=== PATIENT | male | born 1980 | race Caucasian/White ===

== ENCOUNTER 2017-07-23 08:14 | Day surgery (SDC) | payer MEDICARE, MEDICAID, SELFPAY ==
--- NOTE | 2017-07-23 | COLBX_PTH ---
PATIENT: CAS SANCHEZ LOC: EN U#:[id number] AGE/SX: 37/M ROOM: RE07/23/[address]: Dr. Des Hurd MD : 1980 BED: DIS: 07/23/2017 SPEC #: [id number] RECD: 07/23/17 11:43 STATUS: LIAN TIMOTHY #: [id number] SELINA: 07/23/17 00:[address]: Des Hurd DEPT: SURGICAL PATHOLOGY RECD BY: Kris Lott ENTERED: 07/23/17 11:43 SP TYPE: COLON BX OTHR DR: No Primary Care Phys Tissues: Rectum, NOS Procedures: Surgery Specimen Level IV HEADER OPERATION: Colonoscopy with biopsy PRE-OP DIAGNOSIS: History of polyp TISSUE SUBMITTED: Rectal polyp biopsy MICROSCOPIC DIAGNOSIS Rectal polyp, biopsy: Hyperplastic polyp. SJ:beatris 07/24/17 MICROSCOPIC DESCRIPTION Slides are reviewed. GROSS DESCRIPTION Received in fixative is one container labeled with the patient's name and designated rectal polyp biopsy. The specimen consists of one irregular fragment of light go soft tissue that measures 0.5 x 0.2 x 0.1 cm. The specimen is totally submitted in one cassette. / SJ:beatris 07/23/17 TC:1 CPT: 25457
[2017-07-23 08:44] VITALS: BP 128/84; PULSE 99; RESP 16; TEMP 37.3; O2SAT 97; BMI 27.2
--- NOTE | 2017-07-23 10:32 | PCM.OPRPT ---
Problem List (1) Personal history of colonic polyps Status: Acute Report of Operation Date of Procedure: 07/23/17 Pre-Operative Diagnosis: z86.010 personal history of colonic polyps Post-Operative Diagnosis: Same Surgery/Procedure Performed:: 09240 colonoscopy with biopsy Type of Anesthesia:: MAC Description of Procedure: Patient was brought into the endoscopy suite. Placed in the left lateral decubitus position. Was given graded anesthesia. Colonoscopic scope was inserted into the rectum. Scope was directed through the sigmoid colon, descending colon, transverse colon, ascending colon, cecum, into the terminal ileum. Operative findings: 1. Terminal ileum: Normal appearance no mass lesions mucosal all look normal no signs of friability no signs of bleeding. 2. Cecum: Normal appearance no mass lesions normal ileocecal valve. 3. Ascending colon: Normal appearance no mass lesions. 4. Transverse colon: Normal appearance no mass lesions. 5. Descending colon: Normal appearance no mass lesions. 6. Sigmoid colon: Normal appearance no mass lesions. 7. Rectum: Normal appearance small hyperplastic polyp was identified was removed with biopsy forceps in its entirety. It was sent to pathology for permanent sectioning. The scope was withdrawn and a rectal exam was performed showing a smooth prostate with no nodules. There are no masses within his anus. The mucosa the entire colon was normal there is no signs of erythema there was no signs of colitis. - Admit VTE Documentation VTE Present on Admission: No VTE Mechan Device Prophylaxis: None VTE Pharm Prophylaxis ordered?: No Reason prophylaxis not ordered:: Treatment Not Indicated
[2017-07-23 10:35] VITALS: BP 128/84; BP 138/98; PULSE 116; RESP 16; TEMP 37.9; O2SAT 96
[2017-07-23 10:45] VITALS: BP 125/78; PULSE 99; RESP 18; O2SAT 96
[2017-07-23 10:50] VITALS: BP 127/86; BP 128/84; PULSE 93; RESP 16; TEMP 37.8; O2SAT 96
[2017-07-23 11:11] VITALS: BP 128/84
== END 2017-07-23 11:13 | disposition home or self-care (01) ==
LOC: EN 08:17 → AC 08:18
PROVIDERS: Visit Provider Surgery
PROC: 0DJD8ZZ Inspection of Lower Intestinal Tract, Via Natural or Artificial Opening Endoscopic (ICD-10-PCS; CPT 45378; principal; 2017-07-23 10:10)
DX: K62.1 Rectal polyp (principal); I10 Essential (primary) hypertension; F31.9 Bipolar disorder, unspecified; K21.9 Gastro-esophageal reflux disease without esophagitis; F41.9 Anxiety disorder, unspecified; F17.210 Nicotine dependence, cigarettes, uncomplicated; Z86.010 Personal history of colon polyps; Z86.718 Personal history of other venous thrombosis and embolism
CPT/HCPCS: 45380; 88305; J7120; J1610

== ENCOUNTER 2017-08-20 09:08 | Emergency (ER) | payer MEDICARE, MEDICAID, SELFPAY ==
[2017-08-20 09:10] VITALS: BP 94/69; PULSE 147; RESP 24; TEMP 36.8; O2SAT 97; BMI 31.4
--- NOTE | 2017-08-20 09:20 | CT_ITS ---
STUDY: CT ABDOMEN AND PELVIS WITHOUT CONTRAST REASON FOR EXAM: Male, 37 years old. Right-sided flank pain x1 week. RADIATION DOSAGE (If Supplied By Facility): CTDIvol = ( 12.60 ) mGy, DLP = ( 629.81 ) mGycm TECHNIQUE: Transaxial images were obtained from the dome of the diaphragm to the symphysis pubis without oral contrast, and without intravenous contrast. Sagittal and coronal images were reconstructed. Individualized dose optimization techniques were used for this CT. COMPARISON: March 24, 2017. FINDINGS: The visualized lung bases are unremarkable. The visualized portions of the heart are within normal limits. Normal liver. Normal gallbladder and extrahepatic biliary system. Normal spleen. Normal pancreas. There is mild left adrenal hyperplasia. Right adrenal appears unremarkable. There is a 2 mm nonobstructing calculi within the collecting system of the left renal upper pole seen on sequence 2, image 54. There is a 5.3 mm calculi within the collecting system of the right renal midpole to lower pole junction on sequence 2, image 70. Normal visualized stomach. Normal small intestine. Normal colon. The appendix is visualized and appears normal. Normal abdominal aorta. Normal inferior vena cava. Normal retroperitoneum. Normal urinary bladder. Normal abdominal wall. Normal osseous structures. CT/Abdomen/Pelvis without Cont IMPRESSION: Stable mild left adrenal hyperplasia. Bilateral nonobstructing renal calculi. The largest measures 5.3 mm in maximum dimension within the collecting system of the right renal midpole to lower pole junction region. No hydronephrosis. No ureteral calculi. No hydroureter. Electronically Signed: Heriberto Gayle MD at 11:04 EDT , Service support ,
[2017-08-20 10:03] LABS: Absolute Lymphocyte Count 1.65 X10^3/ul (0.83-4.51); Absolute Neutrophil Count 7.2 X10^3/uL (2.0-7.7); Basophil# 0.01 X10^3/uL; Basophil% 0.1 % (0-1); Eosinophil# 0.07 X10^3/uL; Eosinophils% 0.7 % (0-5); Hemoglobin 16.3 g/dl (13.0-16.5); Lymphocyte # 1.65 X10^3/ul (4.0); Lymphocyte % 17.1 % (19-41); Mean Corp Hgb Conc 36.2 g/gl (32-36); Mean Corpuscular Hgb 29.8 pg (27.0-32.0); Mean Corpuscular Volume 82.3 fL (80-94); Mean Platelet Vol. 11.9 fl (6.2-12.0); Monocyte# 0.71 X10^3/uL; Monocyte% 7.4 % (0-10); Neutrophil # 7.18 X10^3/uL (2.7-7.7); Neutrophil % 74.4 % (47-70); Platelet Count 243 K/mm3 (150-450); RBC Distribution Width CV 13.9 % (11.6-14.6); RBC Distribution Width SD 41.7 fl (35.1-43.9); Red Blood Count 5.47 M/mm3 (4.6-6.2); White Blood Count 9.7 K/mm3 (4.4-11.0)
[2017-08-20] MEDS: proMETHazine 25 MG/ML Syringe 12.5 MG IV (10:03)
[2017-08-20 10:04] LABS: POSITIVE COUNT NO; POSITIVE DIFFERENTIAL NO; POSITIVE MORPHOLOGY NO
[2017-08-20] MEDS: HYDROmorphone 1 MG/ML Syringe IV ×2 (10:04→12:44)
[2017-08-20] MEDS: Ketorolac 30 MG/ML Syringe IV (10:04)
[2017-08-20] MEDS: 0.9% Normal Saline 1,000 ML 1000 ML IV ×2 (10:04→11:24)
[2017-08-20 10:13] LABS: ALB/GLOB Ratio 1.4 RATIO (0.9-2.4); AST(SGOT) 17 U/L (15-37); Alanine Aminotransfer ALT/SGPT 31 U/L (16-61); Albumin, Serum 4.9 g/dL (3.2-5.0); Alkaline Phosphatase 95 U/L (45-117); Anion Gap 10 (5-15); BUN 12 mg/dL (7-18); BUN/Creat Ratio 10.5 RATIO (10-20); CPK Total, Creatine Kinase 106 U/L (39-308); Calcium,Total 9.8 mg/dL (8.5-10.1); Chloride 108 mmol/L (98-107); Creatinine, Serum 1.14 mg/dL (0.70-1.30); EST Glomerular Filtration Rate 76 mL/min (>60); Est Glom Filt Rate - Afr Amer 92 mL/min (>60); Estimated Creatinine Clearance 98.32 ml/min; Globulin 3.5 g/dL (2.2-4.2); Glucose 103 mg/dL (74-106); Potassium 4.1 mmol/L (3.5-5.1); Protein, Total 8.4 g/dL (6.4-8.2); Sodium Level 135 mmol/L (136-145)
[2017-08-20 10:17] LABS: Red Blood Cells-Urine 0 SEEN /hpf (0-5); Squamous Epithelial Cells - UA 0 SEEN /hpf (0-5); White Blood Cells 0 SEEN /hpf (0-5)
[2017-08-20 10:20] LABS: Color, Urine Yellow (Yellow); Glucose, Dipstick Normal (Normal); Ketone-Dipstick 50 mg/dl (Negative); Leukocyte Esterase-Dipstick Negative /ul (Negative); Nitrite-Dipstick Negative (Negative); Occult Blood-Urine 10 /ul (Negative); Protein-Dipstick 15 mg/dl (Negative); Urine Bilirubin Dipstick Negative (Negative); Urine Clarity Clear (Clear); Urine Urobilinogen Normal (Normal)
[2017-08-20 10:26] LABS: Bacteria RARE /hpf (None Seen); Mucous, Urine RARE /hpf (<or=2+)
[2017-08-20 11:10] VITALS: BP 133/81; PULSE 115; RESP 16; O2SAT 98
--- NOTE | 2017-08-20 11:13 | ED.VISSUMM ---
- ER Visit Summary Date of Service: 08/20/17 Chief Complaint: [Abdominal pain] History of Present Illness: The patient is a 37 M [presents the emergency department with right lower quadrant pain and right low back pain that started about a week ago. Patient rates his pain an 8 out of 10. Patient's had nausea but no vomiting. Patient did have some diarrhea ?2 today. Patient states at times a stool looks a little orange and has a follow odor to it. Patient states that he has had decreased urine output. Patient does have a history of cyclic vomiting syndrome, GERD, bipolar disorder, Guilbert syndrome. Patient denies any fevers at home. She describes a dry mouth.] Physical Examination: [HEENT-PERRLA, EOMI. Cranial nerves II through XII grossly intact. TMs clear. Mucous membranes dry. No adenopathy. Cardiovascular-regular and tachycardic, no murmurs auscultated Lungs-clear to auscultation, chest wall stable without crepitus or subcu emphysema Abdomen-normoactive bowel sounds, soft patient has some right lower quadrant tenderness on palpation with some guarding. There is no rebound, rigidity, or perineal signs. Patient has some mild CVA tenderness on the right. Extremities-intact ?4, normal range of motion, normal pulses, atraumatic] Test Results: [CBC with differential obtained showed a white count of 9.7, hemoglobin 16, hematocrit 45, platelets 243. Chemistries unremarkable. CO2 was 17. LFTs were unremarkable. Urinalysis showed no signs of infection but he did have ketones noted. CT flank showed renal stones nonobstructing otherwise nothing acute.] Emergency Department Course and Treatment: [Patient will receive 2 L of normal saline. Patient's nausea improved with Phenergan.] Treatment Plan: [She will be given a prescription for Phenergan] Disposition: [Discharged home in stable condition. Patient advised to return if worsening pain, fever, dehydration, or condition should worsen in any way.] Impression: [Abdominal pain-etiology uncertain Dehydration] This note was generated with [employer] dictation software. It may contain incorrect words, spelling, and punctuation that were not noted in review of the chart prior to signing ED Disposition - Plan for ED Patient: Chief Complaint: General Illness Referrals: Care Physician,No Primary [Primary Care Provider] -
--- NOTE | 2017-08-20 11:17 | ED.DEP ---
ED Disposition - Plan for ED Patient: Chief Complaint: General Illness Instructions: ED Abdominal Pain Unkn Cause, ED Dehydration Prescriptions: proMETHazine tablet [Phenergan] 25 mg PO Q6H PRN PRN #10 tab PRN Reason: Nausea Referrals: Care Physician,No Primary [Primary Care Provider] - Lyndon Landon MD [STAFF PHYSICIAN] - 3-5 Days
[2017-08-20] MEDS: Ondansetron 4 MG/2 ML Vial IV (11:21)
[2017-08-20 14:16] VITALS: BP 134/94; PULSE 110; RESP 16; O2SAT 98
== END 2017-08-20 14:17 | disposition home or self-care (01) ==
PROVIDERS: Emergency Provider Emergency Medicine
DX: R10.9 Unspecified abdominal pain (principal); E86.0 Dehydration; R11.0 Nausea; K21.9 Gastro-esophageal reflux disease without esophagitis; I10 Essential (primary) hypertension; N20.0 Calculus of kidney; Z72.0 Tobacco use
CPT/HCPCS: 74176; 80053; 81001; 82550; 85025; 99284; J7030; A4216; J2405

== ENCOUNTER 2017-08-21 14:39 | Emergency (ER) | payer MEDICARE, MEDICAID, SELFPAY ==
[2017-08-21 14:40] VITALS: BP 133/71; PULSE 129; PULSE 132; RESP 20; TEMP 36.7; O2SAT 97; O2SAT 99; BMI 26.8
--- NOTE | 2017-08-21 15:00 | ED.DCSUM_ITS ---
- ER Visit Summary Date of Service: 08/21/17 Chief Complaint: Abdominal pain with nausea and vomiting since 02: 00. History of Present Illness: The patient is a 37 M who was seen yesterday had a significant workup including a CAT scan of the abdomen which revealed nonobstructing renal stones. He was treated with 2 L of normal saline and opiate analgesia. He reports history of cyclic vomiting. states he did not wish to return. Patient is apologetic that he return. He denies fever, chills night sweats. He denies headache, visual, ocular auditory symptoms. He does give orthostatic symptoms. He denies any cardiac or respiratory symptoms. He complains of severe pain left side of the abdomen and right lower quadrant. He denies any history of trauma. He states he had a bowel movement this morning. He is passing gas. He reports decreased urine output. Physical Examination: Vitals are remarkable for elevated blood pressure 133/71, heart rate 132. HEENT exam is marked for dry mucosa. Heart is rapid and regular without murmur, gallop or rub. Lungs are clear to auscultation. Abdomen is soft with tenderness without guarding or rebound tenderness. Bowel sounds are slightly diminished. There is no hepatosplenomegaly. There is no evidence of trauma to the torso. Neuro exam is nonfocal. Test Results: None were ordered Emergency Department Course and Treatment: Since patient has significant workup yesterday which was unremarkable will treat with IV fluids and entered cyclic vomiting order set. Nursing staff was told he would not receive any opiate analgesia since this causes nausea and vomiting. Treatment Plan: Informed at 1605 he was complaining of pain. Bentyl was ordered. He will receive 2 L of normal saline. Disposition: Pending reevaluation after treatment Impression: 1. Moderate to severe dehydration secondary to cyclic vomiting 2. Sinus tachycardia documented on monitor 3. History of PTSD 4. History of hypertension This note was generated with [employer] dictation software. It may contain incorrect words, spelling, and punctuation that were not noted in review of the chart prior to signing ED Disposition - Plan for ED Patient: Disposition: Home or Assisted Living Chief Complaint: Abd Pain Instructions: When Your Child Has Cyclic Vomiting Syndrome ([facility]) Referrals: Care Physician,No Primary [Primary Care Provider] -
[2017-08-21] MEDS: Ondansetron 4 MG/2 ML Vial IV (15:13)
[2017-08-21] MEDS: LORazepam 2 MG/ML Syringe 0.5 MG IV (15:13)
[2017-08-21] MEDS: 0.9% Normal Saline 1,000 ML 1000 ML IV ×2 (15:57→16:52)
[2017-08-21] MEDS: Dicyclomine 10 MG Capsule 20 MG PO (16:48)
[2017-08-21] MEDS: 0.9% Normal Saline 1,000 ML 999 ML IV ×2 (16:51→18:21)
[2017-08-21 16:52] VITALS: BP 120/89; PULSE 110; RESP 24; O2SAT 99
[2017-08-21] MEDS: Ketorolac 30 MG/ML Syringe IV (17:21)
[2017-08-21 18:10] VITALS: BP 127/82; PULSE 103; RESP 20; O2SAT 95
[2017-08-21 18:52] VITALS: BP 131/85; PULSE 99; RESP 18; O2SAT 96
== END 2017-08-21 18:53 | disposition home or self-care (01) ==
PROVIDERS: Emergency Provider Emergency Medicine
DX: G43.A0 Cyclical vomiting, in migraine, not intractable (principal); R00.0 Tachycardia, unspecified; I10 Essential (primary) hypertension; N20.0 Calculus of kidney; Z72.0 Tobacco use
CPT/HCPCS: 99282; J7030; J2405; J3490

== ENCOUNTER → 2017-09-08 12:09 | Outpatient (CLI) | payer MEDICARE, MEDICAID, SELFPAY ==
--- NOTE | 2017-09-08 08:00 | LES_PTH ---
PATIENT: CAS SANCHEZ LOC: APRIL U#:[id number] AGE/SX: 44/M ROOM: RE09/08/[address]: Dr. Des Hurd MD : 1980 BED: DIS: SPEC #: [id number] RECD: 09/08/17 11:53 STATUS: LIAN TIMOTHY #: [id number] SELINA: 09/08/17 08:[address]: Des Hurd DEPT: SURGICAL PATHOLOGY RECD BY: Kris Lott ENTERED: 09/10/17 10:37 SP TYPE: Lesion OTHR DR: No Primary Care Phys Tissues: A - Skin of back, NOS B - Skin of back, NOS C - Skin of flank, NOS Procedures: Surgery Specimen Level III HEADER OPERATION: Excision of subcutaneous lesions PRE-OP DIAGNOSIS: Lesions of subcutaneous tissue L98.9 TISSUE SUBMITTED: A - Subcutaneous lesion of center back, B - Subcutaneous lesion of right lower back, C - Subcutaneous lesion of left ribs MICROSCOPIC DIAGNOSIS A. Subcutaneous lesion, center back, biopsy: Angiolipoma. B. Subcutaneous lesion, right lower back, biopsy: Angiolipoma. C. Subcutaneous lesion, left ribs, biopsy: Mature adipose tissue, consistent with lipoma with focal area of angiolipoma. CHARAN:beatris 09/11/17 MICROSCOPIC DESCRIPTION Slides are reviewed. GROSS DESCRIPTION A - Received in fixative is one container labeled with the patient's name and designated center back. The specimen consists of a piece of adipose tissue measuring 2 x 1 x 0.7 cm. The external surface is inked. Sections reveal yellow adipose cut surfaces without areas of hemorrhage, necrosis or cystic degeneration. The specimen is bisected and submitted entirely in one cassette. B - Received in fixative is one container labeled with the patient's name and designated right lower back. The specimen consists of four variable size pieces of adipose tissue measuring in aggregate 2 x 1.5 x 0.5 cm. One of the largest pieces is bisected. The entire specimen is submitted in one cassette. C - Received in fixative is one container labeled with the patient's name and designated left rib. The specimen consists of two pieces of yellow adipose tissue measuring 1.5 x 1 x 0.5 cm and 2 x 1.7 x 1.7 cm. Sections reveal yellow adipose cut surfaces without area of hemorrhage, necrosis or cystic degeneration. Certified Orthoptist sections are submitted in one cassette. / CHARAN:beatris 09/10/17 TC:1 CPT: 31936 x3
== END ==
PROVIDERS: Visit Provider Surgery
DX: L98.9 Disorder of the skin and subcutaneous tissue, unspecified (principal)
CPT/HCPCS: 88304; 88305

== ENCOUNTER → 2018-01-12 07:30 | Outpatient (CLI) | payer MEDICARE, MEDICAID, SELFPAY ==
--- NOTE | 2018-01-12 07:30 | LES_PTH ---
PATIENT: CAS SANCHEZ LOC: [facility] U#:[id number] AGE/SX: 44/M ROOM: RE01/12/[address]: Dr. Des Hurd MD : 1980 BED: DIS: SPEC #: [id number] RECD: 01/12/18 11:28 STATUS: LIAN TIMOTHY #: [id number] SELINA: 01/12/18 07:[address]: Des Hurd DEPT: SURGICAL PATHOLOGY RECD BY: Kris Lott ENTERED: 01/14/18 10:45 SP TYPE: Lesion OTHR DR: No Primary Care Phys Tissues: A - Thigh, NOS B - Thigh, NOS C - Thigh, NOS D - Flank, NOS Procedures: Surgery Specimen Level IV HEADER OPERATION: Excision of multiple subcutaneous skin lesion PRE-OP DIAGNOSIS: Lesion of subcutaneous tissue L98.9 TISSUE SUBMITTED: A ? Left inner thigh tissue, B ? Lateral left thigh tissue, C ? Medial left thigh tissue, D ? Right flank tissue MICROSCOPIC DIAGNOSIS A. Soft tissue lesion, left inner thigh, excision: Mature adipose tissue consistent with angiolipoma. B. Soft tissue lesion, left lateral thigh, excision: Mature adipose tissue consistent with angiolipoma. C. Soft tissue lesion, left medial thigh, excision: Mature adipose tissue consistent with angiolipoma. D. Soft tissue lesion, right flank, excision: Mature adipose tissue consistent with angiolipoma. AM:beatris 01/15/18 MICROSCOPIC DESCRIPTION Slides are reviewed. GROSS DESCRIPTION A - Received in fixative is one container labeled with the patient's name and designated left inner thigh. The specimen consists of a piece of yellow adipose tissue measuring 1.5 x 1 x 0.7 cm. The specimen is serially sectioned and reveals yellow adipose cut surfaces without area of hemorrhage, necrosis or cystic degeneration. The entire specimen is submitted in one cassette. B - Received in fixative is one container labeled with the patient's name and designated lateral left thigh. The specimen consists of a piece of yellow adipose tissue measuring 1.5 x 1.5 x 0.5 cm. The specimen is bisected and submitted entirely in one cassette. C - Received in fixative is one container labeled with the patient's name and designated medial left thigh. The specimen consists of a piece of yellow adipose tissue measuring 2 x 2 x 0.7 cm. The specimen is bisected and submitted entirely in one cassette. D - Received in fixative is one container labeled with the patient's name and designated right flank. The specimen consists of a piece of yellow adipose tissue measuring 2 x 2 x 1.5 cm. The specimen is bisected and submitted entirely in one cassette. / SJ:beatris 01/14/18 TC:1 CPT: 90637 x4
== END ==
PROVIDERS: Visit Provider Surgery
DX: L98.9 Disorder of the skin and subcutaneous tissue, unspecified (principal)
CPT/HCPCS: 88305

== ENCOUNTER 2018-03-08 12:01 | Emergency (ER) | payer MEDICARE, MEDICAID, SELFPAY ==
[2018-03-08 12:03] VITALS: BP 150/111; PULSE 111; RESP 17; TEMP 36.9; O2SAT 99; BMI 28.5
--- NOTE | 2018-03-08 12:31 | CT_ITS ---
STUDY: CT BRAIN WITHOUT CONTRAST REASON FOR EXAM: Male, 37 years old. One week history of headaches and cervical pain. RADIATION DOSAGE (If Supplied By Facility): CTDIvol = ( 60.81 ) mGy, DLP = ( 1089.89 ) mGycm TECHNIQUE: Transaxial CT imaging of the brain was performed without administration of intravenous contrast material. Individualized dose optimization techniques were used for this CT. COMPARISON: None. FINDINGS: Normal soft tissue structures. Normal calvarium. Normal size ventricles and extra-axial spaces for the patient's age. Normal white matter tracts of the cerebral hemispheres. Normal basal ganglia and thalami. Normal brainstem. Normal cerebellum. There is no intracranial hemorrhage. There are no findings of an acute ischemic infarction. Partial opacification of the ethmoid sinuses. Air-fluid level in the right sphenoid sinus. CT/Brain/Head without Contrast IMPRESSION: No acute intracranial abnormality is seen. Partial opacification of the ethmoid sinuses and air-fluid level in the right sphenoid sinus. Electronically Signed: Kofi Johnson MD at 13:36 EST Tel [phone], Service support ,
[2018-03-08 13:11] LABS: Anion Gap 7 (5-15); BUN 5 mg/dL (7-18); BUN/Creat Ratio 4.9 RATIO (10-20); Chloride 102 mmol/L (98-107); Creatinine, Serum 1.02 mg/dL (0.70-1.30); EST Glomerular Filtration Rate 86 mL/min (>60); Est Glom Filt Rate - Afr Amer 104 mL/min (>60); Estimated Creatinine Clearance 109.88 ml/min; Glucose 87 mg/dL (74-106); Potassium 4.5 mmol/L (3.5-5.1); Sodium Level 134 mmol/L (136-145)
[2018-03-08 13:14] LABS: Absolute Lymphocyte Count 1.12 X10^3/ul (0.83-4.51); Absolute Neutrophil Count 4.4 X10^3/uL (2.0-7.7); Basophil# 0.02 X10^3/uL; Basophil% 0.3 % (0-1); Eosinophil# 0.24 X10^3/uL; Eosinophils% 3.7 % (0-5); Hemoglobin 15.1 g/dl (13.0-16.5); Lymphocyte # 1.12 X10^3/ul (4.0); Lymphocyte % 17.4 % (19-41); Mean Corp Hgb Conc 35.1 g/gl (32-36); Mean Corpuscular Hgb 29.8 pg (27.0-32.0); Mean Platelet Vol. 12.2 fl (6.2-12.0); Monocyte# 0.67 X10^3/uL; Monocyte% 10.4 % (0-10); Neutrophil # 4.36 X10^3/uL (2.7-7.7); Neutrophil % 67.9 % (47-70); Platelet Count 166 K/mm3 (150-450); RBC Distribution Width CV 14.1 % (11.6-14.6); RBC Distribution Width SD 43.2 fl (35.1-43.9); Red Blood Count 5.06 M/mm3 (4.6-6.2); White Blood Count 6.4 K/mm3 (4.4-11.0)
[2018-03-08 13:15] LABS: POSITIVE COUNT NO; POSITIVE DIFFERENTIAL NO; POSITIVE MORPHOLOGY NO
[2018-03-08] MEDS: Ketorolac 15 MG/ML Vial IV (13:16)
[2018-03-08 14:21] VITALS: BP 156/128; PULSE 86; O2SAT 92
--- NOTE | 2018-03-08 14:39 | ED.VISSUMM ---
- ER Visit Summary Date of Service: 03/08/18 Chief Complaint: Bifrontal vertex headache, right-sided abdominal/torso pain and right testicular pain. History of Present Illness: The patient is a 37 M who was seen in urgent care and placed on amoxicillin clavulanic acid for inflamed nares. He denies double vision, blurred vision or loss of vision. He does complain of frontal vertex headache that may have a positional component. He denies ear pain, decreased hearing or ringing in his ears. He denies trouble with speech or swallowing. He denies neck pain or neck stiffness. He denies cardiac or respiratory symptoms. He denies dysuria, frequency, urgency hematuria. He does complain right abdominal pain with nausea without vomiting or diarrhea. He denies black or maroon stool. He has no other complaints please read written note Physical Examination: Patient does not appear in as much discomfort as he describes. Vital signs are remarkable for blood pressure 150/111 and heart rate of 111. Head is atraumatic normocephalic. Pupils are equal round reactive. Extraocular muscles are intact. TMs are pearly white with landmarks noted. Nares patent with no drainage. Patient reports tenderness to palpation over the ethmoid/frontal region. Posterior pharynx without erythema or exudate. Uvula is midline. There is no dysphonia or dysphasia. Trachea is midline. There is no stridor with auscultation of the neck. Neck is supple with no meningeal findings. Heart is regular without murmur, gallop or rub. S1 and S2 are normal. Lungs are clear to auscultation with good movement of air bilaterally. Abdomen is soft and nontender. There is no guarding or peritoneal findings. There is no palpable pulsatile mass. There is no abdominal bruit. Lopez sign is negative. Negative Rovsing sign. There is no evidence of inguinal or umbilical hernia. Testes are descended bilateral with bilateral cremasteric reflex. There is no swelling of the testicles or tenderness of the epididymis. There is no penile lesion or discharge noted. There is no CVA tenderness. Patient is alert and oriented ?3. Motor is 5 over 5. Sensory is intact. DTRs are symmetric with no clonus or Babinski sign. Cranial 2 through 12 are intact. Cerebellar testing is normal. Test Results: CT reveals evidence of bilateral ethmoid and right sphenoid sinusitis. White count is normal with normal differential. Electrolyte panel is normal. Emergency Department Course and Treatment: To evaluate patient's headache especially since he complains of vertex headache CT of the head was obtained because of concern for sphenoid sinusitis. The tenderness over the ethmoid and frontal 1 the second concerned with frontal sinusitis. He is on appropriate antibiotic. With regards to his testicular pain uncertain the cause. Treatment Plan: Opiate analgesia for his pain and follow-up with physician at [facility] for further testing of his right testicular pain. Disposition: Discharge to home Impression: 1. Headache secondary to ethmoid and right sphenoid sinusitis 2. Right testicular pain of unknown cause 3. Right-sided abdominal pain of unknown cause This note was generated with [employer] dictation software. It may contain incorrect words, spelling, and punctuation that were not noted in review of the chart prior to signing ED Disposition - Plan for ED Patient: Disposition: Home or Assisted Living Chief Complaint: Other, Pain/Inj Instructions: ED Sinusitis Abx Tx, ED Acute Pain [facility] Prescriptions: Hydrocodone Bitart/Apap 5-325 [Addison 5MG-325MG] 1 tab PO Q6H PRN PRN 3 Days #10 tab PRN Reason: Pain Referrals: Ja Ashton MD [Primary Care Provider] - Keep Marcos appointment
[2018-03-08] MEDS: HYDROcodone Bitartrate/Apap 5/325 Tablet PO (14:56)
[2018-03-08 14:58] VITALS: BP 170/100; PULSE 85; RESP 16; O2SAT 100
== END 2018-03-08 15:00 | disposition home or self-care (01) ==
PROVIDERS: Emergency Provider Emergency Medicine; Family Provider Family Medicine; PCP Family Medicine
DX: J32.3 Chronic sphenoidal sinusitis (principal); N50.811 Right testicular pain; R10.9 Unspecified abdominal pain; J32.1 Chronic frontal sinusitis; I10 Essential (primary) hypertension; Z72.0 Tobacco use
CPT/HCPCS: 70450; 80048; 85025; 96374; 99283; A4216

== ENCOUNTER 2018-05-01 08:10 | Emergency (ER) | payer MEDICARE, MEDICAID, SELFPAY ==
[2018-05-01 08:12] VITALS: BP 162/110; PULSE 126; RESP 18; TEMP 36.3; O2SAT 100; BMI 27.7
--- NOTE | 2018-05-01 08:23 | US_ITS ---
STUDY: SCROTUM ULTRASOUND REASON FOR EXAM: Male, 37 years old. Pain/tenderness of the right testicle. TECHNIQUE: Ultrasound evaluation of the scrotum was performed with color Doppler and static mauro-scale imaging. COMPARISON: None. FINDINGS: RIGHT TESTICLE INTRATESTICULAR: There is a normal size of the right testicle. The right testicle measures 4.0 cm x 2.8 cm x 2.3 cm. There is a homogenous echotexture. There is normal arterial and normal venous vascularity. There is no demonstrated right testicular mass or cyst. EXTRATESTICULAR: The epididymis is normal in size. The epididymis head measures 0.9 cm x 1.1 cm x 1.4 cm. There is increased (hyperemic) vascularity of the epididymis. There is a well-defined cystic structure within the epididymis, without internal echoes, consistent with an epididymal cyst. This measures 6 mm x 5 mm x 7 mm. There is no demonstrated hydrocele. There is no demonstrated varicocele. There is no demonstrated extratesticular mass or cyst. LEFT TESTICLE INTRATESTICULAR: There is a normal size of the left testicle. The left testicle measures 4.3 cm x 3.0 cm x 2.1 cm. There is a homogenous echotexture. There is normal arterial and normal venous vascularity. There is no demonstrated left testicular mass or cyst. EXTRATESTICULAR: The epididymis is normal in size. The epididymis head measures 1.3 cm x 1.4 cm x 0.7 cm. There is normal vascularity of the epididymis. There is no demonstrated epididymal cystic structure. There is no demonstrated hydrocele. There is no demonstrated varicocele. There is no demonstrated extratesticular mass or cyst. US/Testicular with Arterial Flow IMPRESSION: Increased vascularity in the body and tail portion of the right epididymis suggestive of epididymitis. Small right epididymal cyst. Electronically Signed: Kofi Johnson MD at 10:32 EST Tel [phone], Service support ,
[2018-05-01] MEDS: HYDROmorphone 1 MG/ML Syringe IV ×2 (09:02→10:26)
[2018-05-01] MEDS: Ondansetron 4 MG/2 ML Vial IV (09:02)
[2018-05-01 09:16] LABS: Absolute Lymphocyte Count 1.33 X10^3/ul (0.83-4.51); Absolute Neutrophil Count 9.6 X10^3/uL (2.0-7.7); Basophil# 0.02 X10^3/uL; Basophil% 0.2 % (0-1); Eosinophil# 0.26 X10^3/uL; Eosinophils% 2.2 % (0-5); Hematocrit 42.8 % (40-54); Lymphocyte # 1.33 X10^3/ul (4.0); Lymphocyte % 11.3 % (19-41); Mean Corpuscular Hgb 29.5 pg (27.0-32.0); Mean Corpuscular Volume 84.3 fL (80-94); Mean Platelet Vol. 11.4 fl (6.2-12.0); Monocyte# 0.58 X10^3/uL; Monocyte% 4.9 % (0-10); Neutrophil # 9.57 X10^3/uL (2.7-7.7); Neutrophil % 81.2 % (47-70); Platelet Count 196 K/mm3 (150-450); RBC Distribution Width CV 13.9 % (11.6-14.6); RBC Distribution Width SD 43.1 fl (35.1-43.9); Red Blood Count 5.08 M/mm3 (4.6-6.2); White Blood Count 11.8 K/mm3 (4.4-11.0)
[2018-05-01 09:18] LABS: POSITIVE COUNT NO; POSITIVE DIFFERENTIAL NO; POSITIVE MORPHOLOGY NO
[2018-05-01 09:22] LABS: Anion Gap 10 (5-15); BUN 11 mg/dL (7-18); BUN/Creat Ratio 10.5 RATIO (10-20); Calcium,Total 8.9 mg/dL (8.5-10.1); Chloride 107 mmol/L (98-107); Creatinine, Serum 1.05 mg/dL (0.70-1.30); EST Glomerular Filtration Rate 83 mL/min (>60); Est Glom Filt Rate - Afr Amer 101 mL/min (>60); Estimated Creatinine Clearance 109.82 ml/min; Glucose 103 mg/dL (74-106); Potassium 4.2 mmol/L (3.5-5.1); Sodium Level 137 mmol/L (136-145)
[2018-05-01 11:48] LABS: Bacteria 0 SEEN /hpf (None Seen); Mucous, Urine 0 SEEN /hpf (<or=2+); Red Blood Cells-Urine 0 SEEN /hpf (0-5); Squamous Epithelial Cells - UA 0 SEEN /hpf (0-5); White Blood Cells 0 SEEN /hpf (0-5)
[2018-05-01 11:49] LABS: Color, Urine Yellow (Yellow); Glucose, Dipstick Normal (Normal); Ketone-Dipstick Negative (Negative); Leukocyte Esterase-Dipstick Negative /ul (Negative); Nitrite-Dipstick Negative (Negative); Occult Blood-Urine Negative /ul (Negative); Protein-Dipstick Negative (Negative); Urine Bilirubin Dipstick Negative (Negative); Urine Clarity Sl. Cloudy (Clear); Urine Urobilinogen Normal (Normal)
[2018-05-01 11:56] LABS: Amorphous Sediment 1+
[2018-05-01 12:12] VITALS: BP 151/90; PULSE 107; RESP 15; O2SAT 99
[2018-05-01 12:30] LABS: Chlamydia Trachomatis by PCR Negative (Negative); Neisserai gonorrhoeae by PCR Negative (Negative); Probe Check PASS; Sample Adequacy Control PASS; Specimen Processing Control PASS
--- NOTE | 2018-05-01 12:32 | ED.VISSUMM ---
- ER Visit Summary Date of Service: 05/01/18 Chief Complaint: Testicle pain History of Present Illness: The patient is a 37 M with right side testicle pain. This has been going on for weeks but was worse over the last few days. His doctor ordered antibiotics, ultrasound, and labs. He came in today because the pain was unbearable. Denies any rash or discharge. Denies any urinary symptoms. Denies fever or systemic symptoms. No history of this in the past. No trauma. Physical Examination: Afebrile and vital signs unremarkable except for a heart rate of 126. He appears very uncomfortable. Alert and oriented. Abdomen soft and nontender. Right testicle tender to palpation. Skin normal. Otherwise normal. Test Results: White count 11.8. Urinalysis normal. Gonorrhea and Chlamydia testing pending. Cultures pending. Ultrasound shows right-sided epididymitis. Emergency Department Course and Treatment: Patient has a prescription for doxycycline. Will add a dose of Rocephin here. He received fluids, Zofran, and Dilaudid here. Will prescribe a course of Percocet. Use scrotal support. Follow-up with Dr. Pascal. Treatment Plan: As above Disposition: Discharge Impression: 1. Right side epididymitis This note was generated with [employer] dictation software. It may contain incorrect words, spelling, and punctuation that were not noted in review of the chart prior to signing ED Disposition - Plan for ED Patient: Chief Complaint: Male Pain/Injury Referrals: Ja Ashton MD [Primary Care Provider] -
--- NOTE | 2018-05-01 12:34 | ED.DEP ---
ED Disposition - Plan for ED Patient: Chief Complaint: Male Pain/Injury Instructions: ED Epididymitis Prescriptions: Oxycodone HCl/Acetaminophen [Percocet 5/325] 1 tab PO Q6H PRN PRN 3 Days #12 tab PRN Reason: Pain Ondansetron [Zofran Odt] 4 mg PO Q8H PRN PRN #10 tab PRN Reason: Nausea Referrals: Fer Pascal MD [STAFF PHYSICIAN] -
[2018-05-01] MEDS: Ceftriaxone 500 MG Vial 250 MG IM (13:10)
[2018-05-01 13:24] VITALS: PULSE 103; RESP 15; O2SAT 98
== END 2018-05-01 13:25 | disposition home or self-care (01) ==
PROVIDERS: Emergency Provider Emergency Medicine; Family Provider Family Medicine; PCP Family Medicine
DX: N45.1 Epididymitis (principal); K21.9 Gastro-esophageal reflux disease without esophagitis; I10 Essential (primary) hypertension; E78.00 Pure hypercholesterolemia, unspecified; F31.9 Bipolar disorder, unspecified; F41.9 Anxiety disorder, unspecified; Z72.0 Tobacco use; Z79.899 Other long term (current) drug therapy
CPT/HCPCS: 76870; 80048; 81001; 85025; 87086; 87491; 87591; 93976; 96372; 96374; 96375; 96376; 99285; A4216; J2405

== ENCOUNTER → 2018-07-04 12:36 | Outpatient (CLI) | payer MEDICARE, MEDICAID, SELFPAY ==
[2018-07-04 12:35] VITALS: BMI 27.7
--- NOTE | 2018-07-04 12:38 | RAD_ITS ---
STUDY: X-RAY - RIGHT HAND REASON FOR EXAM: Male, 38 years old. Pain and swelling about the thumb. Injury. TECHNIQUE: 3 view(s) of the hand. COMPARISON: None. FINDINGS: Normal radiocarpal articulation. Normal distal radioulnar joint. Normal visualized carpal bones. Normal carpal articulations Normal carpometacarpal articulation of the thumb. Normal second through fifth carpometacarpal joints. Normal metacarpi. There is minimal narrowing of the metacarpophalangeal joint of the thumb. On the lateral view there is a small bony density extending outward over the palmar aspect which may represent a small small avulsion fracture. This is not seen on other views, although a small lucency is seen at the base of the proximal phalanx on the AP view. Normal interphalangeal joint of the thumb. Normal proximal and distal phalanges of the thumb. Normal metacarpophalangeal joints of the second through fifth fingers. Normal proximal and distal interphalangeal joints of the second through fifth fingers. Normal phalanges of the second through fifth fingers. Soft tissue swelling over the thenar eminence. RAD/Hand Min 3 Views IMPRESSION: Question small avulsion off the base of the first proximal phalanx with associated soft tissue swelling. Electronically Signed: Naeem Sanchez DO at 20:09 EST Tel [phone], Service support ,
== END ==
PROVIDERS: Family Provider Family Medicine; PCP Family Medicine; Referring Provider Physician Assistant; Visit Provider Physician Assistant
DX: R52 Pain, unspecified (principal)
CPT/HCPCS: 73130

== ENCOUNTER → 2018-09-11 10:40 | Outpatient (CLI) | payer MEDICARE, MEDICAID, SELFPAY ==
[2018-09-11 08:44] VITALS: BMI 29.0
--- NOTE | 2018-09-11 10:51 | RAD_ITS ---
STUDY: X-RAY - RIGHT HAND REASON FOR EXAM: Male, 38 years old. Pain of the thumb following injury. TECHNIQUE: 3 view(s) of the hand. COMPARISON: Comparison is made with prior study of July 04, 2018. FINDINGS: Normal radiocarpal articulation. Normal distal radioulnar joint. Normal visualized carpal bones. Normal carpal articulations Normal carpometacarpal articulation of the thumb. Normal second through fifth carpometacarpal joints. Normal metacarpi. Normal metacarpophalangeal joint of the thumb. Normal interphalangeal joint of the thumb. Small avulsion fracture at the base of the proximal phalanx of the thumb. Normal metacarpophalangeal joints of the second through fifth fingers. Normal proximal and distal interphalangeal joints of the second through fifth fingers. Normal phalanges of the second through fifth fingers. Soft tissue swelling. RAD/Hand Min 3 Views IMPRESSION: Small avulsion fracture at the base of the proximal phalanx of the thumb. Stable examination. Electronically Signed: Kofi Johnson, at 15:44 EDT , Service support ,
== END ==
PROVIDERS: Family Provider Family Medicine; PCP Family Medicine; Referring Provider Orthopaedic Surgery; Visit Provider Orthopaedic Surgery
DX: S62.512A Displaced fracture of proximal phalanx of left thumb, initial encounter for closed fracture (principal)
CPT/HCPCS: 73130

== ENCOUNTER → 2018-09-20 15:46 | Outpatient (CLI) | payer MEDICARE, MEDICAID, SELFPAY ==
[2018-09-11 08:44] VITALS: BMI 29.0
--- NOTE | 2018-09-20 16:14 | MRI_ITS ---
HISTORY: C/O PAIN MPJ AFTER WRESTLING INJURY 2 MONS AGO EXAMINATION: MR Hand Attn right Thumb W/O Contrast TECHNIQUE: Multiplanar and multisequence MR images of the right thumb. IV Contrast dosage and agent: COMPARISON: Right hand x-rays 09/11/2018 and 07/04/2018 FINDINGS: MR exam was correlated with previous plain film x-ray exams. Redemonstration of a small ununited cortical avulsion fracture at the base of the proximal phalanx, right thumb, at the radial collateral ligamentous insertion site. The ulnar collateral ligament is intact. Bony alignment of the first MCP joint is maintained. No avascular necrosis. No subluxation deformity or instability seen. The volar plate appears intact and the ulnar and radial sesamoids appear in good position. No joint effusion, tendinosis, or tenosynovitis. The IP joint of the thumb and the first carpometacarpal joint appear normal. No ganglion cyst or synovial cyst formation seen. MRI/Upper Ext/No Jt/ wo IMPRESSION: 1. Small ununited cortical avulsion fracture, base of the proximal phalanx, right thumb at the radial collateral insertion. 2. Otherwise negative exam. No tendinosis or evidence of instability. No joint effusion. at 0440 Reported and signed by: Andres Metzger MD Electronically Signed: Andres Metzger, at 4:39 EDT Tel , Service support ,
== END ==
PROVIDERS: Family Provider Family Medicine; PCP Family Medicine; Referring Provider Orthopaedic Surgery; Visit Provider Orthopaedic Surgery
DX: S53.31XA Traumatic rupture of right ulnar collateral ligament, initial encounter (principal)
CPT/HCPCS: 73218

== ENCOUNTER → 2018-10-18 10:32 | Outpatient (CLI) | payer MEDICARE, MEDICAID, SELFPAY ==
[2018-09-27 07:58] VITALS: BMI 29.0
--- NOTE | 2018-10-18 10:34 | RAD_ITS ---
STUDY: X-RAY - RIGHT HAND REASON FOR EXAM: Male, 38 years old. Follow-up fracture TECHNIQUE: 3 view(s) of the hand. COMPARISON: Previous study of 09/11/2018 FINDINGS: There is an old table avulsion chip injury of the base of the first proximal phalanx unchanged in appearance from the previous study. The remaining osseous structures and articular surfaces of the right hand appear within normal limits. RAD/Hand Min 3 Views IMPRESSION: Stable old avulsion injury of the base of the first proximal phalanx unchanged in appearance from the previous study. Electronically Signed: Freddy Edgar MD at 17:07 EDT , Service support ,
== END ==
PROVIDERS: Family Provider Family Medicine; PCP Family Medicine; Referring Provider Physician Assistant; Visit Provider Physician Assistant
DX: S62.509A Fracture of unspecified phalanx of unspecified thumb, initial encounter for closed fracture (principal)
CPT/HCPCS: 73130

== ENCOUNTER 2018-12-19 13:44 | Emergency (ER) | payer MEDICARE, SELFPAY ==
[2018-10-18 15:44] VITALS: BMI 29.0
[2018-12-19 13:45] VITALS: BP 151/111; PULSE 105; RESP 22; TEMP 36.6; O2SAT 98; BMI 26.4
--- NOTE | 2018-12-19 14:31 | CT_ITS ---
STUDY: CT ABDOMEN AND PELVIS WITHOUT CONTRAST REASON FOR EXAM: Male, 38 years old. Abdominal pain radiating to right flank with nausea/vomiting/diarrhea x 4 days. RADIATION DOSAGE (If Supplied By Facility): CTDIvol = ( 11.02 ) mGy, DLP = ( 525.88 ) mGycm TECHNIQUE: Transaxial images were obtained from the dome of the diaphragm to the symphysis pubis without oral contrast, and without intravenous contrast. Sagittal and coronal images were reconstructed. Individualized dose optimization techniques were used for this CT. COMPARISON: CT abdomen and pelvis without contrast August 20, 2017. FINDINGS: The visualized lung bases are unremarkable. The visualized portions of the heart are within normal limits. Elongated right lobe of the liver is 20.5 cm in height. The portal vein diameter is 14.5 mm. There is non-visualization of the gallbladder, which may be secondary to either contraction or a prior cholecystectomy. The diameter of the common bile duct is 7 mm. Upper normal size spleen, measuring 12.35 x 4.7 x 12.35 cm. Normal pancreas. Normal right adrenal gland. Minor left adrenal hypertrophy is unchanged. Stable, mildly irregular 6 mm nonobstructing stone of the lower pole of the right kidney. Possible 1 mm stone in a nearby calyx as well. There is a 1-2 mm stable nonobstructing stone in the upper pole of the left kidney. No hydronephrosis. Normal visualized stomach. Normal small intestine. Normal colon. The appendix is visualized and appears normal. There is stable mild atherosclerotic calcification of the abdominal aorta and proximal iliac arteries, without a demonstrated aneurysm. Normal inferior vena cava. Incidental note of retroaortic left renal vein. Normal retroperitoneum. Normal urinary bladder. Normal visualized prostate gland. There are stable fixation clips and shelly of probable prior herniorrhaphy along the right inguinal ligament. There are degenerative changes of the lower thoracic and lower lumbar spine. CT/Abdomen/Pelvis without Cont IMPRESSION: 1. Stable bilateral nonobstructing nephrolithiasis. No hydronephrosis. 2. Prior right inguinal herniorrhaphy and cholecystectomy. 3. Borderline hepatosplenomegaly. 4. Stable mild aortoiliac atherosclerotic calcific plaquing.. Electronically Signed: Anthony Breen MD at 15:55 EDT , Service support ,
[2018-12-19 15:12] LABS: Absolute Lymphocyte Count 1.96 X10^3/uL (0.83-4.51); Absolute Neutrophil Count 7.4 X10^3/uL (2.0-7.7); Basophil# 0.03 X10^3/uL; Basophil% 0.3 % (0-1); Eosinophil# 0.11 X10^3/uL; Eosinophils% 1.1 % (0-5); Hematocrit 43.7 % (40-54); Hemoglobin 15.7 g/dL (13.0-16.5); Lymphocyte # 1.96 X10^3/ul (4.0); Lymphocyte % 19.4 % (19-41); Mean Corp Hgb Conc 35.9 g/dL (32-36); Mean Corpuscular Hgb 31.1 pg (27.0-32.0); Mean Corpuscular Volume 86.5 fL (80-94); Monocyte# 0.58 X10^3/uL; Monocyte% 5.8 % (0-10); NRBC Flagged by Analyzer 0 % (0-5); Neutrophil # 7.35 X10^3/uL (2.7-7.7); Neutrophil % 72.9 % (47-70); Platelet Count 221 K/mm3 (150-450); RBC Distribution Width CV 13.2 % (11.6-14.6); RBC Distribution Width SD 41.5 fl (35.1-43.9); Red Blood Count 5.05 M/mm3 (4.6-6.2); White Blood Count 10.1 K/mm3 (4.4-11.0)
[2018-12-19] MEDS: 0.9% Normal Saline 1,000 ML 1000 ML IV ×2 (15:17→17:31)
[2018-12-19] MEDS: Ondansetron 4 MG/2 ML Vial IV (15:17)
[2018-12-19] MEDS: Morphine 4 MG/ML Syringe IV (15:17)
[2018-12-19 15:24] VITALS: BP 142/97; PULSE 88; RESP 18; O2SAT 98
[2018-12-19 15:29] LABS: ALB/GLOB Ratio 1.3 RATIO (0.9-2.4); AST(SGOT) 12 U/L (15-37); Alanine Aminotransfer ALT/SGPT 29 U/L (16-61); Albumin, Serum 4.3 g/dL (3.2-5.0); Alkaline Phosphatase 125 U/L (45-117); Anion Gap 8 (5-15); BUN 10 mg/dL (7-18); BUN/Creat Ratio 9.9 RATIO (10-20); Calcium,Total 8.9 mg/dL (8.5-10.1); Chloride 110 mmol/L (98-107); Creatinine, Serum 1.01 mg/dL (0.70-1.30); EST Glomerular Filtration Rate 87 mL/min (>60); Est Glom Filt Rate - Afr Amer 105 mL/min (>60); Estimated Creatinine Clearance 109.87 ml/min; Globulin 3.3 g/dL (2.2-4.2); Glucose 96 mg/dL (74-106); Lipase 97 U/L (73-393); Potassium 4.2 mmol/L (3.5-5.1); Protein, Total 7.6 g/dL (6.4-8.2); Sodium Level 137 mmol/L (136-145)
[2018-12-19] MEDS: HYDROmorphone 0.5 MG/0.5 ML SYRINGE IV ×2 (16:13→17:31)
[2018-12-19 16:39] LABS: Bacteria 0 SEEN /hpf (None Seen); Squamous Epithelial Cells - UA 0 SEEN /hpf (0-5)
--- NOTE | 2018-12-19 16:43 | ED.DCSUM_ITS ---
- ER Visit Summary Date of Service: 12/19/18 Chief Complaint: Abdominal pain History of Present Illness: The patient is a 38 M who presents with abdominal and flank pain that is been constant for the past 5 days. Patient describes the pain as sharp and stabbing. Patient states the pain starts in the periumbilical area and radiates around to his right flank. Patient admits to nausea and vomiting. Patient denies any hematemesis or coffee-ground emesis. Patient denies any diarrhea, melena, or hematochezia. Patient does admit to some dysuria. Patient states he feels like he is urinating marbles. Patient denies any hematuria. Patient also admits to some subjective chills and a headache. Physical Examination: Vital signs are stable except for mild tachycardia 105 and slightly elevated blood pressure 151/111. Patient is afebrile. Patient is in no acute distress. Oral mucosa is pink and moist. Neck is supple. Trachea is midline. There is no JVD noted. Heart was regular rate and rhythm. Lungs are clear and equal bilaterally. Abdomen is soft. Bowel sounds are normal. There is some right upper quadrant tenderness. There is some periumbilical tenderness. There is also right CVA tenderness. There is no rebound or guarding noted. Cranial nerves II through XII are intact. There are no focal motor or sensory deficits noted. Test Results: CT scan of the abdomen pelvis was obtained. There is nonobstructing nephrolithiasis bilaterally. There is no acute intra-abdominal process. CBC comprehensive metabolic profile were within normal limits. Emergency Department Course and Treatment: Patient was given IV fluids. Patient was given morphine initially. Patient was still complaining of pain. Patient was given a dose of Dilaudid. Patient was also given a repeat bolus of normal saline and a second dose of Dilaudid. Patient was advised of his lab and imaging findings. Patient was instructed to follow-up with his primary care physician in 3 to 5 days. Patient understood and was agreeable with plan. All questions were answered. Disposition: Discharge home Impression: Abdominal pain This note was generated with [employer] dictation software. It may contain incorrect words, spelling, and punctuation that were not noted in review of the chart prior to signing ED Disposition - Plan for ED Patient: Disposition: Home or Assisted Living Diagnosis: Abdominal pain Instructions: ABDOMINAL PAIN, Unkown Cause, (Male) Referrals: Ja Ashton MD [Primary Care Provider] - 3-5 Days
[2018-12-19 16:48] LABS: Color, Urine Yellow (Yellow); Glucose, Dipstick Normal (Normal); Ketone-Dipstick 15 mg/dl (Negative); Leukocyte Esterase-Dipstick 25 /ul (Negative); Nitrite-Dipstick Negative (Negative); Occult Blood-Urine Negative /ul (Negative); Protein-Dipstick 30 mg/dl (Negative); Urine Bilirubin Dipstick Negative (Negative); Urine Clarity Clear (Clear); Urine Urobilinogen 1 mg/dl (Normal)
[2018-12-19 16:56] LABS: Red Blood Cells-Urine 0-5 SEEN /hpf (0-5); White Blood Cells 0-5 SEEN /hpf (0-5)
[2018-12-19 16:57] LABS: Mucous, Urine 1+ /hpf (<or=2+)
[2018-12-19 17:31] VITALS: BP 137/95; PULSE 91; RESP 16; O2SAT 98
[2018-12-19 18:31] VITALS: BP 156/99; PULSE 88; RESP 16; O2SAT 99
== END 2018-12-19 18:33 | disposition home or self-care (01) ==
PROVIDERS: Emergency Provider Emergency Medicine; Family Provider Family Medicine; PCP Family Medicine
DX: R10.9 Unspecified abdominal pain (principal); N20.0 Calculus of kidney; R51 Headache; I10 Essential (primary) hypertension; K21.9 Gastro-esophageal reflux disease without esophagitis; F17.210 Nicotine dependence, cigarettes, uncomplicated; Z90.49 Acquired absence of other specified parts of digestive tract; F31.9 Bipolar disorder, unspecified; F43.10 Post-traumatic stress disorder, unspecified
CPT/HCPCS: 74176; 80053; 81001; 83690; 85025; 96361; 96374; 96375; 96376; 99284; J7030; A4216; J2405

== ENCOUNTER 2019-10-09 10:25 | Emergency (ER) | payer MEDICARE, SELFPAY ==
[2019-10-09 10:26] VITALS: BP 148/69; PULSE 116; RESP 20; TEMP 36.6; O2SAT 98; BMI 30.2
--- NOTE | 2019-10-09 10:33 | CT_ITS ---
STUDY: CT ABDOMEN AND PELVIS WITHOUT CONTRAST REASON FOR EXAM: Male, 39 years old. BL FLANK PAIN RADIATION DOSAGE (If Supplied By Facility): CTDIvol = ( 14.90 ) mGy, DLP = ( 785.34 ) mGycm TECHNIQUE: Transaxial images were obtained from the dome of the diaphragm to the symphysis pubis without oral contrast, and without intravenous contrast. Sagittal and coronal images were reconstructed. Individualized dose optimization techniques were used for this CT. COMPARISON: Comparison is made with prior study dated December 19, 2018. FINDINGS: The visualized lung bases are unremarkable. Minimal anterior pericardial thickening. Normal liver. The patient is status post cholecystectomy. Normal spleen. Normal pancreas. Normal bilateral adrenal glands. Several nonobstructive right intrarenal calculi. The largest measures 4.6 mm in the lower pole calyx. Nonobstructive 2 mm calculus in the upper pole calyx of the left kidney. There is a retroaortic left renal vein. Normal visualized stomach. Normal small intestine. There are multiple colonic diverticula consistent with diverticulosis. The appendix is visualized and appears normal. There is scattered atherosclerotic calcification of the abdominal aorta, without a demonstrated aneurysm. Normal inferior vena cava. Normal retroperitoneum. Normal urinary bladder. Prior right inguinal hernia repair with mesh. Focal prostatic calcification. There is a left-sided inguinal hernia containing adipose tissue. Normal osseous structures. CT/Abdomen/Pelvis without Cont IMPRESSION: Stable bilateral nonobstructive intrarenal calculi. Electronically Signed: Kofi Johnson, at 12:18 EDT , Service support ,
--- NOTE | 2019-10-09 10:51 | ED.DCSUM_ITS ---
History of Present Illness Chief Complaint: Flank Pain Informant: Patient Onset: Month(s) Current Severity: Moderate Maximum Severity: Moderate Narrative: Patient presents with moderate pain to the right flank that he is had for about a month he indicates he was seen through [facility] providers told he had a 5 mm kidney stone he is not very specific about details, he indicates he was to see urology those appointments were not coordinated with him so he never saw anyone he had intensification of the pain, he spoke with his outpatient providers and was told to come to the hospital, he has a prior history for kidney stone in the distant past he has PTSD he denies any other ailments Past Medical History - Allergies and Home Meds Allergies/Adverse Reactions: Allergies ciprofloxacin Allergy (Verified 10/09/19 10:26) unknown metronidazole [From Flagyl] Adverse Reaction (Verified 10/09/19 10:26) unknown Primary Care Physician: Ja Ashton MD [Primary Care Provider] - Past Medical History: - - Clues as above Surgical History: cholecystectomy, herniorrhaphy Smoking Status: Unknown if ever smoked - Family History Maternal Family History: Family History (Last Reviewed 01/14/18 @ 09:22 by Gina Kowalski) Aunt Colon cancer Father Diabetes Hypertension Mother High cholesterol Family History: Reports: No pertinent history Paternal Family History: Family History (Last Reviewed 01/14/18 @ 09:22 by Gina Kowalski) Aunt Colon cancer Father Diabetes Hypertension Mother High cholesterol Family History: Reports: Asthma, No pertinent history Sibling Family History: Family History (Last Reviewed 01/14/18 @ 09:22 by Gina Kowalski) Aunt Colon cancer Father Diabetes Hypertension Mother High cholesterol Family History: Reports: No pertinent history Review of Systems General: Denies: Chills, Fever, Sweats Eyes: Denies: Visual changes - bilaterally, Diplopia ENT: Denies: Rhinorrhea, Sore throat Cardiovascular: Denies: Chest pain, Palpitations Respiratory: Denies: Dyspnea, Cough, Dyspnea on exertion Gastrointestinal: Denies: Abdominal pain, Nausea, Vomiting, Diarrhea, Melena, Hematochezia Genitourinary: Denies: Dysuria, Hematuria, Frequency Musculoskeletal: Reports: Back pain. Denies: Extremity Pain Skin: Denies: Rash, Wounds Neurological: Denies: Headache, Weakness, Numbness Physical Exam Vital Signs/Narrative: Vital Signs Temp Pulse Resp BP Pulse Ox 10/09/19 10:26 98 F 116 H 20 H 148/69 H 98 General: Well nourished, Well developed, No Acute Distress Head: Normocephalic, Atraumatic Eyes: Perrl, EOMI ENT: Moist mucous membranes, No rhinorrhea Neck: Supple, Nontender Cardiovascular: Regular rate, Regular rhythm, No murmurs Respiratory: No distress, CTA bilaterally, Chest nontender Abdomen: Soft, Nontender, Nondistended, Normal bowel sounds Back: Nontender, Normal Inspection, CVA tenderness Extremities: Nontender, No edema Skin: Normal color, No rash Neurological: Alert, Oriented x3, Cranial nerves II-XII grossly intact, Normal Strength, Normal Sensation Psychological: Normal affect, Normal Mood Diagnostic/Tx/Re-eval - Medical Decision Making Patient at times the pain is bilateral flanks, right now it is more to the right flank his urinary bowel habits unremarkable no nausea or vomiting he denies any other or GI ailments at this time ED screening evaluation pain management CT The patient's ED screening evaluation including labs UA CT abdomen pelvis were all negative he does have intrarenal kidney stones there is no signs of obstruction appendix normal no other acute gross abnormalities I explained this to him of explained exact etiology of flank pain is unclear he will be discharged on Naprosyn and a follow-up with all of his outpatient providers for further management he understands and agrees that plan Home stable Right flank pain etiology unclear ED Disposition - Plan for ED Patient: Diagnosis: Flank pain Instructions: ED Flank Pain Uncertain Cause Prescriptions: Naproxen [Naprosyn] 500 mg PO BID PRN #20 tab Prescription Printed Referrals: Ja Ashton MD [Primary Care Provider] -
[2019-10-09] MEDS: morphine 8 MG/ML Syringe IV (11:18)
[2019-10-09] MEDS: Ondansetron 4 MG/2 ML Vial IV (11:18)
[2019-10-09] MEDS: Ketorolac 30 MG/ML Syringe IV (11:18)
[2019-10-09] MEDS: 0.9% Normal Saline 1,000 ML 250 ML IV (11:19)
[2019-10-09 11:33] LABS: Mucous, Urine 0 SEEN /hpf (<or=2+); Red Blood Cells-Urine 0 SEEN /hpf (0-5); Squamous Epithelial Cells - UA 0 SEEN /hpf (0-5)
[2019-10-09 11:37] LABS: Absolute Lymphocyte Count 1.59 X10^3/uL (0.83-4.51); Absolute Neutrophil Count 6.5 X10^3/uL (2.0-7.7); Basophil# 0.06 X10^3/uL; Basophil% 0.7 % (0-1); Color, Urine Straw (Yellow); Eosinophil# 0.23 X10^3/uL; Eosinophils% 2.6 % (0-5); Glucose, Dipstick Normal (Normal); Hematocrit 44.2 % (40-54); Hemoglobin 14.9 g/dL (13.0-16.5); Ketone-Dipstick Negative (Negative); Leukocyte Esterase-Dipstick Negative /ul (Negative); Lymphocyte # 1.59 X10^3/ul (4.0); Lymphocyte % 17.7 % (19-41); Mean Corp Hgb Conc 33.7 g/dL (32-36); Mean Corpuscular Hgb 30.7 pg (27.0-32.0); Mean Corpuscular Volume 90.9 fL (80-94); Mean Platelet Vol. 12.6 fl (6.2-12.0); Monocyte# 0.56 X10^3/uL; Monocyte% 6.3 % (0-10); NRBC Flagged by Analyzer 0 % (0-5); Neutrophil # 6.46 X10^3/uL (2.7-7.7); Nitrite-Dipstick Negative (Negative); Occult Blood-Urine Negative /ul (Negative); POSITIVE COUNT YES; Platelet Count 161 K/mm3 (150-450); Protein-Dipstick Negative (Negative); RBC Distribution Width CV 13.4 % (11.6-14.6); RBC Distribution Width SD 44.7 fl (35.1-43.9); Red Blood Count 4.86 M/mm3 (4.6-6.2); Urine Bilirubin Dipstick Negative (Negative); Urine Clarity Clear (Clear); Urine Urobilinogen Normal (Normal)
[2019-10-09 11:40] LABS: Differential Indicated SCAN CRITERIA MET
[2019-10-09 11:44] LABS: White Blood Cells 0-5 SEEN /hpf (0-5)
[2019-10-09 11:45] LABS: Bacteria RARE /hpf (None Seen)
[2019-10-09 11:51] LABS: Anion Gap 9 (5-15); BUN 9 mg/dL (7-18); BUN/Creat Ratio 9.3 RATIO (10-20); Calcium,Total 8.8 mg/dL (8.5-10.1); Chloride 107 mmol/L (98-107); Creatinine, Serum 0.97 mg/dL (0.70-1.30); EST Glomerular Filtration Rate 91 mL/min (>60); Est Glom Filt Rate - Afr Amer 110 mL/min (>60); Estimated Creatinine Clearance 116.52 ml/min; Glucose 100 mg/dL (74-106); Potassium 4.9 mmol/L (3.5-5.1); Sodium Level 136 mmol/L (136-145)
[2019-10-09] MEDS: Morphine 4 MG/ML Syringe IV (12:58)
[2019-10-09 13:01] VITALS: BP 187/96; PULSE 79; RESP 16; O2SAT 98
[2019-10-09 13:12] VITALS: BP 187/96; PULSE 85; RESP 16; O2SAT 97
== END 2019-10-09 13:13 | disposition home or self-care (01) ==
LOC: ED 11:42
PROVIDERS: Emergency Provider Emergency Medicine; PCP Family Medicine
DX: R10.9 Unspecified abdominal pain (principal); N20.0 Calculus of kidney; F43.10 Post-traumatic stress disorder, unspecified; Z82.49 Family history of ischemic heart disease and other diseases of the circulatory system; Z88.1 Allergy status to other antibiotic agents; Z90.49 Acquired absence of other specified parts of digestive tract
CPT/HCPCS: 74176; 80048; 81001; 85025; 96361; 96374; 96375; 96376; 99285; J7030; A4216; J2405

== ENCOUNTER 2020-05-21 09:26 | Emergency (ER) | payer MEDICARE, MEDICAID, SELFPAY ==
[2020-05-21 09:27] VITALS: BP 151/112; PULSE 110; RESP 24; TEMP 36.4; O2SAT 98; BMI 26.4
[2020-05-21 09:28] VITALS: BP 151/112; PULSE 110; RESP 24; TEMP 36.4; O2SAT 98
--- NOTE | 2020-05-21 09:40 | EKG12_ITS ---
Test Reason : CP Blood Pressure : / mmHG Vent. Rate : 100 BPM Atrial Rate : 100 BPM P-R Int : 128 ms QRS Dur : 098 ms QT Int : 358 ms P-R-T Axes : 080 089 061 degrees QTc Int : 461 ms Normal sinus rhythm Normal ECG Confirmed by RAYSA ALVES, MARY ([id number]), publications editor LEXI JACOBS ([id number]) on 05/25/2020 10:48:06 AM Referred By: KRISS Confirmed By:MARY TABARES MD
--- NOTE | 2020-05-21 09:42 | ED.DCSUM_ITS ---
History of Present Illness Chief Complaint: Chest Pain Informant: Patient Narrative: 39-year-old male presents to the emergency department for the evaluation of chest pain. Patient states that he has had a pain across the anterior chest under my chest plate that moves from the left side to the right side. He notes a cough. He states that the cough is now productive today. He notes that his upper abdomen and right side hurt because my kidneys are shutting down. When asked if he has any known lung conditions he states I have a lot of problems I am a disabled . He denies any fever. He endorses body aches. He states that his urine is thick. He states his stools are loose but not diarrhea. No sore throat. He does note rhinorrhea for 3+ weeks. He states that he has been tested several times for Covid and has been negative. He made an appointment with his family doctor today and they advised him to come to emergency. - Past Medical History (1) ADHD (attention deficit hyperactivity disorder) Status: Chronic (2) Anxiety disorder Status: Chronic (3) Benign essential HTN Status: Chronic (4) Bipolar disorder Status: Chronic (5) Cannabis-related disorder Status: Chronic Comment: cannabinoid hyperemetic syndrome (6) Chronic post-traumatic stress disorder Status: Chronic (7) Esophageal reflux Status: Chronic (8) Gilbert syndrome Status: Chronic (9) Nephrolithiasis Status: Chronic (10) IBS (irritable bowel syndrome) Status: Suspected Past Medical History - Allergies and Home Meds Allergies/Adverse Reactions: Allergies ciprofloxacin Allergy (Verified 05/21/20 09:26) unknown metronidazole [From Flagyl] Adverse Reaction (Verified 05/21/20 09:26) unknown Primary Care Physician: Ja Asthon MD [Primary Care Provider] - Surgical History: cholecystectomy, herniorrhaphy Lives: Spouse/ Significant Other Smoking Status: Current every day smoker - Family History Maternal Family History: Family History (Last Reviewed 01/14/18 @ 09:22 by Gina Kowalski) Aunt Colon cancer Father Diabetes Hypertension Mother High cholesterol Family History: Reports: No pertinent history Paternal Family History: Family History (Last Reviewed 01/14/18 @ 09:22 by Gina Kowalski) Aunt Colon cancer Father Diabetes Hypertension Mother High cholesterol Family History: Reports: Asthma, No pertinent history Sibling Family History: Family History (Last Reviewed 01/14/18 @ 09:22 by Gina Kowalski) Aunt Colon cancer Father Diabetes Hypertension Mother High cholesterol Family History: Reports: No pertinent history Review of Systems General: Reports: Malaise. Denies: Chills, Fever, Sweats Eyes: Denies: Visual changes - bilaterally, Diplopia ENT: Denies: Rhinorrhea, Sore throat Cardiovascular: Reports: Chest pain. Denies: Palpitations Respiratory: Reports: Dyspnea, Cough, Dyspnea on exertion Gastrointestinal: Reports: Abdominal pain, - - Loose stools with history of IBS. Denies: Nausea, Vomiting, Diarrhea, Melena, Hematochezia Genitourinary: Reports: - - Right flank pain and thick urine. Denies: Dysuria, Hematuria, Frequency Musculoskeletal: Reports: Myalgias. Denies: Back pain, Extremity Pain Skin: Denies: Rash, Wounds Neurological: Denies: Headache, Weakness, Numbness Physical Exam Vital Signs/Narrative: Vital Signs Temp Pulse Resp BP Pulse Ox 05/21/20 09:28 97.6 F L 110 H 24 H 151/112 H 98 05/21/20 09:27 97.6 F L 110 H 24 H 151/112 H 98 Inital Vital Signs reviewed: Yes General: Well nourished, Well developed, No Acute Distress Head: Normocephalic, Atraumatic Eyes: Perrl, EOMI ENT: Moist mucous membranes, No rhinorrhea Neck: Supple, Nontender Cardiovascular: Regular rate, No murmurs, Tachycardia Respiratory: No distress, Chest nontender, Rhonchi, Decreased Air Movement Abdomen: Soft, Nondistended, Normal bowel sounds, Tender Back: CVA tenderness Extremities: Nontender, No edema Skin: Normal color, No rash Neurological: Alert, Oriented x3, Cranial nerves II-XII grossly intact, Normal Strength, Normal Sensation Psychological: Normal affect, Normal Mood Diagnostic/Tx/Re-eval Clinical Impression(s) from Imaging Studies Chest CTA 05/21/20 10:53 IMPRESSION: Normal CTA chest examination, without a demonstrated pulmonary embolism or arterial dissection. Electronically Signed: Kofi Johnson MD at 12:10 EST , Service support , Laboratory Last Values WBC 9.7 K/mm3 (4.4-11.0) 05/21/20 10:15 RBC 5.16 M/mm3 (4.6-6.2) 05/21/20 10:15 Hgb 15.7 g/dL (13.0-16.5) 05/21/20 10:15 Hct 44.2 % (40-54) 05/21/20 10:15 MCV 85.7 fL (80-94) 05/21/20 10:15 MCH 30.4 pg (27.0-32.0) 05/21/20 10:15 MCHC 35.5 g/dL (32-36) 05/21/20 10:15 RDW Std Deviation 41.2 fl (35.1-43.9) 05/21/20 10:15 RDW Coeff of [place] 13.2 % (11.6-14.6) 05/21/20 10:15 Plt Count 288 K/mm3 (150-450) 05/21/20 10:15 MPV 11.2 fl (6.2-12.0) 05/21/20 10:15 Immature Gran % (Auto) 0.300 % (0.0-0.9) 05/21/20 10:15 Neut % (Auto) 71.0 % (47-70) H 05/21/20 10:15 Lymph % (Auto) 20.1 % (19-41) 05/21/20 10:15 [place] % (Auto) 7.7 % (0-10) 05/21/20 10:15 Eos % (Auto) 0.3 % (0-5) 05/21/20 10:15 Baso % (Auto) 0.6 % (0-1) 05/21/20 10:15 Absolute Neuts (auto) 6.9 X10^3/uL (2.0-7.7) 05/21/20 10:15 Absolute Lymphs (auto) 1.94 X10^3/uL (0.83-4.51) 05/21/20 10:15 Nucleated RBC % 0 % (0-5) 05/21/20 10:15 PT 12.9 SECONDS (11.7-14.9) 05/21/20 11:00 INR 1.0 05/21/20 11:00 APTT 25.1 Seconds (24.1-36.2) 05/21/20 11:00 Sodium 132 mmol/L (136-145) L 05/21/20 10:15 Potassium 4.1 mmol/L (3.5-5.1) 05/21/20 10:15 Chloride 106 mmol/L (98-107) 05/21/20 10:15 Carbon Dioxide 20.0 mmol/L (21.0-32.0) L 05/21/20 10:15 Anion Gap 6 (5-15) 05/21/20 10:15 BUN 7 mg/dL (7-18) 05/21/20 10:15 Creatinine 1.03 mg/dL (0.70-1.30) 05/21/20 10:15 Estim Creat Clear Calc 106.66 ml/min 05/21/20 10:15 Est GFR (MDRD) Af Amer 102 mL/min (>60) 05/21/20 10:15 Est GFR (MDRD) Non-Af 84 mL/min (>60) 05/21/20 10:15 BUN/Creatinine Ratio 6.8 RATIO (10-20) L 05/21/20 10:15 Glucose 104 mg/dL (74-106) 05/21/20 10:15 Lactic Acid 2.4 mmol/L (0.4-1.9) H* 05/21/20 11:00 Calcium 9.4 mg/dL (8.5-10.1) 05/21/20 10:15 Total Bilirubin 0.60 mg/dL (0.20-1.00) 05/21/20 10:15 AST 11 U/L (15-37) L 05/21/20 10:15 ALT 26 U/L (16-61) 05/21/20 10:15 Alkaline Phosphatase 109 U/L (45-117) 05/21/20 10:15 Total Creatine Kinase 98 U/L (39-308) 05/21/20 10:15 Troponin I < 0.015 ng/mL (<0.045) 05/21/20 10:15 Total Protein 8.0 g/dL (6.4-8.2) 05/21/20 10:15 Albumin 4.6 g/dL (3.2-5.0) 05/21/20 10:15 Globulin 3.4 g/dL (2.2-4.2) 05/21/20 10:15 Albumin/Globulin Ratio 1.4 RATIO (0.9-2.4) 05/21/20 10:15 Lipase 154 U/L (73-393) 05/21/20 10:15 Urine Color Yellow (Yellow) 05/21/20 12:50 Urine Clarity Clear (Clear) 05/21/20 12:50 Urine pH 8.0 (5.0 - 8.0) 05/21/20 12:50 Ur Specific [place] 1.010 (1.002-1.030) 05/21/20 12:50 Urine Protein Negative mg/dl (Negative) 05/21/20 12:50 Urine Glucose (UA) Normal mg/dl (Normal) 05/21/20 12:50 Urine Ketones 5 mg/dl (Negative) H 05/21/20 12:50 Urine Occult Blood Negative /ul (Negative) 05/21/20 12:50 Urine Nitrite Negative (Negative) 05/21/20 12:50 Urine Bilirubin Negative mg/dL (Negative) 05/21/20 12:50 Urine Urobilinogen Normal mg/dl (Normal) 05/21/20 12:50 Ur Leukocyte Esterase Negative /ul (Negative) 05/21/20 12:50 Urine RBC 0 SEEN /hpf (0-5) 05/21/20 12:50 Urine WBC 0 SEEN /hpf (0-5) 05/21/20 12:50 Ur Squamous Epith Cells 0 SEEN /hpf (0-5) 05/21/20 12:50 Urine Bacteria 0 SEEN /hpf (None Seen) 05/21/20 12:50 Urine Mucus 0 SEEN /hpf (<or=2+) 05/21/20 12:50 - EKG Initial EKG Interpretation: Sinus Rhythm - EKG demonstrates normal sinus rhythm at a rate of 100. No concerning features of ACS or ectopy noted. This is compared to 10/07/2016. - Medical Decision Making Patient's Covid test is positive. EKG is demonstrated no significant findings. Lactic acid still elevated at 2.4. Patient received IV fluids Toradol and Tylenol. Patient underwent CTA of his chest which was negative for PE or infiltrate. No effusions noted. Unfortunately his IV infiltrated. He will be given home care instructions for the contrast extravasation of the left arm. I do not believe the patient requires inpatient care for his COVID-19 at the current time. He is about 99 to 98% on room air. I will write for Zofran for nausea and some Decadron. One of his concerns was his kidneys failing and his creatinine is normal and his urine specimen is essentially normal. He has urinated multiple times after 2 L suggesting that he is well-hydrated kidney function is adequate. ED Disposition - Plan for ED Patient: Disposition: Home or Assisted Living Diagnosis: COVID-19, Chest pain Instructions: Coronavirus Disease 2019 (COVID-19): Caring for Yourself or Others, COVID-19: Lying in a Prone Position (Proning) Prescriptions: Dexamethasone [Decadron] 6 mg PO DAILY 5 Days #5 tab Prescription Printed Ondansetron [Zofran Odt] 4 mg PO Q6H PRN PRN #15 tab PRN Reason: Nausea Prescription Printed Referrals: Ja Ashton MD [Primary Care Provider] - As Needed
[2020-05-21 09:47] VITALS: BP 152/131; PULSE 100; RESP 22; O2SAT 99
[2020-05-21 10:26] LABS: Absolute Lymphocyte Count 1.94 X10^3/uL (0.83-4.51); Absolute Neutrophil Count 6.9 X10^3/uL (2.0-7.7); Basophil# 0.06 X10^3/uL; Basophil% 0.6 % (0-1); Eosinophil# 0.03 X10^3/uL; Eosinophils% 0.3 % (0-5); Hematocrit 44.2 % (40-54); Hemoglobin 15.7 g/dL (13.0-16.5); Lymphocyte # 1.94 X10^3/ul (4.0); Lymphocyte % 20.1 % (19-41); Mean Corp Hgb Conc 35.5 g/dL (32-36); Mean Corpuscular Hgb 30.4 pg (27.0-32.0); Mean Corpuscular Volume 85.7 fL (80-94); Mean Platelet Vol. 11.2 fl (6.2-12.0); Monocyte# 0.74 X10^3/uL; Monocyte% 7.7 % (0-10); NRBC Flagged by Analyzer 0 % (0-5); Neutrophil # 6.87 X10^3/uL (2.7-7.7); Platelet Count 288 K/mm3 (150-450); RBC Distribution Width CV 13.2 % (11.6-14.6); RBC Distribution Width SD 41.2 fl (35.1-43.9); Red Blood Count 5.16 M/mm3 (4.6-6.2); White Blood Count 9.7 K/mm3 (4.4-11.0)
[2020-05-21 10:44] LABS: ALB/GLOB Ratio 1.4 RATIO (0.9-2.4); AST(SGOT) 11 U/L (15-37); Alanine Aminotransfer ALT/SGPT 26 U/L (16-61); Albumin, Serum 4.6 g/dL (3.2-5.0); Alkaline Phosphatase 109 U/L (45-117); Anion Gap 6 (5-15); BUN 7 mg/dL (7-18); BUN/Creat Ratio 6.8 RATIO (10-20); CPK Total, Creatine Kinase 98 U/L (39-308); Calcium,Total 9.4 mg/dL (8.5-10.1); Chloride 106 mmol/L (98-107); Creatinine, Serum 1.03 mg/dL (0.70-1.30); EST Glomerular Filtration Rate 84 mL/min (>60); Est Glom Filt Rate - Afr Amer 102 mL/min (>60); Estimated Creatinine Clearance 106.66 ml/min; Globulin 3.4 g/dL (2.2-4.2); Glucose 104 mg/dL (74-106); Lipase 154 U/L (73-393); Potassium 4.1 mmol/L (3.5-5.1); Sodium Level 132 mmol/L (136-145)
--- NOTE | 2020-05-21 10:53 | CT_ITS ---
STUDY: CTA CHEST REASON FOR EXAM: Male, 39 years old. CHEST PAIN AND WHEEZE. RADIATION DOSAGE (If Supplied By Facility): CTDIvol = ( 12.28 ) mGy, DLP = ( 866.78 ) mGycm TECHNIQUE: The examination was performed with the intravenous administration of IV 100mL Isovue-370. Post-processing of the angiographic images was performed, with multiplanar reformation and 3D reconstruction. Individualized dose optimization techniques were used for this CT. COMPARISON: None. FINDINGS: Normal enhancement of the main pulmonary artery and right and left pulmonary arteries. Normal enhancement of the bilateral peripheral pulmonary arteries. There is no demonstrated pulmonary embolism. Normal thoracic aorta and visualized great vessels. There is no demonstrated aortic dissection. Normal heart and pericardium. Normal mediastinum. Normal hilar regions. Normal visualized trachea and bronchi. The lungs are well expanded. Normal pulmonary parenchyma. Normal pleura. Normal chest wall structures. Normal osseous structures. Normal visualized upper abdomen. CT/CTA Chest W/WO Contrast IMPRESSION: Normal CTA chest examination, without a demonstrated pulmonary embolism or arterial dissection. Electronically Signed: Kofi Johnson MD at 12:10 EST , Service support ,
[2020-05-21] MEDS: 0.9% Normal Saline 1,000 ML 999 ML IV ×2 (11:10→11:56)
[2020-05-21] MEDS: Ketorolac 30 MG/ML Syringe IV (11:10)
[2020-05-21 11:25] LABS: Prothrombin Time (Protime)PT. 12.9 SECONDS (11.7-14.9)
[2020-05-21 11:30] LABS: Partial Thromboplast Time 25.1 Seconds (24.1-36.2)
[2020-05-21 11:46] LABS: Lactic Acid 2.4 mmol/L (0.4-1.9)
[2020-05-21 12:58] LABS: Bacteria 0 SEEN /hpf (None Seen); Mucous, Urine 0 SEEN /hpf (<or=2+); Red Blood Cells-Urine 0 SEEN /hpf (0-5); Squamous Epithelial Cells - UA 0 SEEN /hpf (0-5); White Blood Cells 0 SEEN /hpf (0-5)
[2020-05-21 13:05] LABS: Color, Urine Yellow (Yellow); Glucose, Dipstick Normal (Normal); Ketone-Dipstick 5 mg/dl (Negative); Leukocyte Esterase-Dipstick Negative /ul (Negative); Nitrite-Dipstick Negative (Negative); Occult Blood-Urine Negative /ul (Negative); Protein-Dipstick Negative (Negative); Urine Bilirubin Dipstick Negative (Negative); Urine Clarity Clear (Clear); Urine Urobilinogen Normal (Normal)
[2020-05-21] MEDS: Acetaminophen 500 MG Tablet 1000 MG PO (13:24)
[2020-05-21 13:30] VITALS: RESP 18; TEMP 36.7; O2SAT 98
[2020-05-21 13:33] VITALS: BP 134/97; PULSE 91; RESP 20; O2SAT 96
[2020-05-21 15:09] LABS: Reflex Lactate? Y
== END 2020-05-21 13:57 | disposition home or self-care (01) ==
PROVIDERS: Emergency Provider Emergency Medicine; PCP Family Medicine
DX: U07.1 COVID-19 (principal); R07.9 Chest pain, unspecified; I10 Essential (primary) hypertension; K21.9 Gastro-esophageal reflux disease without esophagitis; F31.9 Bipolar disorder, unspecified; F43.12 Post-traumatic stress disorder, chronic; F90.9 Attention-deficit hyperactivity disorder, unspecified type; F41.9 Anxiety disorder, unspecified; F17.200 Nicotine dependence, unspecified, uncomplicated; Z82.49 Family history of ischemic heart disease and other diseases of the circulatory system; Z83.3 Family history of diabetes mellitus; Z83.49 Family history of other endocrine, nutritional and metabolic diseases; Z90.49 Acquired absence of other specified parts of digestive tract; Z88.1 Allergy status to other antibiotic agents; Z79.899 Other long term (current) drug therapy
CPT/HCPCS: 71275; 80053; 81001; 82550; 83605; 83690; 84484; 85025; 85610; 85730; 87040; 87086; 87426; 87804; 93005; 96361; 96374; 99285; J7030; Q9967; A4216

== ENCOUNTER 2021-02-02 08:28 | Day surgery (SDC) | payer MEDICARE, MEDICAID, SELFPAY ==
[2021-02-02] VITALS (8 sets, daily range): BP systolic 98–140; BP diastolic 61–94; PULSE 63–81; RESP 16; TEMP 36–36.9; O2SAT 9–99; BMI 24.8
--- NOTE | 2021-02-02 | EGD_PTH ---
PATIENT: CAS SANCHEZ LOC: EN U#:[id number] AGE/SX: 40/M ROOM: RE02/02/[address]: Dr. Blake Dailey DO : 1980 BED: DIS: 02/02/2021 SPEC #: [id number] RECD: 02/02/21 14:17 STATUS: LIAN RENatan #: [id number] SELINA: 02/02/21 00:[address]: Blake Dailey DEPT: SURGICAL PATHOLOGY RECD BY: Kris Lott ENTERED: 02/03/21 08:55 SP TYPE: EGD BIOPSY OT DR: Dr. Ja Ashton MD Tissues: A - Gastric mucous membrane B - Esophageal mucous membrane Procedures: Special Stain Group II Surgery Specimen Level IV Alcian Blue/PAS (control) HEADER OPERATION: EGD ([facility]) PRE-OP DIAGNOSIS: Abdominal pain, nausea and vomiting TISSUE SUBMITTED: A ? Biopsy of duodenum, B ? Biopsy of distal esophagus MICROSCOPIC DIAGNOSIS A. Duodenum, biopsy: Fragments of duodenal mucosa with mild congestion, hemorrhage and Jose gland hyperplasia. B. Distal esophagus, biopsy: Fragments of gastroesophageal mucosa with chronic inflammation. Intestinal metaplasia (goblet cell metaplasia) is not identified. See comment. CHARAN:beatris 02/04/2021 COMMENT B. Alcian blue/PAS stain with matched control is used in the evaluation of the specimen. MICROSCOPIC DESCRIPTION Slides are reviewed. GROSS DESCRIPTION A - Received in fixative is one container labeled with the patient's name and designated biopsy of duodenum. The specimen consists of multiple irregular fragments of light go soft tissue that in aggregate measure 1 x 0.5 x 0.1 cm. The specimen is totally submitted in one cassette. B - Received in fixative is one container labeled with the patient's name and designated biopsy of distal esophagus. The specimen consists of multiple irregular fragments of light go soft tissue that in aggregate measure 0.7 x 0.3 x 0.1 cm. The specimen is totally submitted in one cassette. / CHARAN:beatris 02/03/21 TC:3 CPT: 10327 x2, 72123
[2021-02-02] MEDS: Lactated Ringers 1,000 ML 100 ML IV (08:40)
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
--- NOTE | 2021-02-02 10:35 | OP.EGD_ITS ---
Patient Name: Jony Carrington Procedure Date: 02/02/2021 9:51 AM Date of : 1980 Age: 40 Procedure: Upper GI endoscopy Indications: Epigastric abdominal pain Providers: Blake Dailey DO Referring MD: Ja Ashton Medicines: Propofol per Anesthesia Patient Profile: This is a 40 year old male. Refer to note in patient chart for documentation of history and physical. Patient has symptoms of acute abdominal cramping and chronic nausea. The symptoms first began November. Complications: No immediate complications. Procedure: Pre-Anesthesia Assessment: - Prior to the procedure, a History and Physical was performed, and patient medications and allergies were reviewed. The patient is competent. The risks and benefits of the procedure and the sedation options and risks were discussed with the patient. All questions were answered and informed consent was obtained. Patient identification and proposed procedure were verified by the physician in the pre-procedure area. Mental Status Examination: normal. Airway Examination: normal oropharyngeal airway and neck mobility. Respiratory Examination: clear to auscultation. CV Examination: normal. Prophylactic Antibiotics: The patient does not require prophylactic antibiotics. Prior Anticoagulants: The patient has taken no previous anticoagulant or antiplatelet agents. ASA Grade Assessment: II - A patient with mild systemic disease. After reviewing the risks and benefits, the patient was deemed in satisfactory condition to undergo the procedure. The anesthesia plan was to use moderate sedation / analgesia (conscious sedation). Immediately prior to administration of medications, the patient was re-assessed for adequacy to receive sedatives. The heart rate, respiratory rate, oxygen saturations, blood pressure, adequacy of pulmonary ventilation, and response to care were monitored throughout the procedure. The physical status of the patient was re-assessed after the procedure. After obtaining informed consent, the endoscope was passed under direct vision. Throughout the procedure, the patient's blood pressure, pulse, and oxygen saturations were monitored continuously. The Endoscope was introduced through the mouth, and advanced to the second part of duodenum. The upper GI endoscopy was accomplished without difficulty. The patient tolerated the procedure well. Moderate Sedation: Moderate (conscious) sedation was administered by the endoscopy nurse and supervised by the endoscopist. The patient's oxygen saturation, heart rate, blood pressure and response to care were monitored. Scope In: 10:15:57 AM Scope Out: 10:21:56 AM Total Procedure Duration Time 0 hours 5 minutes 59 seconds Findings: LA Grade A (one or more mucosal breaks less than 5 mm, not extending between tops of 2 mucosal folds) esophagitis with no bleeding was found. Biopsies were taken with a cold forceps for histology. Verification of patient identification for the specimen was done. Estimated blood loss was minimal. The entire examined stomach was normal. Patchy mildly erythematous mucosa without active bleeding and with no stigmata of bleeding was found in the first portion of the duodenum. Impression: - LA Grade A reflux esophagitis. Biopsied. - Normal stomach. - Erythematous duodenopathy. Recommendation: - Discharge patient to home. - Resume previous diet. - Continue present medications. - Await pathology results. - Repeat upper endoscopy in 1 year for surveillance based on pathology results. - Return to GI office in 2 weeks. Procedure Code(s): --- Professional --- 42426, Esophagogastroduodenoscopy, flexible, transoral; with biopsy, single or multiple CPT copyright 2017 [employer]. All rights reserved. The codes documented in this report are preliminary and upon senior data developer review may be revised to meet current compliance requirements. Blake Dailey DO 02/02/2021 10:34:52 AM This report has been signed electronically. Number of Addenda: 1 Note Initiated On: 02/02/2021 9:51 AM Addendum Number: 1 Addendum Date: 12/29/2021 4:20:57 PM MAC was used instead of moderate sedation for this patient. Blake Dailey DO 12/29/2021 4:21:04 PM This report has been signed electronically.
--- NOTE | 2021-02-02 10:35 | OP.CCLET_ITS ---
12/29/2021 Ja Ashton Re : Upper GI endoscopy procedure for Jony Carrington Dear Daisha This procedure was performed on Tuesday, February 02, 2021. My impressions and recommendations are as follows: Impressions : - LA Grade A reflux esophagitis. Biopsied. - Normal stomach. - Erythematous duodenopathy. Recommendations : - Discharge patient to home. - Resume previous diet. - Continue present medications. - Await pathology results. - Repeat upper endoscopy in 1 year for surveillance based on pathology results. - Return to GI office in 2 weeks. My findings are described in the full procedure note, which is enclosed. If I can be of further assistance, please feel free to contact me at . Sincerely, Blake Dailey, 02/02/2021 10:34:52 AM This report has been signed electronically.
== END 2021-02-02 12:07 ==
LOC: EN 08:28 → AC 08:29
PROVIDERS: PCP Family Medicine; Referring Provider Family Medicine; Visit Provider Internal Medicine Gastroenterology
PROC: 0DJ08ZZ Inspection of Upper Intestinal Tract, Via Natural or Artificial Opening Endoscopic (ICD-10-PCS; CPT 43235; principal; 2021-02-02 09:25)
DX: K21.00 Gastro-esophageal reflux disease with esophagitis, without bleeding (principal); K31.89 Other diseases of stomach and duodenum; F43.10 Post-traumatic stress disorder, unspecified; F12.90 Cannabis use, unspecified, uncomplicated; F17.200 Nicotine dependence, unspecified, uncomplicated; F32.A Depression, unspecified
CPT/HCPCS: 43239; 88305; 88313; J7120; J2405

== ENCOUNTER 2021-03-03 07:21 | Day surgery (SDC) | payer MEDICARE, MEDICAID, SELFPAY ==
[2021-03-03] VITALS (7 sets, daily range): BP systolic 94–132; BP diastolic 55–99; PULSE 55–79; RESP 16–18; TEMP 36.2–37.1; O2SAT 94–100; BMI 23.2
[2021-03-03] MEDS: Lactated Ringers 1,000 ML 15 ML IV (07:45)
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
--- NOTE | 2021-03-03 09:15 | COLBX_PTH ---
PATIENT: CAS SANCHEZ LOC: EN U#:[id number] AGE/SX: 40/M ROOM: RE03/03/[address]: Dr. Blake Dailey DO : 1980 BED: DIS: 03/03/2021 SPEC #: [id number] RECD: 03/03/21 10:54 STATUS: LIAN MATTANatan #: [id number] SELINA: 03/03/21 09:[address]: Blake Dailey DEPT: SURGICAL PATHOLOGY RECD BY: Louisa Rodriguez ENTERED: 03/03/21 12:16 SP TYPE: COLON BX OTHR DR: Dr. Ja Ashton MD Tissues: A - Transverse colon B - Ileum, NOS C - COLON BIOPSY D - COLON BIOPSY E - Sigmoid colon biopsy Procedures: Surgery Specimen Level IV HEADER OPERATION: Colonoscopy (MAC) PRE-OP DIAGNOSIS: History colonic polyps, abdominal pain, nausea and vomiting TISSUE SUBMITTED: A ? Transverse colon polyp, B ? Terminal ileum, C ? Random colon biopsy, D ? Splenic flexure polyp biopsy and polyp with snare, E ? Sigmoid polyp with snare x5 MICROSCOPIC DIAGNOSIS A. Transverse colon polyp, biopsy: Fragments of tubular adenoma. B. Terminal ileum, biopsy: Fragments of small intestinal mucosa, no pathologic diagnosis. C. Colon, random biopsy: Fragments of colonic mucosa, no pathologic diagnosis. D. Splenic flexure polyp biopsy and polyp snare: Fragments of tubular adenoma. E. Sigmoid polyp with snare: Fragments of hyperplastic polyp. SJ:beatris 03/04/2021 MICROSCOPIC DESCRIPTION Slides are reviewed. GROSS DESCRIPTION A - Received in fixative is one container labeled with the patient's name and designated transverse colon polyp. The specimen consists of multiple irregular fragments of light go soft tissue that in aggregate measure 0.8 x 0.3 x 0.2 cm. The specimen is totally submitted in one cassette. B - Received in fixative is one container labeled with the patient's name and designated terminal ileum biopsy. The specimen consists of two irregular fragments of light go soft tissue that in aggregate measure 0.6 x 0.3 x 0.1 cm. The specimen is totally submitted in one cassette. C - Received in fixative is one container labeled with the patient's name and designated random colon biopsy. The specimen consists of multiple irregular fragments of light go soft tissue that in aggregate measure 2.5 x 0.6 x 0.1 cm. The specimen is totally submitted in one cassette. D - Received in fixative is one container labeled with the patient's name and designated splenic flexure polyp biopsy and polyp with snare. The specimen consists of two irregular fragments of light go soft tissue measuring 0.5 x 0.5 x 0.3 cm and 0.3 x 0.3 x 0.1. The specimen is totally submitted in one cassette. E - Received in fixative is one container labeled with the patient's name and designated sigmoid polyp with snare. The specimen consists of multiple polypoid fragments of go-pink soft tissue that in aggregate measure 1.5 x 1.5 x 0.4 cm. The specimen is totally submitted in one cassette. / SJ:rg 03/03/21 TC:1 CPT: 55217 x5
--- NOTE | 2021-03-03 10:20 | OP.COLON_ITS ---
Patient Name: Jony Carrington Procedure Date: 03/03/2021 8:36 AM Date of : 1980 Age: 40 Procedure: Colonoscopy Indications: Generalized abdominal pain, Chronic diarrhea Providers: Blake Dailey DO Referring MD: Ja Ashton Medicines: See the Anesthesia note for documentation of the administered medications Patient Profile: This is a 40 year old male. Refer to note in patient chart for documentation of history and physical. He is status post EGD (normal) within the past month. Last Colonoscopy: none. The patient's first colonoscopy is today. Complications: No immediate complications. Procedure: Pre-Anesthesia Assessment: - Prior to the procedure, a History and Physical was performed, and patient medications and allergies were reviewed. The patient is competent. The risks and benefits of the procedure and the sedation options and risks were discussed with the patient. All questions were answered and informed consent was obtained. Patient identification and proposed procedure were verified by the physician in the pre-procedure area. Mental Status Examination: alert and oriented. Airway Examination: normal oropharyngeal airway and neck mobility. Respiratory Examination: clear to auscultation. CV Examination: normal. Prophylactic Antibiotics: The patient does not require prophylactic antibiotics. Prior Anticoagulants: The patient has taken no previous anticoagulant or antiplatelet agents. After reviewing the risks and benefits, the patient was deemed in satisfactory condition to undergo the procedure. The anesthesia plan was to use moderate sedation / analgesia (conscious sedation). Immediately prior to administration of medications, the patient was re-assessed for adequacy to receive sedatives. The heart rate, respiratory rate, oxygen saturations, blood pressure, adequacy of pulmonary ventilation, and response to care were monitored throughout the procedure. The physical status of the patient was re-assessed after the procedure. After I obtained informed consent, the scope was passed under direct vision. Throughout the procedure, the patient's blood pressure, pulse, and oxygen saturations were monitored continuously. The Colonoscope was introduced through the anus and advanced to the terminal ileum. The terminal ileum, ileocecal valve, appendiceal orifice, and rectum were photographed. Moderate Sedation: Moderate (conscious) sedation was administered by the endoscopy nurse and supervised by the endoscopist. The patient's oxygen saturation, heart rate, blood pressure and response to care were monitored. Total physician intraservice time was 15 minutes. Scope In: 9:45:20 AM Scope Withdrawal Time 0 hours 22 minutes 17 seconds Scope Out: 10:11:45 AM Total Procedure Duration Time 0 hours 26 minutes 25 seconds Findings: The perianal and digital rectal examinations were normal. Nine sessile polyps were found in the sigmoid colon, splenic flexure and transverse colon. The polyps were 1 to 2 mm in size. These polyps were removed with a hot snare. Resection and retrieval were complete. Verification of patient identification for the specimen was done. Estimated blood loss was minimal. Impression: - Nine 1 to 2 mm polyps in the sigmoid colon, at the splenic flexure and in the transverse colon, removed with a hot snare. Resected and retrieved. - Moderate diverticulosis in the sigmoid colon. There was no evidence of diverticular bleeding. There was narrowing of the colon in association with the diverticular opening. There was evidence of diverticular spasm. Erythema was seen in association with the diverticular opening. Chary-diverticular erythema was seen. - The entire examined colon is normal on direct and retroflexion views. - Biopsies were taken with a cold forceps from the entire colon for evaluation of microscopic colitis. - Biopsies were taken with a cold forceps for histology in the entire colon. Recommendation: - Discharge patient to home. - Continue present medications. - Repeat colonoscopy in 1 year for surveillance of multiple polyps. - Return to GI office in 2 weeks. Procedure Code(s): --- Professional --- 11778, 59, Colonoscopy, flexible; with removal of tumor(s), polyp(s), or other lesion(s) by snare technique G0500, Moderate sedation services provided by the same physician or other qualified health career guidance counselor performing a gastrointestinal endoscopic service that sedation supports, requiring the presence of an independent trained observer to assist in the monitoring of the patient's level of consciousness and physiological status; initial 15 minutes of intra-service time; patient age 5 years or older (additional time may be reported with 03991, as appropriate) Diagnosis Code(s): --- Professional --- D12.5, Benign neoplasm of sigmoid colon D12.3, Benign neoplasm of transverse colon (hepatic flexure or splenic flexure) R10.84, Generalized abdominal pain K52.9, Noninfective gastroenteritis and colitis, unspecified K57.30, Diverticulosis of large intestine without perforation or abscess without bleeding CPT copyright 2017 [employer]. All rights reserved. The codes documented in this report are preliminary and upon editor managing newspaper review may be revised to meet current compliance requirements. Blake Dailey DO 03/03/2021 10:19:51 AM This report has been signed electronically. Number of Addenda: 1 Note Initiated On: 03/03/2021 8:36 AM Addendum Number: 1 Addendum Date: 12/30/2021 6:12:34 AM MAC was used instead of moderate sedation for this patient. Blake Dailey DO 12/30/2021 6:12:40 AM This report has been signed electronically.
--- NOTE | 2021-03-03 10:20 | OP.CCLET_ITS ---
12/30/2021 Ja Ashton Re : Colonoscopy procedure for Jony Carrington Dear Daisha This procedure was performed on February. My impressions and recommendations are as follows: Impressions : - Nine 1 to 2 mm polyps in the sigmoid colon, at the splenic flexure and in the transverse colon, removed with a hot snare. Resected and retrieved. - Moderate diverticulosis in the sigmoid colon. There was no evidence of diverticular bleeding. There was narrowing of the colon in association with the diverticular opening. There was evidence of diverticular spasm. Erythema was seen in association with the diverticular opening. Chary-diverticular erythema was seen. - The entire examined colon is normal on direct and retroflexion views. - Biopsies were taken with a cold forceps from the entire colon for evaluation of microscopic colitis. - Biopsies were taken with a cold forceps for histology in the entire colon. Recommendations : - Discharge patient to home. - Continue present medications. - Repeat colonoscopy in 1 year for surveillance of multiple polyps. - Return to GI office in 2 weeks. My findings are described in the full procedure note, which is enclosed. If I can be of further assistance, please feel free to contact me at . Sincerely, Blake Dailey, 03/03/2021 10:19:51 AM This report has been signed electronically.
--- NOTE | 2021-03-03 10:53 | SUR.PHASEII ---
This nurse called Photographic Reproduction TechnicianValeria after patient requests to speak to counseling or gain resources for the patient's anxiety. Valeria to send Photographic Reproduction Technician Aarti down to speak with patient and give recourses.
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
== END 2021-03-03 12:20 | disposition home or self-care (01) ==
LOC: EN 07:24 → AC 07:25
PROVIDERS: PCP Family Medicine; Referring Provider Family Medicine; Visit Provider Internal Medicine Gastroenterology
PROC: 0DJD8ZZ Inspection of Lower Intestinal Tract, Via Natural or Artificial Opening Endoscopic (ICD-10-PCS; CPT 45378; principal; 2021-03-03 09:10)
DX: D12.5 Benign neoplasm of sigmoid colon (principal); D12.3 Benign neoplasm of transverse colon; K52.9 Noninfective gastroenteritis and colitis, unspecified; K57.30 Diverticulosis of large intestine without perforation or abscess without bleeding; R10.84 Generalized abdominal pain; F90.9 Attention-deficit hyperactivity disorder, unspecified type; F31.9 Bipolar disorder, unspecified; F43.10 Post-traumatic stress disorder, unspecified; F17.210 Nicotine dependence, cigarettes, uncomplicated; Z86.010 Personal history of colon polyps; Z86.16 Personal history of COVID-19
CPT/HCPCS: 45385; 88305; J7120

== ENCOUNTER 2021-03-28 09:18 | Outpatient (RCR) | payer MEDICARE, MEDICAID, SELFPAY ==
--- NOTE | 2021-03-28 09:04 | BH.SGPN.GN ---
Behaviors/Verbalizations/Mental Status: []Eye contact is fair, looking down for much of session. Motor activity is appropriate. Appearance is casual, hygiene tended to. Speech is Appropriate. Mood is depressed and anxious. Affect is constricted. Thoughts are linear and logical. No evidence of psychosis. Reviewed daily check in sheet and no reports of suicidal ideations or intent. Client Response/Progress/Benefit: []Pt new to IOP tx on this date. Attentive as fellow participants shared and nodded in connection throughout. Pt shared I'm struggling with a lot of anxiety and depression; however elected not to further disclose with the group as he would first like to get more acquainted and comfortable in the group setting prior to opening up more. Appeared to benefit from supportive environment. Recommended continued IOP treatment to improve healthy coping repertoire, reduce depression and anxiety, as well as provide additional support. Narrative Note: []
--- NOTE | 2021-03-28 09:27 | BH.COMM_ITS ---
Communication Note - Communication with Client Communication Note: Met with patient to complete initial paperwork for IOP. No significant changes since pre-admission screening. Has appt with outpatient psychiatrist tomorrow. 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 Pt reports that he has been on Depakote for 3 years and could not recall ever having a level. Worried about his kidneys as well. Completed [place] Suicide Screening. Reports fleeting SI (almost daily. lasting seconds to hours) with no intent in the past 4 weeks. Has thought about methods (hanging) in the past. No hx of attempts. Last occurrence of intent was 2-3 months ago. Protective factors are his children. Primary trigger to SI is medical issues surrounding his stomach. Reports long-standing SI over the past several months which has actually decreased in intensity in the last month. Future-oriented. Case discussed with Dr. Luque with plan to admit to IOP with dx of Bipolar, Depressed. F31.4
--- NOTE | 2021-03-28 10:10 | BH.SGPN.GN ---
Behaviors/Verbalizations/Mental Status: []Client alert and oriented, casually dressed and groomed. Eye contact fair. Motor activity restless AEB fidgeting. Speech within normal limits. Affect congruent, mood anxious. Thoughts linear, logical, no signs of hallucinations or delusions. Client Response/Progress/Benefit: []Client responded well to session AEB contributing to session and listening attentively to others. Client connected with the topic of making change and discussed how change can provide hope. Client discussed enjoying change, but worrying about his ability to maintain the change. Client participated in the emotion pictionary activity, and was able to relate how each emotion could be experienced in relation to change. Client also participated in discussion regarding the stages of change and the feelings that accompany them. Client seemed to benefit from increasing awareness of stages of change and the range of emotions that come with making change.This is client?s first day of IOP treatment. Will continue IOP treatment to increase anxiety management skills and improve knowledge of healthy coping skills. Narrative Note: []
--- NOTE | 2021-03-28 11:10 | BH.SGPN.GN ---
Behaviors/Verbalizations/Mental Status: []Client alert and oriented, neatly dressed and groomed. Eye contact good. Motor activity appropriate. Speech within normal limits. Affect congruent-tearful at times, mood anxious and depressed. Thoughts linear, no signs of hallucinations or delusions. Client Response/Progress/Benefit: []Client first day in IOP tx and responded well to session, attentive and contributing. Did well to process activity and work with group to relate the barriers and strategies used to overcome the barriers to managing change in own life. Client reported the activity was ?the first time in months I didn?t feel anxious.? Client identified a change he would like to make as reducing isolation and increase exercise. Client reports belief he is in the preparation stage as he is willing to make this change, but worries about motivation to follow through. Client plans to ask his sons to throw a baseball with him a couple times a week. Appeared to benefit from connecting with peers and gaining hope. Client will continue IOP tx to prevent decompensation, gain healthy coping skills, and improve daily functioning. Narrative Note: []
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
--- NOTE | 2021-03-28 14:07 | BH.MTP ---
[facility] - Patient Information Program Physician:: Dr. Ara Romo Primary Therapist:: Courtney STINSON - Psychiatric Diagnoses Psychiatric Diagnoses:: Bipolar 1 disorder, most recent episode depressed, severe without psychosis (F 31.4); PTSD; Social anxiety disorder; Cannabis use disorder; Irritable bowel syndrome, cannabinoid hyperemesis history, hypertension Diagnosis Code(s):: F 31.4 - Estimated LOS Estimated LOS (in weeks):: 6 Problem/Goal #1 - Problem/Goal #1 Stated Goal:: Client will reduce depressive symptoms, worthlessness and hopelessness, and fleeting suicidal ideations due to most recent depressive episode. Description of Barriers: Client has complex trauma that is unresolved and significantly impacts client's mental health and functioning. Client has health issues that could impact attendance and ability to participate. Client has had limited counseling in the past. Functional Impact: Client is a 40 year-old male with a history of bipolar disorder, PTSD, and social anxiety disorder. Client has a history of 6 previous psychiatric admissions with the most recent being at [facility] in 2013. Client was referred to [facility] after a social work consultation at the dermatology nurse practitioner. At admission to [facility], client was reporting decompensation for the past several months. Client endorses daily crying spells, a depressed mood, significant social anxiety, poor sleep, poor appetite, low energy and motivation, anhedonia, worthlessness, and hopelessness. Client admits to fleeting passive suicidal ideations, but denies any active suicidal ideations, plan, or intent. Client reports racing thoughts, panic attacks, and inability to function due to anxiety. Client has significant history of trauma, medical complications, and current substance use to help with his stomach issues. Client's symptoms are significantly impacting his overall functioning and wellbeing. Goal Relevant Strengths/Supports: Client is motivated, open-minded, and engaged in his treatment. - Objectives Objective #1 Stated Objective: Client will learn and utilize 2-3 healthy coping strategies to better manage depressive symptoms as shown by a reduced DSM-5 scores for depression. Interventions: Through group and individual sessions, therapist will help client identify triggers and warning signs of depression and emotional dysregulation including emotional, physical, and behavioral changes. Therapist will teach client various coping skills to manage her symptoms and give client tangible resources to use to regulate emotions. Therapist will use cognitive restructuring techniques and help client gain awareness of negative thoughts that reinforce guilt and depression. Therapist will provide psychoeducation on maintenance cycles and help client learn ways to break unhealthy maintenance cycles. Therapist will help client incorporate behavioral activation and assist client in setting SMART goals. Discharge Criteria: Client will have met this goal when he can report learning and using at least 2 coping skills to manage depressive symptoms. Additionally, client will have met this goal when his depressive symptoms have reduced on the DSM-5 scale. Target Date: 05/09/21 Review Date: 04/25/21 Status: open Objective #2 Stated Objective: Client will reduce depression and feelings of being hopelessness by accomplishing 1-2 small goals a week. Interventions: Through group and individual sessions, client will learn how to set small SMART goals to promote mood stability. Therapist will teach client the different kinds of self-care as well as the benefits of self-care. Therapist will help client problem-solve barriers and identify ways to increase accountability. Discharge Criteria: Client will have accomplished this goal when can report accomplishing at least one small goal a week. Target Date: 05/09/21 Review Date: 04/25/21 Status: open Problem/Goal #2 - Problem/Goal #2 Stated Goal:: Client will reduce anxiety, PTSD symptoms, and rumination while increasing ability to function on daily basis. Description of Barriers: Client has complex trauma that is unresolved and significantly impacts client's mental health and functioning. Client has health issues that could impact attendance and ability to participate. Client has had limited counseling in the past. Functional Impact: Client is a 40 year-old male with a history of bipolar disorder, PTSD, and social anxiety disorder. Client has a history of 6 previous psychiatric admissions with the most recent being at [facility] in 2013. Client was referred to [facility] after a social work consultation at the dermatology nurse practitioner. At admission to [facility], client was reporting decompensation for the past several months. Client endorses daily crying spells, a depressed mood, significant social anxiety, poor sleep, poor appetite, low energy and motivation, anhedonia, worthlessness, and hopelessness. Client admits to fleeting passive suicidal ideations, but denies any active suicidal ideations, plan, or intent. Client reports racing thoughts, panic attacks, and inability to function due to anxiety. Client has significant history of trauma, medical complications, and current substance use to help with his stomach issues. Client's symptoms are significantly impacting his overall functioning and wellbeing. Goal Relevant Strengths/Supports: Client is motivated, open-minded, and engaged in his treatment. - Objectives Objective #1 Stated Objective: Client will be able to explain common stress reactions and symptoms related to trauma and learn 2-3 coping skills to manage symptoms. Interventions: Therapist will provide education on trauma and explain impact trauma can have on physical and mental health. Will help client explore personal symptoms and warning signs of stress and trauma. Therapist will teach client coping skills to improve emotional regulation, mindfulness, and distress tolerance. Discharge Criteria: Client will have met this objective when can identify common stress reactions to trauma and report using at least 2 coping skills to manage symptoms. Target Date: 05/09/21 Review Date: 04/25/21 Status: open Objective #2 Stated Objective: Client will identify 2-3 anxiety triggers and 2 coping skills to use when feeling anxious to manage anxiety as shown by preventing decompensation on the DSM-5 for anxiety. Interventions: Therapist will provide education on anxiety, avoidance behaviors, and maintenance cycles. Therapist will help client explore personal symptoms and warning signs of anxiety. Therapist will teach client coping skills to improve emotional regulation, mindfulness, and distress tolerance to help client cope with anxiety in the moment. Discharge Criteria: Client will have accomplished this goal when he can identify at least 2 triggers and report using 2 coping skills to manage anxiety. Additionally, client will have accomplished this goal if he can prevent decompensation on the DSM-5 for anxiety. Target Date: 05/09/20 Review Date: 04/25/21 Status: open
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
== END 2021-03-29 23:59 ==
LOC: BHIOP 09:18
PROVIDERS: PCP Family Medicine; Referring Provider Psychiatry & Neurology Psychiatry; Visit Provider Psychiatry & Neurology Psychiatry
DX: F31.4 Bipolar disorder, current episode depressed, severe, without psychotic features (principal); R45.851 Suicidal ideations; Z79.899 Other long term (current) drug therapy; F43.10 Post-traumatic stress disorder, unspecified; F41.8 Other specified anxiety disorders; F12.90 Cannabis use, unspecified, uncomplicated; K58.9 Irritable bowel syndrome, unspecified; I10 Essential (primary) hypertension
CPT/HCPCS: S9480; 90832; 90853

== ENCOUNTER 2021-03-30 09:00 | Outpatient (RCR) | payer MEDICARE, MEDICAID, SELFPAY ==
--- NOTE | 2021-03-30 09:00 | BH.SGPN.GN ---
Behaviors/Verbalizations/Mental Status: [] Eye contact is good. Motor activity is appropriate. Appearance is disheveled. Speech is Appropriate. Mood is depressed. Affect is flat. Thoughts are linear and logical. No evidence of psychosis. Reviewed daily check in sheet and no reports of suicidal ideations or intent. Client Response/Progress/Benefit: [] Pt participated at times during group discussion. Attentive. Mental health wins are I'm here. Shared that he is very anxious as the psychiatrist developed a plan for him to titrate off two long-term medications. While nervous he is hopeful as those medication may have led to stomach issues. Yesterday was his first day in IOP and he shared that he believes that this program will be helpful. Made several statements that he is motivated to work on his depression and mental health I'll do whatever it takes to feel better. Progress noted per pt report. Benefited from group support, encouragement, and feedback. Will continue in IOP to maintain safety, medication management, and to improve functioning. Narrative Note: []
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
[2021-03-30 09:35] VITALS: BP 159/94; PULSE 84
--- NOTE | 2021-03-30 10:12 | BH.SGPN.GN ---
Behaviors/Verbalizations/Mental Status: []Eye contact is fair to good. Motor activity is appropriate, at times bouncing leg when appearing anxious. Appearance is casual and grooming attended to. Speech is Appropriate. Mood is anxious and depressed. Affect is congruent. Thoughts are linear and logical. No evidence of psychosis Client Response/Progress/Benefit: []Pt was an engaged participant in group discussion, providing input and was attentive during psychoeducation. Participated in short activity about automatic thoughts and shared that mood, current mental health state, and past experiences can impact automatic thoughts. Group was primarily educational; therapist introduced and gave examples of the most common cognitive distortions. Benefited from education and increased awareness of cognitive distortions and the role that they play our behaviors and emotions. Pt reported connecting with distortions such as emotional reasoning, all or nothing thinking, overgeneralizing, and mental filter. Pt shared personal distortion he struggles with as ?I feel like an idiot so it must be true?. Recognized the impact this distortion has had on his own self-esteem. Will continue IOP tx to challenge distortions that reinforce depression and anxiety while increasing ability to function, and reducing avoidance. Narrative Note: []
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
--- NOTE | 2021-03-30 12:47 | BH.DR.ITP ---
Initial Treatment Plan Patient Information Visit Information: ADMISSION DATE: EXPECTED LOS: 4-6 weeks Problems/Symptoms Problem #1:: Erratic moods with depression Symptom:: Sadness, crying, low motivation, isolation, hopelessness, worthlessness, guilt, low energy, decreased concentration, fleeting suicidal ideation in the recent past, passive thoughts of Problem #2:: Anxiety Symptom:: Worry, panic attacks, racing thoughts, rumination, flashbacks, reexperiencing, avoidance
--- NOTE | 2021-04-06 09:03 | BH.SGPN.GN ---
Behaviors/Verbalizations/Mental Status: []Client alert and oriented, casually dressed and groomed. Eye contact good. Motor activity appropriate. Speech within normal limits. Affect flat, mood anxious and depressed. Thoughts linear, logical, no signs of hallucinations or delusions. Reviewed client?s symptom tracker, no risk for suicidal ideation, plan, or intent as of 04/06/21 Client Response/Progress/Benefit: []Client responded well to session, attentive and engaged. Client reports feeling anxious but more clear-headed this morning. Client shared that he is slowly getting back to himself as the medication changes have significantly helped and he has been going out into the [place] to reduce racing thoughts. Client continues to feel anxious and shared that he has been trembling so bad. Client recently had to go to the ER with his son, so he has been feeling anxious and tired from that stressor. Client reports using affirmations to help manage stressors. Appeared to benefit from connecting with peers. Will continue IOP tx to prevent decompensation, increase knowledge of healthy coping skills, and improve daily functioning. Narrative Note: []
--- NOTE | 2021-04-06 12:12 | PCM.BH.PN ---
Progress Note Progress Note: History of Present Illness/Interim History: [] The patient is a 40-year-old male who is seen in follow-up at the [facility] behavioral health IOP program. I last saw the patient 1 week ago and we started a wean and taper off of Depakote and Tegretol over 1 week. In order to relieve him of his severe nausea, vomiting and stomach pain and weight loss. Patient discontinued the Tegretol 2 days ago and he has been off the Depakote for 2 days also. He has tolerated the weaning well except he is a little more anxious and feels that he has occasional tremors in his hands. He has increased his Klonopin to 1 mg gram twice a day which he is allowed to take on the current prescription. He feels that he has tolerated the Seroquel well and is taking 200 mg p.o. at bedtime. He feels that stopping the former meds and adding the Seroquel has completely resolved his gastrointestinal symptoms. His appetite is much better and he is eating much better and he may even be stabilizing his weight or even gaining some back now. So he feels that his gastrointestinal symptoms were definitely due to one of the prior medications. He remains though very anxious as always and is having daily panic attacks still. His sleep is improved on the Seroquel also. He still remains depressed and has some worthlessness and guilt but does not feel hopeless any longer as he feels better physically. He denies any suicidal ideation, passive thoughts of , plan for suicide, homicidal ideation, hallucinations or delusions. He denies any manic symptoms recently. He does still have severe PTSD and lots of triggers which can trigger his symptoms and trigger him into a crying episode. Patient complains of some mild restless leg symptoms at night since weaning the other meds and since starting the Seroquel. Current Psychiatric Medications: [] Patient discontinued Tegretol and Depakote 1 or 2 days ago. He is currently on Klonopin 1 mg p.o. twice a day. He is also on Seroquel 200 mg p.o. nightly (x1 week now). Mental Status Examination: [] The patient is a 40-year-old male seen wearing a mask due to the pandemic who is casually dressed and groomed with good hygiene. He has normal gait and is ambulatory. He has no psychomotor agitation or retardation. No tremor is visible. Eye contact is good and speech is normal rate and rhythm and fluent with no pressure. Patient did not cry during the interview this time. Mood is depressed. Affect is constricted. Thought process is organized. And goal-directed. Thought content is significant for ruminative anxiety and depression. There is no evidence of passive thoughts of , suicidal ideation, plan for suicide, homicidal ideation, hallucinations or delusions. Judgment is intact. Insight is fair. Impulsivity is moderate. Diagnoses: [] 1. Bipolar 1 disorder, most recent episode depressed, severe without psychosis (F 31.4) 2. PTSD 3. Social anxiety disorder 4. History of cannabis use disorder 5. Irritable bowel syndrome, cannabinoids hyperemesis history, hypertension 6. History of exacerbation of GI symptoms by Tegretol or possibly Depakote 7. Restless leg syndrome 8. Primary support issues Plan: [] The patient will continue the IOP program at [facility] as the structure, support, education and group therapy will hopefully prevent worsening of the patient's symptoms which might require hospitalization. The patient felt safe during the interview and if it anytime he does not feel safe he will let us know or go to the emergency room. The risks, options, possible complications and side effects of the medications were discussed with the patient and understands and accepts these. The patient will continue to follow-up with his GI eye doctor and his new psychiatrist and I will see the patient in follow-up while in the IOP program. The patient will increase his Seroquel to 300 mg p.o. nightly and a prescription is given for this. In addition a prescription is given is a refill for his Klonopin 1 mg p.o. twice a day. In addition a prescription for gabapentin 300 mg p.o. nightly for RLS is given today. I will see the patient in follow-up in 1 to 2 weeks.
--- NOTE | 2021-04-06 15:40 | BH.MDN ---
Multi-Disciplinary Note - Note 30-min Individual Time Started:: 11:35 Date: 04/06/21 Purpose of session/treatment goals addressed:: To address current symptoms, stressors, and response to medication changes. Another goal was to increase self-awareness and discuss goals. Eye Contact:: Fair Motor Activity:: Appropriate Appearance:: Casual Speech:: Rambling Mood:: Anxious, Other - tired Affect:: Constricted Thoughts:: Circular, No evidence of hallucinations/delusions noted Staff Interventions:: thought challenging, CBT techniques, rapport building, strengths perspective, taught coping skills Client Response:: Client responded well to session, open to meeting with therapist. Client reports feeling much better since switching his medications. Client stated he has been able to eat and feels like he will be able to put back on weight. Client reports being tired today due to being in the ER late last night with his son. Client shared there are lots of stressors in his life right now, but he feels like he is coping better and he is trying to stay positive. Client appears to minimize stressors and when asked about this, client agreed. Client shared he struggles to ask for help and if he cannot solve something himself he shuts down and feels like a failure. Receptive to gentle thought challenging and discussion of using dialectical thinking to combat all or nothing expectations. Client stated he has taken a lot from IOP in the short period of time he has been in the program. Client reported that taking a moment to breath and think has helped him keep my emotions in check at home. Client shared coping is not easy at home and that there is some marital conflict. Client reports belief the best thing he can do right now is to control his emotions to keep the peace at home. Client encouraged to continue practicing coping skills discussed in group. Risks/Concerns:: Client denies any suicidal ideations, plan, or intent as of 04/06/21. Denies any HI. Progress Toward Goals/Plan:: Client is responding well to IOP tx AEB his engagement in groups and benefit from recent medication change. Client reports that stopping the former meds and adding the Seroquel has completely resolved his gastrointestinal symptoms. Client also reports improved sleep since getting on Seroquel. Client continues to endorse anxiety and has panic attacks still. Client also remains depressed and has some worthlessness and guilt, but client denies hopelessness now that his physical symptoms have improved. Client will continue IOP tx to increase knowledge of healthy coping skills, improve overall functioning, and prevent decompensation. Time Stopped:: 12:00
--- NOTE | 2021-04-07 09:07 | BH.SGPN.GN ---
Behaviors/Verbalizations/Mental Status: []Eye contact is good. Motor activity is appropriate. Appearance is casual. Speech is Appropriate. Mood is euthymic and hopeful. Affect is congruent. Thoughts are linear and logical. No evidence of psychosis. Reviewed daily check in sheet and no reports of suicidal ideations or intent. Client Response/Progress/Benefit: [] Pt responded well to session AEB pt listening attentively to others and sharing thoughts and feelings. Pt stated he accomplished his goals of getting outside and spending more time with his 12 year old. Pt reported he is trying to work on the goal of improving his home life by working on being a calm presence and not overreacting or making situations worse. Pt identified mental health positive as his gastrointenstional issues being completely resolved after a medication change. Pt reported additional positive as giving anxiety positive affirmations to a family member to use that seemed to help them. Pt stated current stressor is relationship with because there is constant fighting. Pt seemed to benefit from support from peers. Progress noted with pt reporting following through of goals and using skills outside treatment environment. Pt to continue IOP to increase healthy coping, challenge distorted thoughts and prevent decompensation. Narrative Note: []
--- NOTE | 2021-04-07 10:18 | BH.SGPN.GN ---
Behaviors/Verbalizations/Mental Status: []Client alert and oriented, casually dressed and groomed. Eye contact good. Motor activity appropriate, at times appearing restless AEB bouncing leg. Speech within normal limits. Affect congruent, mood anxious and depressed. Thoughts linear, logical, no signs of hallucinations or delusions.[] Client Response/Progress/Benefit: [] Pt was an attentive participant AEB taking notes and contributing throughout. Attentive during psychoeducation on Conflict Styles ( Avoidant, Competing, Accommodating, and Collaborating). Participated in interactive group discussion on benefits of conflict.? Pt noted that ?conflict is something really uncomfortable for me?. Pt along with peers identified several reasons conflict is often avoided which included; anxiety, fear of other?s reaction, not wanting to face additional conflict, and negative past experiences. Pt reported connecting most with the accommodating and competing conflict resolution styles depending on the setting. Discussed that this has resulted in increased conflict with others at times. Benefited from increased awareness on conflict styles. Will continue in IOP to promote application of anxiety management skills, reduce avoidance, and improve functioning. Narrative Note: []
--- NOTE | 2021-04-07 11:19 | BH.SGPN.GN ---
Behaviors/Verbalizations/Mental Status: []Client alert and oriented, casually dressed and groomed. Eye contact good. Motor activity appropriate, at times bouncing leg throughout discussion. Speech within normal limits. Affect congruent, mood anxious and depressed. Thoughts linear, logical, no signs of hallucinations or delusions. Client Response/Progress/Benefit: []Client engaged in session AEB actively participating in group activity and providing input during reflection exercise. Client did well to review own approach to conflict in the activity versus how he approaches conflict outside group environment. Client reports personal barriers to managing conflict are shutting down, racing thoughts, and poor emotion regulation. Client wants to work on better managing conflict by taking more of a cooperative approach to conflict, sharing that this may improve his relationships as well. Shared he can do so by challenging himself to slowing down and taking time to process before responding. Appeared to benefit from gaining strategies to help client better manage conflict. Will continue IOP tx to reduce distorted thoughts that reinforce depression and anxiety, improve self-care and communication with supports, as well as improve overall functioning. Narrative Note: []
--- NOTE | 2021-04-11 09:00 | BH.COMM ---
Communication Note - Communication with Client Communication Note: cancelled today due to COVID symptoms. Is going to urgent care to get evaluated and possibly tested.
--- NOTE | 2021-04-14 10:15 | BH.SGPN.GN ---
Behaviors/Verbalizations/Mental Status: []Client alert and oriented, casually dressed and groomed. Eye contact good. Motor activity appropriate. Speech within normal limits. Affect constricted, mood depressed and anxiety. Thoughts linear, logical, no signs of hallucinations or delusions. Client Response/Progress/Benefit: []Pt provided input in group discussion and was actively taking notes and listening throughout. Attentive during psychoeducation and provided insight on definition and benefits of self-care. Group identified self-care benefits to include; improves relationships, increases motivation, helps one be more engaged with others, improves physical health, and can improve productivity. Pt connected with the barriers to practicing self-care and reports feeling like he is ignoring responsibilities and guilt keeps pt from practicing self-care. Pt participated in activity aimed at identifying and challenging common self-care myths. Worked within small group to identify evidence challenging myths. Benefited from group by increasing awareness of benefits to self-care and consequences of neglecting self-care. Will continue in IOP to prevent decompensation, gain insight to PTSD symptoms, and learn skills to manage PTSD symptoms. Narrative Note: []
--- NOTE | 2021-04-14 11:15 | BH.SGPN.GN ---
Behaviors/Verbalizations/Mental Status: []Client alert and oriented, casually dressed and groomed. Eye contact good. Motor activity appropriate. Speech within normal limits. Affect constricted, mood depressed and anxious. Thoughts linear, logical, no signs of hallucinations or delusions. Client Response/Progress/Benefit: []Client engaged participant AEB client taking notes and providing input during discussion. Attentive throughout group discussion on the various areas of self-care and made connections during the activity. Client completed worksheet which identified current self-care practices and what self-care activities client wants to start using. Client selected psychological self-care as the area of self-care client would like to improve. Client plans to do this by unplugging from electrical devices more and talking with his individual therapist about stressors. Appeared to benefit from completing the self-care evaluation and gaining insights into current self-care practices, as well as identifying areas in which she would like to improve upon. Will continue IOP tx to increase awareness of PTSD symptoms, increase knowledge of healthy coping skills, and improve mood stability. Narrative Note: []
--- NOTE | 2021-04-14 15:53 | BH.MDN ---
Multi-Disciplinary Note - Note 45-min Individual Time Started:: 09:25 Date: 04/14/21 Purpose of session/treatment goals addressed:: To address current stressors, symptoms, and triggers. Another goal was to work on goal #2 of client's treatment plan. Eye Contact:: Fair Motor Activity:: Restless Appearance:: Casual Speech:: Tangential, Rapid Mood:: Anxious, Dysthymic Affect:: Congruent - tearful Thoughts:: Racing, Circular, No evidence of hallucinations/delusions noted Staff Interventions:: thought challenging, psychoeducation on: - PTSD and impacts of trauma, mindfulness skills, strengths perspective, other - Gave handout on PTSD Client Response:: Client responded well to session, open to meeting with therapist. Client appeared anxious as he was restless and speaking more rapidly than normal. Client was tearful throughout session and he shared he is really struggling today and I don't know why. Processed recent stressors including recent illness, his son getting into an accident last week, and ongoing family obligations and caretaking. Client stated. he has been having more flashbacks from his childhood and he constantly feels like I have to look over my shoulder. Client began to minimize his stressors and shared I'll be ok, I just need to get through...it will go away. Receptive to gentle thought challenging and encouragement to practice self-compassion. Therapist provided psychoeducation on PTSD and common stress responses to trauma. Client reported learning about this was helpful because he has been confused on why he is struggling. Client shared when he feels confused he blames himself and gets angry with himself. Client reported benefiting from challenging self-blame and gaining awareness. Client was provided a handout on PTSD that included potential causes, symptoms, triggers, and coping skills. Reviewed grounding skills such as breathing and 5-senses and client was encouraged to practice these before returning to group. Risks/Concerns:: Client's daily symptom tracker scores were 1/5 for thoughts of suicide and 1/5 for risk. Client denied that he had any active suicidal ideations, plan, or intent as of 04/14/21. Denies any HI. Future oriented and his family and braulio are his protective factors. Progress Toward Goals/Plan:: Client reports he is struggling this morning and he was more tearful in session than previous sessions. Client and his family have been sick which could be a contributing factor to his worsening depressive symptoms. Client reports the recent medication change has significantly improved his physical health. Client continues to endorse a depressed mood, anhedonia, constant anxiety, flashbacks, hyper vigilance, and re-experiencing. Client receptive to learning about PTSD and trauma and reported this was helpful. Will continue IOP tx to prevent decompensation, increase understanding of his PTSD, and gain healthy coping skills. Time Stopped:: 10:05
--- NOTE | 2021-04-19 09:00 | BH.SGPN.GN ---
Behaviors/Verbalizations/Mental Status: [] Eye contact is good. Motor activity is appropriate. Appearance is casual. Speech is Appropriate. Mood is anxious. Affect is congruent. Thoughts are linear and logical. No evidence of psychosis. Reviewed daily check-in tracker and no reports of suicidal ideations or intent. Client Response/Progress/Benefit: [] Pt was an active participant in group discussion. Attentive. Provided appropriate feedback. Daily symptom tracker notes 4/5 for anxiety and 3/5 for depression. Mental health wins include accomplishing goals and setting more realistic goals. Discussed how goal-setting in the past exacerbated his mental health. States that he had a great night yesterday as he spent it with support visiting [employer] light displays. Improved mood and decreased anxiety and irritability which has increased energy and motivation. Decreased isolation and increased clarity which he attributes to medication changes and utilizing skills. He continues to wake with anxiety at 4am which he reports is distressing however he is proud of progress overall and is not ruminating on this aspect. Progress noted per pt report. Benefited from group support, encouragement, and feedback. Will continue in IOP to prevent decompensation, maintain gains, and improve functioning. Narrative Note: []
--- NOTE | 2021-04-20 09:00 | BH.SGPN.GN ---
Behaviors/Verbalizations/Mental Status: [] Eye contact is good. Motor activity is appropriate. Appearance is casual. Speech is Appropriate. Mood is anxious. Affect is congruent. Thoughts are linear and logical. No evidence of psychosis. Reviewed daily check in sheet and pt reports 1/5 for suicidal thoughts and 0/5 for intent. This has been baseline. Client Response/Progress/Benefit: [] Pt was an active participant in group discussion. Attentive. Provided appropriate feedback. Daily symptom tracker notes 3/5 for depression and 4/5 for anxiety. Despite the high scores he reports feeling overall positive. Shared that he started an accomplishment journal and he has been tracking pretty much everything that happens throughout the day. He reports holiday stress which he believes he is managing appropriately. Progress noted per pt report. He reports that his children have noticed a positive improvement in him in the past weeks which makes him proud. Benefited from group support, encouragement, and feedback. Will continue in IOP to prevent decompensation, increase healthy coping, and improve daily functioning. Narrative Note: []
--- NOTE | 2021-04-20 10:07 | BH.SGPN.GN ---
Behaviors/Verbalizations/Mental Status: []Eye contact is good. Motor activity is appropriate. Appearance is casual. Speech is Appropriate, at times appearing to provide increased input due to anxiety. Mood is anxious and euthymic. Affect is congruent. Thoughts are linear and logical. No evidence of psychosis. Client Response/Progress/Benefit: []Pt was an active participant in group discussion and activity AEB taking notes and providing input throughout. On occasion did struggle with interrupting others. Did well to remain attentive during psychoeducation on factors that build resiliency and providing input throughout. Worked with peers to define resilience and shared thoughts that resilience is something that can continue to be developed throughout life. Pt engaged in discussion on benefits of resilience in promoting mental wellness. These included: improve self-confidence, feel more hopeful about the future, improve relationships, and better manage stress. Benefited from group by increasing awareness of mental health benefits of resilience. Additionally, connected with discussion introducing 10 factors that can help build personal resiliency. Pt identified currently practicing resiliency factor of ?accepting change as a part of living?, ?move towards your goals?, and ?self-awareness?, sharing this has been an ongoing practice to continue to improve upon these areas. Will continue in IOP to continue to improve anxiety management and mood stability, promote healthy coping skill application, and prevent decompensation. Narrative Note: []
--- NOTE | 2021-04-20 11:15 | BH.SGPN.GN ---
Behaviors/Verbalizations/Mental Status: []Client alert and oriented, casually dressed and groomed. Eye contact good. Motor activity appropriate. Speech tangential. Affect constricted, mood anxious. Thoughts linear, logical, no signs of hallucinations or delusions Client Response/Progress/Benefit: []Client responded well to session AEB contributing to discussion and completing the resilience worksheet provided. Client participated in the discussion of how each resiliency component can help increase personal resiliency and worked cooperatively with group to identify strategies to enhance each of the components discussed. Client identifying doing well with the resilience components of accepting that change is a part of living and keeping things in perspective. Went on to reflect wanting to improve in the personal resilience component of self-awareness and avoiding seeing crises as insurmountable problems. Client stated he wants to work on this by challenging fortune telling distortions. Client seemed to benefit from discussing strategies for improving personal resilience. Will continue IOP tx to reduce intensity of PTSD symptoms, improve daily functioning, and gain healthy coping skills. Narrative Note: []
--- NOTE | 2021-04-20 12:21 | PCM.BH.PN_ITS ---
Progress Note Progress Note: And history of Present Illness/Interim History: [] Patient is a 40-year-old male who is seen in follow-up at the [facility] behavioral health IOP program. I last saw the patient 2 weeks ago and at that time his Seroquel dose was increased to 300 mg p.o. nightly. The patient is tolerating the Seroquel well and feels much better overall. He states that his mood is still depressed but but much improved over a month ago. His energy level is better and he is able to focus and concentrate better also. He is not isolating like he was before. His gastrointestinal issues and stomach pain remain resolved. He is having some restless leg syndromes which are less than they were before gabapentin was started 2 weeks ago but there is still some restless leg syndrome there. His sleep remains adequate on Seroquel. He denies hopelessness, suicidal ideation, passive thoughts of , plan for suicide, homicidal ideation, hallucinations or delusions. He denies any manic symptoms. Current Psychiatric Medications: [] He discontinued Tegretol and Depakote 1 month ago which resulted in his GI symptoms resolving. Current meds include Klonopin 1 mg p.o. twice a day; Seroquel 300 mg p.o. nightly (x2 weeks now); gabapentin 300 mg p.o. nightly for restless leg syndrome. Mental Status Examination: [] Patient is a 40-year-old male seen wearing a mask due to the pandemic. He is casually dressed and groomed with good hygiene. He has no psychomotor agitation or retardation. Eye contact is good and speech is normal rate and rhythm and fluent with no pressure. Mood is depressed but mildly. Affect is full and normal. Thought process is organized. And goal-directed. Thought content: There is no evidence of passive thoughts of , suicidal ideation, plan for suicide, homicidal ideation, hallucinations or delusions. Patient remains thrilled that his GI symptoms have resolved. Judgment is intact. Insight is fair and improving. Impulsivity is moderate. Diagnoses: [] 1. Bipolar 1 disorder, most recent episode depressed, severe without psychosis (F 31.4) 2. PTSD 3. Social anxiety disorder 4. History of cannabis use disorder 5. Irritable bowel syndrome, cannabinoid hyperemesis history and exacerbation of GI symptoms by prior medications 6. Restless leg syndrome 7. Primary support issues Plan: [] The patient will continue the IOP program at [facility] as the structure, support, education and group therapy will hopefully prevent w orsening of the patient's symptoms which might require hospitalization. The patient felt safe during the interview and if it anytime he does not feel safe he will let us know or go to the emergency room. The risks, options, possible complications and side effects of the medications were discussed with the patient and he understands and accepts these. The patient will continue on his current Seroquel dose of 300 mg p.o. nightly. He will increase his gabapentin to 400 mg p.o. nightly to help with his remaining RLS symptoms. He will continue to follow-up with his outpatient psychiatric and medical providers. Prescriptions were sent in for a Klonopin refill and the gabapentin dose change.
--- NOTE | 2021-04-20 15:06 | BH.MDN ---
Multi-Disciplinary Note - Note 45-min Individual Time Started:: 12:13 Date: 04/20/21 Purpose of session/treatment goals addressed:: To address current symptoms, stressors, and triggers. Another goal was to work on identifying and challenging distorted thought patterns. Eye Contact:: Fair Motor Activity:: Restless Appearance:: Casual Speech:: Rambling, Rapid Mood:: Euthymic Affect:: Constricted Thoughts:: Racing, Circular, No evidence of hallucinations/delusions noted Staff Interventions:: thought challenging - discussed strategies to combat catastrophizing thoughts., psychoeducation on: - self-care, CBT techniques, strengths perspective Client Response:: Client responded well to session, open to meeting with therapist. Client reports he is feeling positive this week, even though there are a lot of stressors going on in his life. Client stated he uses what he learns in IOP every day and his family notices positive change. Client reports he has been writing down accomplishments and using positive affirmations. Client shared he finds peers, IOP topics, and talking about his stressors beneficial. Client continues to struggle with identifying and managing his distorted thought patterns. Client learned about the different distortions and client shared he connects with catastrophizing, minimizing, and jumping to conclusions. Discussed ways to combat catastrophizing including looking at the facts at this moment. Client also is working on reducing minimizing by keeping track of his accomplishments and during session he practices catching himself when he minimizes emotions. Client encouraged to continue working on self-care this week and challenging negative thought patterns. Risks/Concerns:: Client denies any suicidal ideations, plan, or intent as of 04/20/21. Future oriented. Denies HI. Progress Toward Goals/Plan:: Client reports his mood is improving and over the past week his family has noticed positive changes which makes client feel proud. Client reports utilizing the coping skills he learns in IOP outside of group. Client reports the medication change was extremely helpful and client is able to put on weight now. Client's sleep has also improved since changing medication. Client continues to report severe anxiety, a depressed mood, racing thoughts, restless leg, and PTSD symptoms. Will continue IOP tx to promote mood stability, increase consistent use of healthy coping skills, and improve daily functioning. Time Stopped:: 12:53
--- NOTE | 2021-04-25 14:50 | BH.MTP_ITS ---
Treatment Plan Review Date of Admission:: 03/28/21 Date of Treatment Plan Review:: 04/25/21 Admitting Diagnoses:: Bipolar 1 disorder, most recent episode depressed, severe without psychosis (F 31.4); PTSD; Social anxiety disorder; Cannabis use disorder; Irritable bowel syndrome, cannabinoid hyperemesis history, hypertension Current Diagnoses:: Bipolar 1 disorder, most recent episode depressed, severe without psychosis (F 31.4); PTSD; Social anxiety disorder; Cannabis use disorder; Irritable bowel syndrome, cannabinoid hyperemesis history, hypertension Patient's Response to Treatment:: Client has responded well to treatment AEB client?s active engagement in group and his reduction of symptoms since admission (10% reduction). Per client?s DSM-5, depression has decreased by 14% and his scores for anxiety remain the same. Client self-reports that he is benefitting a lot from IOP as he is learning coping skills to manage his symptoms. However, client has had some inconsistent attendance due to family illness and emergencies which could impact client?s progress. Client is engaged and an active group member when he attends. Client self-reports his concentration has improved, his GI issues have resolved, and he is not isolating like he was. Status of Current Problems and Symptoms: Client reports ongoing issues with sleep, racing thoughts, PTSD triggers, ruminations, hyper-vigilance, and re- experiencing. Client continues to struggle with setting boundaries with toxic family members and prioritizing self-care. Problem #1 Problem Name:: Depression, fleeting SI, hopelessness, and worthlessness Status of Goals:: Objective 1- partially complete. Client?s DSM-5 scores have decreased by 14% since admission and he can identify multiple coping skills to h elp manage symptoms. However, client continues to struggle with implementing self-care and he often reports feeling exhausted due to caretaking for others. Objective 2- complete. Client reports increased motivation to accomplish tasks and he denies hopelessness. Team Recommendations:: Treatment team recommends that client continue working on these treatment goals. Encouraged to work on setting realistic goals, setting self-care goals, talking with healthy supports, and establishing aftercare. Problem #2 Problem Name:: PTSD, ruminations, and anxiety Status of Goals:: Objective 1- complete with ongoing work encouraged. Client has learned about PTSD and the common stress reactions as well as coping skills he can use to manage triggers. However, client has recently been exposed to trauma triggers which has been exacerbating his PTSD and anxiety. Objective 2-in progress. Client?s DSM-5 scores for anxiety remain the same since admission. Client can also report several coping skills to manage anxiety including 5- senses, affirmations, self-talk, breathing, and walking. Team Recommendations:: Treatment team encourages client to continue working on these treatment goals. Client has been encouraged to set boundaries with toxic family members to help manage PTSD symptoms and prevent further decompensation. Client could benefit from trauma therapy in the future when client is more stable.
--- NOTE | 2021-04-28 09:05 | BH.SGPN.GN ---
Behaviors/Verbalizations/Mental Status: [] Eye contact is good. Motor activity is appropriate. Appearance is casual. Speech is Appropriate. Mood is depressed/tired. Affect is flat. Thoughts are linear and logical. No evidence of psychosis. Reviewed daily check in sheet and no reports of suicidal ideations or intent. Client Response/Progress/Benefit: [] Pt was an active participant. Attentive. Provided appropriate feedback. Pt shared the events that caused him to miss several IOP sessions. Reports that he received a call on 04/21 that he dad was unresponsive and in the ICU which was the result of high sugars. He discussed other medical complications as well. He discussed how this has impacted his mental health and led to increase in anxiety and panic. Also reports several triggers related to his past conflict with his father. Despite this he reports that he utilized skills while managing this acute stressor and believes that overall he managed well. He is struggling with setting boundaries with family members as well as allowing time to rest and practice self-care. Insight that if he continues on this pace he might burnout. Able to identify that he is mind-reading and predicting the worse at times and it trying to challenge these thoughts. Reports that he benefited from coming to IOP today and venting. Group provided support, feedback, and offered feedback on boundary setting and importance of self-care. Progress noted per pt report. Plan is to continue in IOP to prevent decompensation, increase healthy coping, and improve functioning. Narrative Note: []
--- NOTE | 2021-04-28 10:10 | BH.SGPN.GN ---
Behaviors/Verbalizations/Mental Status: []Client alert and oriented, casually dressed and groomed. Eye contact good. Motor activity appropriate. Speech within normal limits. Affect flat, mood dysthymic and exhausted. Thoughts linear, logical, no signs of hallucinations or delusions. Client Response/Progress/Benefit: [] Pt was an active participant in group discussion and activity. Attentive during psychoeducation on what it means to take action. Group discussed barriers to taking action as well as what it takes to finally overcome the fear associated with change. Pt identified symptoms pt want to take gain control over which included fear of setting boundaries, fear of not following through, fear of gaining patience, and fear of anger.? Increased insight into what could be holding pt back from mental wellness and the importance of taking action on symptoms and obstacles rather than avoiding or ignoring. Will continue in IOP tx to prevent decompensation during increased time of stress due to father?s health. Narrative Note: []
--- NOTE | 2021-04-28 11:10 | BH.SGPN.GN ---
Behaviors/Verbalizations/Mental Status: []Client alert and oriented, casually dressed and groomed. Eye contact good. Motor activity appropriate. Speech within normal limits. Affect flat, mood exhausted. Thoughts linear, logical, no signs of hallucinations or delusions. Client Response/Progress/Benefit: []Client responded well to session, taking notes and participating in worksheet discussion. Client set a goal to gain control over aggression and irritability. Client plans to work on this by utilizing the G.L.A.D reflection skill in the mornings before client sees his family. Client reports he will need to set aside 20 minutes for himself and tell his about his goal to help accomplish this goal. Appeared to benefit from identifying a small goal to benefit mental health. Progress noted as client continues to report utilizing coping skills outside of IOP. However, client continues to experience numerous external stressors that are impacting his mental and physical health. Will continue IOP tx to prevent decompensation during time of increased stressors and increase healthy coping skills. Narrative Note: []
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
== END 2021-04-29 23:59 ==
LOC: BHIOP 09:00
PROVIDERS: PCP Family Medicine; Referring Provider Psychiatry & Neurology Psychiatry; Visit Provider Psychiatry & Neurology Psychiatry
DX: F31.4 Bipolar disorder, current episode depressed, severe, without psychotic features (principal); F43.10 Post-traumatic stress disorder, unspecified; F12.90 Cannabis use, unspecified, uncomplicated; K58.9 Irritable bowel syndrome, unspecified; G25.81 Restless legs syndrome; Z79.899 Other long term (current) drug therapy
CPT/HCPCS: S9480; 90832; 90834; 90853

== ENCOUNTER 2021-05-02 09:00 | Outpatient (RCR) | payer MEDICARE, MEDICAID, SELFPAY ==
--- NOTE | 2021-04-06 10:10 | BH.SGPN.GN ---
Behaviors/Verbalizations/Mental Status: []Client alert and oriented, casually dressed and groomed. Eye contact good. Motor activity restless. Speech within normal limits. Affect congruent, mood depressed and anxious. Thoughts linear, logical, no signs of hallucinations or delusions. Client Response/Progress/Benefit: []Pt engaged participant in group and actively participated in discussion on the benefits of effective communication on mental health which included; helps us set healthy boundaries, get needs met, improve overall mental health and quality of life, reduce stress, and make time for self-care. Expressed connecting with topic of communication as this is an area that he often struggles with in his own life. Pt along with peers able to identify ways that communication can be misinterpreted and the potential costs this can have on mental health and relationships. Pt shared ineffective communication often results in increasing his overall stress levels. Remained engaged and appeared to benefit from discussion on the various communication styles, as well as reviewing the importance of communicating effectively to improve mental wellness. Shared connecting most with passive communication, reporting he often becomes avoids or shuts down. Indicated this has negatively impacted his ability to get his needs met in the past. Will continue IOP tx to continue to improve mood stability and healthy communication with supports, promote improved anxiety management skills, as well as prevent decompensation. Narrative Note: []
[2021-04-30 00:36] VITALS: BP 159/94; PULSE 84
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
--- NOTE | 2021-05-04 09:00 | BH.SGPN.GN ---
Behaviors/Verbalizations/Mental Status: []Client alert and oriented, casually dressed and groomed. Eye contact good. Motor activity appropriate. Speech within normal limits. Affect congruent, mood anxious. Thoughts linear, logical, no signs of hallucinations or delusions. Reviewed client?s symptom tracker, no risk for suicidal ideation, plan, or intent as of 05/04/21 client Response/Progress/Benefit: Cu[]Client responded well to session, difficult to hear client at times, but he was attentive throughout. Client reports feeling uncertain this morning because of all the stressors that have been going on recently. Client shared he has been trying to learn from the uncertainty and he continues to use positive affirmations. Client shared he used positive affirmations last night before bed and this changed my mindset. Client acknowledged that his self-care has been lacking due to stressors, but also because of client's self-report of not setting boundaries with family. Client reports he benefits from IOP because it helps challenge his perspective and connect to others. Problems are ongoing and client will continue IOP tx to prevent further decompensation, improve emotional regulation skills, and increase self-care. Narrative Note: []
--- NOTE | 2021-05-04 11:05 | BH.SGPN.GN ---
This psychotherapy group was provided via telehealth using two-way, real-time interactive telecommunication technology between the patients and the provider. The interactive telecommunication technology included audio and video. The patient was offered telemedicine as an option for care delivery during the COVID-19 pandemic and consented to this option. Patient location: [place] Provider located at [facility] Behaviors/Verbalizations/Mental Status: [] Client alert and oriented, casually dressed and appropriately groomed. Eye contact good. Motor activity appropriate. Speech within normal limits, often difficult to hear client due to poor network connection. Affect congruent, mood anxious. Thoughts linear and intact. no signs of delusions or hallucinations. Client Response/Progress/Benefit: [] Client responded well to session AEB listening attentively to peers and providing input throughout. Client was attentive and contributed during psychoeducation on the different boundary styles. Client stated he tends to struggle with having really porous boundaries and has difficulties in saying ?no? to others. Client recognizes that this has made it difficult to follow through with doing things solely for himself. Participated in group discussion brainstorming various strategies for improving healthy personal boundaries. Client identified wanting to work on improving his ability to say ?no?, as well as challenging himself to set a boundary with himself and spend a few hours disconnected from technology each night. Progress noted in improved use of thought challenging and anxiety management skills, though continues to struggle in these areas. Will continue IOP tx to continue challenging negative thoughts, promote self-care and use of anxiety management skills, and prevent decompensation. Narrative Note: []
--- NOTE | 2021-05-05 09:00 | BH.SGPN.GN ---
Behaviors/Verbalizations/Mental Status: [] Eye contact is good. Motor activity is appropriate. Appearance is casual. Speech is Appropriate. Mood is euthymic. Affect is full. Thoughts are linear and logical. No evidence of psychosis. Reviewed daily check in sheet and no reports of suicidal ideations or intent. Client Response/Progress/Benefit: [] Pt participated at times. Attentive. Group discussion was on gaslighting in mental health. Mental health wins included feeling better. Reports that he as well as his family are recovering from COVID. Talked briefly about the stress related to being around family 20/11 and how he has managed this stress. Believes that his mental health is stabilizing this week from psychosocial and medical stressors from last week. He is utilized skills such as postive affirmations and he has developed some goals for himself for today and this weekend. Despite reported progress he reported his emotion for today is confused. Benefited from group support, encouragement, and feedback. Will continue in IOP to maintain safety, stabilize mood, and improve functioning. Narrative Note: This psychotherapy group was provided via telehealth using two-way, real-time interactive telecommunication technology between the patients and the provider. The interactive telecommunication technology included audio and video. The patient was offered telemedicine as an option for care delivery during the COVID-19 pandemic and consented to this option. Patient location: [place] Provider located at [facility] []
--- NOTE | 2021-05-10 09:36 | BH.COMM ---
Communication Note - Communication with Client Communication Note: Pt was virtual last week due to COVID positive test on 04/30/21. Reported improved symptoms was was scheduled to return today. Called in this AM with mild symptoms and will continue to stay at home. Will keep us updated.
--- NOTE | 2021-05-13 10:22 | BH.COMM ---
Communication Note - Communication with Client Communication Note: Was scheduled to return to group today however did not show.
--- NOTE | 2021-05-18 14:11 | BH.COMM ---
Communication Note - Communication with Client Communication Note: no call/ no show for today. Scheduled to see psychiatry
--- NOTE | 2021-05-19 07:03 | BH.DS_ITS ---
Discharge Summary - Demographics Date of Admission:: 03/28/21 Discharge Date: 05/19/21 Presenting Problems at Admission:: Client is a 40 year-old male with a history of bipolar disorder, PTSD, and social anxiety disorder. Client has a history of 6 previous psychiatric admissions with the most recent being at [facility] in 2013. Client was referred to [facility] after a social work consultation at the [facility]. At admission to [facility], client was reporting decompensation for the past several months. Client endorsed daily crying spells, a depressed mood, significant social anxiety, poor sleep, poor appetite, low energy and motivation, anhedonia, worthlessness, and hopelessness. Client had fleeting passive suicidal ideations, but denied any active suicidal ideations, plan, or intent. Client reported racing thoughts, panic attacks, and inability to function due to anxiety. Client has significant history of trauma, medical complications, and current substance use to help with his stomach issues. Client's symptoms were significantly impacting his overall functioning and wellbeing. Discharge Diagnoses:: Bipolar 1 disorder, most recent episode depressed, severe without psychosis (F 31.4); PTSD; Social anxiety disorder; Cannabis use disorder; Irritable bowel syndrome, cannabinoid hyperemesis history, hypertension Reason for Discharge:: Treatment team met to discuss client?s [facility] treatment and care. It was determined that client will be discharged from [facility] due to client's inability to adhere to the attendance policy and his self-report of difficulty making it to group due to feeling overwhelmed by ongoing family stressors. Client is welcome to return to [facility] in the future. - Treatment Progress During Treatment & Response: Client responded well to treatment for the first few weeks as client was engaged, had consistent attendance, and was reporting reduced symptoms. Client?s medications were changed within the first week of [facility] and this significantly improved his quality of life per his report. Client?s DSM-5 scores at treatment plan review showed a 10% reduction overall and a 14% reduction in depression. Around four weeks into the program, client began to experience numerous psychosocial stressors that began to impact client?s attendance and engagement in group. Client also was faced with several trauma triggers that led to worsening anxiety, sleep issues, and increased PTSD symptoms. Client struggled to set boundaries with family members and self- reported that he was putting his own mental health on the back-burner to help others. For additional information, see multidisciplinary note 05/03/21. Due to client?s limited attendance and self-report of feeling too overwhelmed to attend, it was determined he would discharge without completing the full IOP program. Issues Still to be Addressed:: Client made progress in some areas during IOP tx (see above), however, at time of discharge, client continued to report ongoing issues with sleep, racing thoughts, PTSD triggers, ruminations, hyper-vigilance, and re-experiencing. Client also continued to struggle with setting boundaries with toxic family members and prioritizing self-care when experiencing psychosocial stressors. Discharge Recommendations/Instructions:: Client plans to follow up with his outpatient geriatric psychiatrist, Elif Montoya, at [facility] but client's next appointment date is unknown. Client was also provided with information for additional community mental health resources to receive counseling. Client is interested in trauma therapy in the future. However, due to client's ongoing psychosocial stressors and difficulty with self-care, it is not recommended for client to get trauma therapy right now. Client had multiple cancelations and no shows prior to discharging and this therapist was out of the office due to COVID, which impacted the development of client's aftercare plan. Discharge Handout: Complete Discharge Handout with client on aftercare options and continuity of care.
== END 2021-05-19 15:00 | disposition home or self-care (01) ==
LOC: BHIOP 09:00
PROVIDERS: PCP Family Medicine; Referring Provider Psychiatry & Neurology Psychiatry; Visit Provider Psychiatry & Neurology Psychiatry
DX: F31.4 Bipolar disorder, current episode depressed, severe, without psychotic features (principal); F12.99 Cannabis use, unspecified with unspecified cannabis-induced disorder; F43.10 Post-traumatic stress disorder, unspecified; F41.8 Other specified anxiety disorders; K58.9 Irritable bowel syndrome, unspecified; I10 Essential (primary) hypertension
CPT/HCPCS: S9480; 90834; 90853

== ENCOUNTER 2021-09-09 16:34 | Inpatient (IN) | payer MEDICARE, SELFPAY ==
[2021-09-09 16:35] VITALS: BP 132/112; PULSE 128; RESP 20; TEMP 36.2; O2SAT 95; BMI 21.1
[2021-09-09 17:26] LABS: Absolute Lymphocyte Count 0.77 X10^3/uL (0.83-4.51); Absolute Neutrophil Count 29.6 X10^3/uL (2.0-7.7); Basophil# 0.06 X10^3/uL; Basophil% 0.2 % (0-1); Hematocrit 50.7 % (40-54); Hemoglobin 17.5 g/dL (13.0-16.5); Lymphocyte # 0.77 X10^3/ul (0.83-4.51); Lymphocyte % 2.4 % (19-41); Mean Corp Hgb Conc 34.5 g/dL (32-36); Mean Corpuscular Hgb 29.7 pg (27.0-32.0); Mean Corpuscular Volume 86.1 fL (80-94); Mean Platelet Vol. 12.6 fl (6.2-12.0); Monocyte# 1.11 X10^3/uL; Monocyte% 3.5 % (0-10); NRBC Flagged by Analyzer 0 % (0-5); Neutrophil # 29.58 X10^3/uL (2.7-7.7); Neutrophil % 93.1 % (47-70); POSITIVE COUNT YES; POSITIVE DIFFERENTIAL YES; Platelet Count 348 K/mm3 (150-450); RBC Distribution Width CV 13.8 % (11.6-14.6); RBC Distribution Width SD 43.4 fl (35.1-43.9); Red Blood Count 5.89 M/mm3 (4.6-6.2)
[2021-09-09 17:43] LABS: Differential Indicated SCAN CRITERIA MET; White Blood Count 31.8 K/mm3 (4.4-11.0)
[2021-09-09 17:49] VITALS: BP 144/121; PULSE 142; RESP 25; O2SAT 97
--- NOTE | 2021-09-09 17:51 | EX.ED.DYSGE1 ---
HPI History of Present Illness Chief Complaint: Abd Pain Informant: patient Onset/Context/Timing Onset: Today Current Severity: Moderate Maximum Severity: Severe Narrative Narrative: Patient presents secondary to nausea and vomiting with upper abdominal pain that started this morning. He states he felt off yesterday but did not get sick. He had frequent vomiting today not able to keep anything down. He has not had a bowel movement and reports decreased urine output. He denies fever or chills. He has a history of IBS as well as cyclic vomiting. He tried Zofran at home without improvement. [facility] Medical History (Updated 09/09/21 @ 19:[address] Zehra Bates MD) Abdominal pain ADHD (attention deficit hyperactivity disorder) Anxiety disorder Benign essential HTN Bipolar 1 disorder Cannabis-related disorder Chronic cough Chronic post-traumatic stress disorder COVID Dehydration Esophageal reflux Familial combined hyperlipidemia Gastric reflux Gilbert syndrome Hiatal hernia History of diverticulitis History of echocardiogram History of edema History of hiatal hernia History of IBS History of steroid therapy History of stress test HTN (hypertension) Hypokalemia Hypomagnesemia Hypophosphatemia IBS (irritable bowel syndrome) Intractable nausea and vomiting Nephrolithiasis Smoker Social anxiety disorder Tobacco abuse Vertigo, intermittent Wears dentures Wears glasses Home Medications metoprolol succinate 25 mg PO QHS 05/21/20 [History Last Taken Unknown] pantoprazole 40 mg PO BID 05/21/20 [History Last Taken Unknown] amlodipine 10 mg PO QHS 01/31/21 [History Last Taken Unknown] benazepril 10 mg PO QHS 01/31/21 [History Last Taken Unknown] gabapentin 400 mg PO QHS 30 Days #30 cap 04/20/21 [Rx Last Taken Unknown] quetiapine [Seroquel] 300 mg PO QHS 04/20/21 [History Last Taken Unknown] clonazepam [Klonopin] 1 mg PO BID 30 Days #60 tab 05/04/21 [Rx Last Taken Unknown] ondansetron 8 mg disintegrating tablet 8 mg PO Q8H PRN #90 tab 08/24/21 [Rx Last Taken Unknown] Allergy/AdvReac Type Severity Reaction Status Date / Time ciprofloxacin AdvReac Upset Verified 09/09/21 16:35 Stomach doxycycline AdvReac Upset Verified 09/09/21 16:35 Stomach metronidazole [From Flagyl] AdvReac Upset Verified 09/09/21 16:35 Stomach Family History Aunt Colon cancer Father Diabetes Hypertension Mother High cholesterol Surgical History History of esophagogastroduodenoscopy (EGD) History of esophagogastroduodenoscopy (EGD) History of incision and drainage S/P cholecystectomy S/P colonoscopy S/P inguinal hernia repair S/P orchiopexy S/P right knee surgery S/P vasectomy Social History Smoking Status: Current every day smoker tobacco type: cigarettes second hand exposure: Yes alcohol intake: never substance use type: does not use caffeine: Yes what type of physical activity do you participate in: none frequency: does not exercise seatbelt use: always ROS ROS ED Constitutional Constitutional ED: Denies chills or fever(s) Eyes Eyes: Denies change in vision ENT ENT ED: Denies sore throat Cardiovascular Cardiovascular: Denies chest pain Respiratory/Chest Respiratory/Chest: Denies cough or dyspnea Gastrointestinal Gastrointestinal: Reports abdominal pain, nausea and vomiting; Denies diarrhea Genitourinary Genitourinary ED: Denies dysuria Musculoskeletal Musculoskeletal: Denies back pain Integumentary Denies rash Neurologic Neurologic: Denies headache(s) or weakness Allergic/Immunologic Allergic/Immunologic ED: Denies urticaria EXAM Physical Exam Const Vital Signs: 09/09/21 16:35 09/09/21 17:49 Temperature 97.2 F L Temperature Source Temporal Pulse Rate 128 H 142 H Respiratory Rate 20 H 25 H Blood Pressure 132/112 H 144/121 H Blood Pressure Mean 118 128 Pulse Ox 95 97 Oxygen Delivery Method Room Air Room Air Positive well nourished and well developed General Appearance ED: well developed HEENT Reports dry mucous membranes Mouth ED: Yes dry mucous membranes Mouth: dry mucous membranes Eyes PERRL and EOMs intact bilaterally Neck supple Chest Wall inspection of chest normal and palpation of chest normal Resp normal respiratory effort and clear to auscultation bilaterally Cardio Rate: tachycardic GI Palpation: soft and tender other (Diffuse tenderness to palpation.) Extremity normal to inspection Neuro oriented x3 Sensorium / Orientation: alert Skin no rashes or lesions noted MDM MDM MDM Narrative Medical decision making narrative: Patient initially given morphine along with Reglan and Benadryl. 2 L of IV fluid ordered. Lab work obtained. Lab Data Attestation: I reviewed the patient's lab results. Labs: Laboratory Results - last 24 hr 09/09/21 09/09/21 09/09/21 17:05 17:05 17:05 WBC 31.8 H* RBC 5.89 Hgb 17.5 H Hct 50.7 MCV 86.1 MCH 29.7 MCHC 34.5 RDW Std Deviation 43.4 RDW Coeff of Seymour 13.8 Plt Count 348 MPV 12.6 H Immature Gran % (Auto) 0.800 Neut % (Auto) 93.1 H Lymph % (Auto) 2.4 L Weber % (Auto) 3.5 Eos % (Auto) 0.0 Baso % (Auto) 0.2 Absolute Neuts (auto) 29.6 H Absolute Lymphs (auto) 0.77 L Nucleated RBC % 0 Differential Comment Diff Path Review May foll Platelet Estimate ADEQUATE RBC Morphology NORM C+C Sodium 137 Potassium 4.7 Chloride 104 Carbon Dioxide 19.0 L Anion Gap 14 BUN 13 Creatinine 3.61 H Estim Creat Clear Calc 27.86 Est GFR (MDRD) Af Amer 24 L Est GFR (MDRD) Non-Af 20 L BUN/Creatinine Ratio 3.6 L Glucose 195 H Calcium 12.3 H Total Bilirubin 1.30 H Direct Bilirubin 0.16 AST 18 ALT 21 Alkaline Phosphatase 144 H Total Protein 10.1 H Albumin 6.1 H Globulin 4.0 Lipase 160 Treatment and Re-Evaluation Narrative: Patient's white count is 31.8 with left shift noted. It does appear on prior visits with similar nausea/vomiting White count was up in the mid 30 range. Chemistry studies remarkable for a creatinine of 3.6. Glucose is 195. LFTs with only mild derangement. Lipase normal. Patient did not have significant improvement with his nausea and dry heaves with first round of medication. He was given dose of Dilaudid along with IM Phenergan. now states that Phenergan is usually what will calm down his vomiting. At this time we will give the patient a dose of Protonix. He will require admission for further evaluation and treatment of his acute kidney failure. In the past patient has had problems with marijuana hyperemesis. He states he last used marijuana 3 weeks ago. Discharge Plan Triage Chief Complaint: Abd Pain Other Complaint: Nausea/Vomiting ED Provider: Zehra Bates Dx/Rx/DC Orders Clinical Impression: Intractable vomiting, Acute renal failure Prescriptions: No Action pantoprazole 40 MG tablet 40 mg PO BID RF: 0 metoprolol succinate 25 MG tablet 25 mg PO QHS RF: 0 amlodipine 10 mg tablet 10 mg PO QHS RF: 0 benazepril 10 mg tablet 10 mg PO QHS RF: 0 gabapentin 400 mg capsule 400 mg PO QHS 30 Days Qty: 30 RF: 1 quetiapine [Seroquel] 300 mg Tablet 300 mg PO QHS RF: 0 clonazepam [Klonopin] 1 mg tablet 1 mg PO BID 30 Days Qty: 60 RF: 1 ondansetron 8 mg tablet,disintegrating 8 mg PO Q8H PRN (Reason: nausea and vomiting) Qty: 90 RF: 0 Primary Care Provider: Talia Bateman Referrals: Talia Bateman PA [Primary Care Provider] - Disposition Disposition: Acute Care Hospital [facility]
[2021-09-09] MEDS: DiphenhydrAMINE 50 MG/ML Syringe 12.5 MG IV (17:54)
[2021-09-09] MEDS: 0.9% Normal Saline 1,000 ML 1000 ML IV ×2 (17:54→19:16)
[2021-09-09] MEDS: Morphine 4 MG/ML Syringe IV (17:55)
[2021-09-09] MEDS: Metoclopramide 10 MG/2 ML Vial IV (17:56)
[2021-09-09 18:02] LABS: Anion Gap 14 (5-15); BUN 13 mg/dL (7-18); BUN/Creat Ratio 3.6 RATIO (10-20); Calcium,Total 12.3 mg/dL (8.5-10.1); Chloride 104 mmol/L (98-107); Creatinine, Serum 3.61 mg/dL (0.70-1.30); EST Glomerular Filtration Rate 20 mL/min (>60); Est Glom Filt Rate - Afr Amer 24 mL/min (>60); Estimated Creatinine Clearance 27.86 ml/min; Glucose 195 mg/dL (74-106); Potassium 4.7 mmol/L (3.5-5.1); Sodium Level 137 mmol/L (136-145)
[2021-09-09 18:21] LABS: Platelet Estimate ADEQUATE (ADEQ); Red Cell Morphology NORM C+C NORMAL (NORM C&C)
[2021-09-09] MEDS: proMETHazine 25 MG/ML Syringe IM (19:12)
[2021-09-09] MEDS: HYDROmorphone 0.5 MG/0.5 ML SYRINGE IV ×2 (19:12→22:21)
[2021-09-09 19:16] LABS: AST(SGOT) 18 U/L (15-37); Alanine Aminotransfer ALT/SGPT 21 U/L (16-61); Albumin, Serum 6.1 g/dL (3.2-5.0); Alkaline Phosphatase 144 U/L (45-117); Bilirubin, Direct 0.16 mg/dL (0.00-0.30); Lipase 160 U/L (73-393); Protein, Total 10.1 g/dL (6.4-8.2)
--- NOTE | 2021-09-09 20:18 | PCM.HP.STD ---
HPI - General General Date of Admission: 09/09/21 HPI Narrative CAS SANCHEZ, is a 41 M with a significant history of IBS; ADHD; PTSD; social anxiety disorder who presents to the emergency department with multiple episodes of nausea and vomiting that started several hours on the same day of presentation. He has noticed streaks of blood in his vomitus. Associated with his symptoms is epigastric pain. He is unable to eat. He denies diarrhea. Also a day before his presentation he had chills PFSH Medical History Abdominal pain ADHD (attention deficit hyperactivity disorder) Anxiety disorder Benign essential HTN Bipolar 1 disorder Cannabis-related disorder Chronic cough Chronic post-traumatic stress disorder COVID Dehydration Esophageal reflux Familial combined hyperlipidemia Gastric reflux Gilbert syndrome Hiatal hernia History of diverticulitis History of echocardiogram History of edema History of hiatal hernia History of IBS History of steroid therapy History of stress test HTN (hypertension) Hypokalemia Hypomagnesemia Hypophosphatemia IBS (irritable bowel syndrome) Intractable nausea and vomiting Nephrolithiasis Smoker Social anxiety disorder Tobacco abuse Vertigo, intermittent Wears dentures Wears glasses Home Medications metoprolol succinate 25 mg PO QHS 05/21/20 [History Last Taken Unknown] pantoprazole 40 mg PO BID 05/21/20 [History Last Taken Unknown] amlodipine 10 mg PO QHS 01/31/21 [History Last Taken Unknown] benazepril 10 mg PO QHS 01/31/21 [History Last Taken Unknown] gabapentin 400 mg PO QHS 30 Days #30 cap 04/20/21 [Rx Last Taken Unknown] quetiapine [Seroquel] 300 mg PO QHS 04/20/21 [History Last Taken Unknown] clonazepam [Klonopin] 1 mg PO BID 30 Days #60 tab 05/04/21 [Rx Last Taken Unknown] ondansetron 8 mg disintegrating tablet 8 mg PO Q8H PRN #90 tab 08/24/21 [Rx Last Taken Unknown] Allergy/AdvReac Type Severity Reaction Status Date / Time ciprofloxacin AdvReac Upset Verified 09/09/21 16:35 Stomach doxycycline AdvReac Upset Verified 09/09/21 16:35 Stomach metronidazole [From Flagyl] AdvReac Upset Verified 09/09/21 16:35 Stomach Family History Aunt Colon cancer Father Diabetes Hypertension Mother High cholesterol Surgical History History of esophagogastroduodenoscopy (EGD) History of esophagogastroduodenoscopy (EGD) History of incision and drainage S/P cholecystectomy S/P colonoscopy S/P inguinal hernia repair S/P orchiopexy S/P right knee surgery S/P vasectomy Social History Smoking Status: Current every day smoker tobacco type: cigarettes second hand exposure: Yes alcohol intake: never substance use type: does not use caffeine: Yes what type of physical activity do you participate in: none frequency: does not exercise seatbelt use: always ROS ROS Narrative Pertinent positives and pertinent negatives as noted in HPI. All other systems were reviewed and are negative. Vital Signs Vital Signs Vital Signs: 09/09/21 16:35 09/09/21 17:49 Temperature 97.2 F L Temperature Source Temporal Pulse Rate 128 H 142 H Respiratory Rate 20 H 25 H Blood Pressure 132/112 H 144/121 H Blood Pressure Mean 118 128 Pulse Ox 95 97 Oxygen Delivery Method Room Air Room Air Weight Weight: 74.661 kg Body Mass Index (BMI) 21.1 Physical Exam Narrative Physical exam: General: Patient in acute distress from vomiting Head: Normocephalic, atraumatic, no tenderness Eyes: Vision is grossly intact. EOMI ENT, no trauma, moist mucous membranes, no rhinorrhea Neck: Nontender, full range of motion, no spinal tenderness, deformities, step-off CVS: Regular rate and rhythm. S1-S2 present. No murmur, gallop or rub. Respiratory : clear to auscultation bilaterally, chest wall nontender, no wheezing Abdomen: Soft, nondistended, normal bowel sounds, no masses : Deferred Back: Nontender, no CVA tenderness, no midline spinal tenderness, deformities, step-offs Extremities: Nontender full range of motion, no trauma Skin: Normal color, no trauma, abrasions Neuro: Alert, oriented, cranial nerves II through XII grossly intact. Psychiatry: Normal mood. Normal affect. Not depressed. Not anxious. Results Lab / Micro Data Result Diagrams: 09/09/21 17:05 09/09/21 17:05 Labs: Laboratory Results - last 24 hr 09/09/21 17:05: WBC 31.8 H*, RBC 5.89, Hgb 17.5 H, Hct 50.7, MCV 86.1, MCH 29.7, MCHC 34.5, RDW Std Deviation 43.4, RDW Coeff of Seymour 13.8, Plt Count 348, MPV 12.6 H, Immature Gran % (Auto) 0.800, Neut % (Auto) 93.1 H, Lymph % (Auto) 2.4 L, [place] % (Auto) 3.5, Eos % (Auto) 0.0, Baso % (Auto) 0.2, Absolute Neuts (auto) 29.6 H, Absolute Lymphs (auto) 0.77 L, Nucleated RBC % 0, Differential Comment , Diff Path Review August, Platelet Estimate ADEQUATE, RBC Morphology NORM C+C 09/09/21 17:05: Sodium 137, Potassium 4.7, Chloride 104, Carbon Dioxide 19.0 L, Anion Gap 14, BUN 13, Creatinine 3.61 H, Estim Creat Clear Calc 27.86, Est GFR (MDRD) Af Amer 24 L, Est GFR (MDRD) Non-Af 20 L, BUN/Creatinine Ratio 3.6 L, Glucose 195 H, Calcium 12.3 H 09/09/21 17:05: Total Bilirubin 1.30 H, Direct Bilirubin 0.16, AST 18, ALT 21, Alkaline Phosphatase 144 H, Total Protein 10.1 H, Albumin 6.1 H, Globulin 4.0, Lipase 160 Assessment & Plan Assessment/Plan (1) Intractable vomiting: (2) Acute renal failure: QUALIFIERS: Acute renal failure type: unspecified Qualified Code(s): N17.9 - Acute kidney failure, unspecified PLAN: Intractable nausea, vomiting abdominal pain CBC showed leukocytosis with white count of 31.8 likely reactive. With neutrophilia of 93.1% and lymphopenia of 2.4%. Review of previous records showed on 08/02/2015 patient white count was 34.3; on 05/25/2015 his white count was 31.7 and on 05/08/2015 his white count was 31.8. From review of records patient had a colonoscopy on 03/03/2021. At that time nine 1 to 2 mm polyps were removed. EGD on 02/02/2021 showed LA grade a reflux esophagitis. Also patient had erythematous duodenopathy. Supportive treatment with lactated Ringer's; IV Zofran as needed; IV Compazine as needed and Dilaudid. Trend CBC We will keep patient n.p.o. secondary to nausea and vomiting. While n.p.o. hold all home p.o. medications. Protonix IV twice daily ordered. Of note patient is on Protonix p.o. twice daily at home. If patient is not getting better consider a gastroenterology consult. Of note patient has an outpatient appointment with inspector repairer sandstone. Acute renal failure His creatinine on presentation was 3.61. BUN is 13. BUN over creatinine is 3.6. Likely prerenal entering into intrinsic renal Baseline creatinine of 1. Noted to have non-anion gap metabolic acidosis likely secondary to GI loss. Gentle IV hydration. Avoid nephrotoxins. Of note patient is on home BETTIE inhibitor that has been held. Trend BMP Hypertension Blood pressure is not within goal Home amlodipine held secondary to n.p.o. status. Likewise home metoprolol has been held. IV metoprolol ordered. Trend blood pressure and adjust blood pressure medications. Acute hyperglycemia Blood glucose of 195. Likely reactive. Check A1c. Trend BMP PTSD/ ADHD/other psychiatry disorder. Seroquel held secondary to n.p.o. status. On home Klonopin. As needed Ativan IV ordered. Cannabinoid use. Reports the last time he used cannabinol use was about 2 to 3 weeks ago. Unlikely marijuana hyperemesis syndrome DVT prophylaxis With reported streaks of blood noted hemicolectomy prophylaxis at this time. SCDs ordered. Charges/Coding Visit Charges Inpatient E&M: 78756 Init Hosp L3
[2021-09-09] MEDS: LORazepam 2 MG/ML Syringe 0.5 MG IV (20:23)
[2021-09-09] MEDS: Ondansetron 4 MG/2 ML Vial IV (20:23)
[2021-09-09 20:38] VITALS: BP 145/96; PULSE 111; RESP 18; O2SAT 100
[2021-09-09] MEDS: 0.9% Normal Saline 1,000 ML 150 ML IV (20:41)
[2021-09-09 20:44] VITALS: BP 150/96; PULSE 114; RESP 18; TEMP 36.9; O2SAT 99
[2021-09-09 20:46] VITALS: BMI 21.1
[2021-09-09 21:04] VITALS: BP 128/79; PULSE 108; RESP 18; TEMP 36.7; O2SAT 98
[2021-09-09] MEDS: 0.9% Saline Lock 10 ML Syringe IV ×2 (21:40→22:21)
[2021-09-09] MEDS: proCHLORPERazine 10 MG/2 ML Vial 5 MG IV (21:40)
[2021-09-09] MEDS: Lactated Ringers 4,000 ML 100 ML IV (22:20)
[2021-09-10] VITALS (18 sets, daily range): BP systolic 110–136; BP diastolic 74–93; PULSE 80–110; RESP 16–18; TEMP 36.6–37.1; O2SAT 95–98
[2021-09-10] MEDS: Metoprolol Tartrate 5 MG/5 ML Vial IV ×2 (00:31→06:58)
[2021-09-10] MEDS: QUEtiapine 100 MG Tablet 300 MG PO ×2 (00:31→20:49)
[2021-09-10] MEDS: Gabapentin 100 MG Capsule 200 MG PO ×2 (00:31→20:44)
[2021-09-10] MEDS: 0.9% Saline Lock 10 ML Syringe IV ×3 (00:32→06:58)
[2021-09-10 01:02] LABS: Mucous, Urine 0 SEEN /hpf (<or=2+); Squamous Epithelial Cells - UA 0 SEEN /hpf (0-5)
[2021-09-10 01:05] LABS: Color, Urine Amber (Yellow); Glucose, Dipstick Normal (Normal); Ketone-Dipstick 15 mg/dl (Negative); Leukocyte Esterase-Dipstick 25 /ul (Negative); Nitrite-Dipstick Negative (Negative); Occult Blood-Urine 50 /ul (Negative); Protein-Dipstick 100 mg/dl (Negative); Specific Gravity, Urine 1.025 (1.002-1.030); Urine Clarity Sl. Cloudy (Clear); Urine Urobilinogen 1 mg/dl (Normal)
[2021-09-10 01:10] LABS: Urine Bilirubin Dipstick 1 mg/dL (Negative)
[2021-09-10 01:13] LABS: Bacteria 2+ /hpf (None Seen); Hyaline Cast 10-25 SEEN /lpf (0-5); Red Blood Cells-Urine 0-5 SEEN /hpf (0-5); White Blood Cells 5-10 SEEN /hpf (0-5)
[2021-09-10 01:14] LABS: Calcium Oxalate Crystals Ur 1+ /hpf (<or=2+)
[2021-09-10] MEDS: HYDROmorphone 0.5 MG/0.5 ML SYRINGE IV ×3 (02:24→11:01)
[2021-09-10] MEDS: proCHLORPERazine 10 MG/2 ML Vial 5 MG IV ×4 (02:24→20:49)
[2021-09-10 07:25] LABS: Absolute Lymphocyte Count 1.57 X10^3/uL (0.83-4.51); Basophil# 0.04 X10^3/uL; Basophil% 0.2 % (0-1); Hematocrit 39.5 % (40-54); Hemoglobin 13.6 g/dL (13.0-16.5); Lymphocyte # 1.57 X10^3/ul (0.83-4.51); Lymphocyte % 6.7 % (19-41); Mean Corp Hgb Conc 34.4 g/dL (32-36); Mean Corpuscular Hgb 29.8 pg (27.0-32.0); Mean Corpuscular Volume 86.6 fL (80-94); Mean Platelet Vol. 12.1 fl (6.2-12.0); Monocyte# 1.68 X10^3/uL; Monocyte% 7.2 % (0-10); NRBC Flagged by Analyzer 0 % (0-5); Neutrophil # 20.03 X10^3/uL (2.7-7.7); Neutrophil % 85.2 % (47-70); POSITIVE DIFFERENTIAL YES; Platelet Count 241 K/mm3 (150-450); Red Blood Count 4.56 M/mm3 (4.6-6.2); White Blood Count 23.5 K/mm3 (4.4-11.0)
[2021-09-10 07:51] LABS: Differential Indicated SCAN CRITERIA MET
[2021-09-10 08:10] LABS: ALB/GLOB Ratio 1.4 RATIO (0.9-2.4); AST(SGOT) 13 U/L (15-37); Alanine Aminotransfer ALT/SGPT 16 U/L (16-61); Albumin, Serum 4.2 g/dL (3.2-5.0); Alkaline Phosphatase 94 U/L (45-117); Anion Gap 7 (5-15); BUN 21 mg/dL (7-18); BUN/Creat Ratio 11.7 RATIO (10-20); Calcium,Total 9.7 mg/dL (8.5-10.1); Chloride 110 mmol/L (98-107); Creatinine, Serum 1.79 mg/dL (0.70-1.30); EST Glomerular Filtration Rate 44 mL/min (>60); Est Glom Filt Rate - Afr Amer 54 mL/min (>60); Estimated Creatinine Clearance 56.19 ml/min; Globulin 2.9 g/dL (2.2-4.2); Glucose 121 mg/dL (74-106); Potassium 4.6 mmol/L (3.5-5.1); Protein, Total 7.1 g/dL (6.4-8.2); Sodium Level 138 mmol/L (136-145)
[2021-09-10 08:11] LABS: Hemoglobin A1c 5.4 % (3.8-5.6)
--- NOTE | 2021-09-10 08:58 | PN.HOSP_ITS ---
Subjective Subjective Follow-up on intractable nausea and vomiting: Patient was seen and examined. He complains of severe left lower quadrant pain. Stated that he still nauseous. No other acute events overnight. Denies any fever or chills. No diarrhea Objective Data Objective Data Vital Signs: Vital Signs Temp Pulse Resp BP Pulse Ox 97.9 F 80 16 120/78 95 09/10/21 07:00 09/10/21 07:10 09/10/21 07:00 09/10/21 07:10 09/10/21 07:00 Oxygen Delivery Method Room Air Weight: 74.661 kg Body Mass Index (BMI) 21.1 Intake & Output: Intake and Output for Last 24 Hours 09/08/21 09/09/21 09/10/21 23:59 23:59 23:59 Intake Total 2357.5 / 2357.5 Output Total 200 / 200 Balance 2357.5 / 2357.5 -200 / -200 Lab / Micro Data Result Diagrams: 09/10/21 06:39 09/10/21 06:39 Labs: Laboratory Results - last 24 hr 09/09/21 00:50: Urine Color Pat, Urine Clarity Sl. Cloudy, Urine pH 6.0, Ur Specific Radford 1.025, Urine Protein 100 H, Urine Glucose (UA) Normal, Urine Ketones 15 H, Urine Occult Blood 50 H, Urine Nitrite Negative, Urine Bilirubin 1 H, Urine Urobilinogen 1 H, Ur Leukocyte Esterase 25 H, Urine RBC 0-5 SEEN, Urine WBC 5-10 SEEN, Ur Squamous Epith Cells 0 SEEN, Calcium Oxalate Crystal 1+, Urine Bacteria 2+, Hyaline Casts 10-25 SEEN, Urine Mucus 0 SEEN 09/09/21 17:05: WBC 31.8 H*, RBC 5.89, Hgb 17.5 H, Hct 50.7, MCV 86.1, MCH 29.7, MCHC 34.5, RDW Std Deviation 43.4, RDW Coeff of Seymour 13.8, Plt Count 348, MPV 12.6 H, Immature Gran % (Auto) 0.800, Neut % (Auto) 93.1 H, Lymph % (Auto) 2.4 L , [place] % (Auto) 3.5, Eos % (Auto) 0.0, Baso % (Auto) 0.2, Absolute Neuts (auto) 29.6 H, Absolute Lymphs (auto) 0.77 L, Nucleated RBC % 0, Differential Comment , Diff Path Review August, Platelet Estimate ADEQUATE, RBC Morphology NORM C+C 09/09/21 17:05: Sodium 137, Potassium 4.7, Chloride 104, Carbon Dioxide 19.0 L, Anion Gap 14, BUN 13, Creatinine 3.61 H, Estim Creat Clear Calc 27.86, Est GFR (MDRD) Af Amer 24 L, Est GFR (MDRD) Non-Af 20 L, BUN/Creatinine Ratio 3.6 L, Glucose 195 H, Calcium 12.3 H 09/09/21 17:05: Total Bilirubin 1.30 H, Direct Bilirubin 0.16, AST 18, ALT 21, Alkaline Phosphatase 144 H, Total Protein 10.1 H, Albumin 6.1 H, Globulin 4.0, Lipase 160 09/10/21 06:39: WBC 23.5 H, RBC 4.56 L, Hgb 13.6, Hct 39.5 L, MCV 86.6, MCH 29.8, MCHC 34.4, RDW Std Deviation 44.0 H, RDW Coeff of Seymour 14.0, Plt Count 241, MPV 12.1 H, Immature Gran % (Auto) 0.700, Neut % (Auto) 85.2 H, Lymph % (Auto) 6.7 L, [place] % (Auto) 7.2, Eos % (Auto) 0.0, Baso % (Auto) 0.2, Absolute Neuts (auto) 20.0 H, Absolute Lymphs (auto) 1.57, Nucleated RBC % 0, Diff Path Review August mauri 09/10/21 06:39: Sodium 138, Potassium 4.6, Chloride 110 H, Carbon Dioxide 21.0, Anion Gap 7, BUN 21 H, Creatinine 1.79 H, Estim Creat Clear Calc 56.19, Est GFR (MDRD) Af Amer 54 L, Est GFR (MDRD) Non-Af 44 L, BUN/Creatinine Ratio 11.7, Glucose 121 H, Calcium 9.7, Total Bilirubin 1.50 H, AST 13 L, ALT 16, Alkaline Phosphatase 94, Total Protein 7.1, Albumin 4.2, Globulin 2.9, Albumin/Globulin Ratio 1.4 09/10/21 06:39: Hemoglobin A1c 5.4 Physical Exam Narrative Physical exam: General: Alert, Oriented x3, Cooperative, No apparent distress, Well developed HEENT: Atraumatic Oral: Moist Mucosa Neck: Supple Lungs: Clear to auscultation Cardiovascular: HS I+II, regular, no murmurs Abdomen: Bowel Sounds Present, Soft, left lower quadrant tenderness with guarding but no rebound tenderness Extremities: No edema Skin: No rashes, No breakdown Neurological: Grossly intact Psych/Mental Status: Appropriate Assessment & Plan Assessment/Plan (1) Intractable vomiting: (2) Acute renal failure: QUALIFIERS: Acute renal failure type: unspecified Qualified Code(s): N17.9 - Acute kidney failure, unspecified PLAN: 1. Acute intractable abdominal pain with nausea and vomiting Likely secondary to acute kidney stone CT of the abdomen pelvis without contrast showed a 2 mm nonobstructing stone Continue to manage symptomatically DC IV Dilaudid, oxycodone as needed 2. ZACKARY, prerenal, in a patient with baseline creatinine of 1, secondary to dehydration We will hold BETTIE inhibitor Would continue IV fluids, repeat BMP in a.m. 3. Hypertension, and, continue on amlodipine, metoprolol 4. PTSD/ ADHD, continue on Seroquel and Klonopin 5. DVT PPx- SCDs Charges/Coding Visit Charges Inpatient E&M: 84248 Subs Hosp L2
[2021-09-10] MEDS: Lactated Ringers 1,000 ML 100 ML IV ×2 (09:04→20:43)
--- NOTE | 2021-09-10 09:29 | CT_ITS ---
STUDY: CT ABDOMEN AND PELVIS WITHOUT CONTRAST REASON FOR EXAM: Male, 41 years old. abdominal pain RADIATION DOSAGE (If Supplied By Facility): CTDIvol = ( 6.69 ) mGy, DLP = ( 379.16 ) mGycm TECHNIQUE: Transaxial images were obtained from the dome of the diaphragm to the symphysis pubis without oral contrast, and without intravenous contrast. Sagittal and coronal images were reconstructed. Individualized dose optimization techniques were used for this CT. COMPARISON: 10/09/2019 FINDINGS: Some bibasilar linear scarring. The visualized portions of the heart are within normal limits. Normal liver. There is non-visualization of the gallbladder, which may be secondary to either contraction or a prior cholecystectomy. Normal spleen. Normal pancreas. There is symmetric enlargement of the adrenal glands suggesting adrenal hyperplasia. Normal right kidney. 2 mm nonobstructing stone in the upper pole left kidney. Normal visualized stomach. Normal small intestine. Normal colon. The appendix is visualized and appears normal. Normal abdominal aorta. Normal inferior vena cava. Normal retroperitoneum. Normal urinary bladder. Normal abdominal wall. Normal osseous structures. CT/Abdomen/Pelvis without Cont IMPRESSION: 2 mm nonobstructing left renal stone. Electronically Signed: Aakash Blanton MD at 11:25 EDT ,
[2021-09-10] MEDS: Pantoprazole Sodium 40 MG Tablet PO ×2 (11:00→20:49)
[2021-09-10] MEDS: amLODIPine 10 MG Tablet PO ×2 (11:00→20:44)
[2021-09-10] MEDS: Metoprolol(XL)Succ 25 MG Tablet PO ×2 (11:00→20:44)
[2021-09-10] MEDS: clonazePAM 1 MG Tablet PO ×2 (11:01→20:43)
--- NOTE | 2021-09-10 12:55 | CASEMGMT ---
RN WILFREDO Face to Face with patient for initial transition planning/care coordination assessment. RN CM introduced self and role at [facility]. Patient lying in bed, alert and oriented. Patient willing to participate in assessment and is able to answer all questions appropriately. Care providers, pharmacy, and demographics verified. Patient wishes to discharge home, denies need for home health at this time. Patient states he has no further needs or concerns at this time. CM to follow for discharge planning needs that may arise. PCP: Fransico DE LEON Specialists: [facility]erred [facility]: [facility] Benef[facility]: yes Living Will/HPOA: none LNOK: Living Arrangements: Patient live with and children in a 2 story home with bed and bath on first floor. 2 steps and railing to enter the home. Patient states he is independent at home. Transportation: self, DME/HHC: Patient denies DME or HHC Disposition Plan: Patient to discharge home with family support and follow-up plans in place. Kalina HERMAN, RN, CM
[2021-09-10] MEDS: oxyCODONE 5 MG Tablet PO ×2 (15:06→22:04)
[2021-09-10] MEDS: Ensure Clear 120 ML Liquid PO (16:50)
[2021-09-11] MEDS: Ondansetron 4 MG/2 ML Vial IV ×2 (01:35→18:15)
[2021-09-11 02:29] VITALS: BP 137/76; PULSE 86; RESP 16; TEMP 36.9; O2SAT 98
[2021-09-11] MEDS: Lactated Ringers 1,000 ML 100 ML IV ×2 (04:42→15:57)
[2021-09-11] MEDS: oxyCODONE 5 MG Tablet PO (04:42)
[2021-09-11 08:19] VITALS: BP 109/78; PULSE 78; RESP 18; TEMP 36.4; O2SAT 98
[2021-09-11] MEDS: Ensure Clear 120 ML Liquid PO ×3 (08:27→16:46)
[2021-09-11] MEDS: Pantoprazole Sodium 40 MG Tablet PO (08:27)
[2021-09-11] MEDS: clonazePAM 1 MG Tablet PO ×2 (08:30→21:44)
[2021-09-11 10:13] LABS: Absolute Lymphocyte Count 1.29 X10^3/uL (0.83-4.51); Absolute Neutrophil Count 9.1 X10^3/uL (2.0-7.7); Basophil# 0.04 X10^3/uL; Basophil% 0.4 % (0-1); Eosinophil# 0.03 X10^3/uL; Eosinophils% 0.3 % (0-5); Hemoglobin 12.3 g/dL (13.0-16.5); Lymphocyte # 1.29 X10^3/ul (0.83-4.51); Lymphocyte % 11.3 % (19-41); Mean Corp Hgb Conc 33.2 g/dL (32-36); Mean Corpuscular Hgb 29.4 pg (27.0-32.0); Mean Corpuscular Volume 88.5 fL (80-94); Mean Platelet Vol. 12.4 fl (6.2-12.0); Monocyte# 0.87 X10^3/uL; Monocyte% 7.6 % (0-10); NRBC Flagged by Analyzer 0 % (0-5); Platelet Count 191 K/mm3 (150-450); RBC Distribution Width CV 13.8 % (11.6-14.6); RBC Distribution Width SD 44.8 fl (35.1-43.9); Red Blood Count 4.18 M/mm3 (4.6-6.2); White Blood Count 11.4 K/mm3 (4.4-11.0)
[2021-09-11 10:34] LABS: ALB/GLOB Ratio 1.3 RATIO (0.9-2.4); AST(SGOT) 16 U/L (15-37); Alanine Aminotransfer ALT/SGPT 14 U/L (16-61); Albumin, Serum 3.4 g/dL (3.2-5.0); Alkaline Phosphatase 83 U/L (45-117); Anion Gap 5 (5-15); BUN 15 mg/dL (7-18); BUN/Creat Ratio 14.3 RATIO (10-20); Calcium,Total 8.5 mg/dL (8.5-10.1); Chloride 109 mmol/L (98-107); Creatinine, Serum 1.05 mg/dL (0.70-1.30); EST Glomerular Filtration Rate 82 mL/min (>60); Est Glom Filt Rate - Afr Amer 99 mL/min (>60); Estimated Creatinine Clearance 95.85 ml/min; Globulin 2.6 g/dL (2.2-4.2); Glucose 113 mg/dL (74-106); Potassium 3.9 mmol/L (3.5-5.1); Sodium Level 136 mmol/L (136-145)
[2021-09-11 10:51] VITALS: O2SAT 94
--- NOTE | 2021-09-11 10:56 | PCM.PN.HOSP ---
Subjective Subjective Follow-up on intractable nausea and vomiting: Patient was seen and examined. He complains of severe epigastric and left upper quadrant tenderness. He stated that he still nauseous. He was seen trying to eat his breakfast. Denied any diarrhea. Objective Data Objective Data Vital Signs: Vital Signs Temp Pulse Resp BP Pulse Ox 97.6 F L 78 18 109/78 94 09/11/21 08:19 09/11/21 08:19 09/11/21 08:19 09/11/21 08:09/11/21 10:51 Oxygen Delivery Method Room Air Weight: 74.7 kg Body Mass Index (BMI) 21.1 Intake & Output: Intake and Output for Last 24 Hours 09/09/21 09/10/21 09/11/21 23:59 23:59 23:59 Intake Total 2357.5 / 2357.5 2636.67 / 2636.67 1098.33 / 1098.33 Output Total 650 / 650 325 / 325 Balance 2357.5 / 2357.5 1986.67 / 1985.67 773.33 / 773.33 Lab / Micro Data Result Diagrams: 09/11/21 09:38 09/11/21 09:38 Labs: Laboratory Results - last 24 hr 09/11/21 09:38: WBC 11.4 H, RBC 4.18 L, Hgb 12.3 L, Hct 37.0 L, MCV 88.5, MCH 29.4, MCHC 33.2, RDW Std Deviation 44.8 H, RDW Coeff of [place]ymour 13.8, Plt Count 191, MPV 12.4 H, Immature Gran % (Auto) 0.400, Neut % (Auto) 80.0 H, Lymph % (Auto) 11.3 L, [place] % (Auto) 7.6, Eos % (Auto) 0.3, Baso % (Auto) 0.4, Absolute Neuts (auto) 9.1 H, Absolute Lymphs (auto) 1.29, Nucleated RBC % 0 09/11/21 09:38: Sodium 136, Potassium 3.9, Chloride 109 H, Carbon Dioxide 22.0, Anion Gap 5, BUN 15, Creatinine 1.05, Estim Creat Clear Calc 95.85, Est GFR (MDRD) Af Amer 99, Est GFR (MDRD) Non-Af 82, BUN/Creatinine Ratio 14.3, Glucose 113 H, Calcium 8.5, Total Bilirubin 1.80 H, AST 16, ALT 14 L, Alkaline Phosphatase 83, Total Protein 6.0 L, Albumin 3.4, Globulin 2.6, Albumin/Globulin Ratio 1.3 Radiography Diagnostic Testing: Radiology Impression Abdomen/Pelvis CT 09/10/21 09:29 IMPRESSION: 2 mm nonobstructing left renal stone. Electronically Signed: Aakash Blanton MD at 11:25 EDT , Physical Exam Narrative Physical exam: General: Alert, Oriented x3, Cooperative, No apparent distress HEENT: Atraumatic Oral: Moist Mucosa Neck: Supple Lungs: Clear to auscultation Cardiovascular: HS I+II, regular, no murmurs Abdomen: Bowel Sounds Present, Soft, epigastric/LUQ tenderness without guarding or RBT Extremities: No edema Skin: No rashes, No breakdown Neurological: Grossly intact Psych/Mental Status: Appropriate Assessment & Plan Assessment/Plan (1) Intractable vomiting: (2) Acute renal failure: QUALIFIERS: Acute renal failure type: unspecified Qualified Code(s): N17.9 - Acute kidney failure, unspecified PLAN: 1. Acute intractable abdominal pain with nausea and vomiting Likely due to suspected acute gastritis CT of the abdomen pelvis without contrast showed a 2 mm nonobstructing stone Continue gentle IV fluids, IV PPI twice daily, sucralfate Continue to manage pain with Tylenol every 8 hours Narcotic pain medication discontinued 2. ZACKARY, prerenal, in a patient with baseline creatinine of 1, secondary to dehydration Creatinine is improving, currently 1.05, from 3.61 We will continue to hold BETTIE inhibitor Would continue IV fluids, repeat BMP in a.m. 3. Hypertension, controlled, continue on amlodipine, metoprolol 4. PTSD/ ADHD, continue on Seroquel and Klonopin 5. Hyperbilirubinemia, unclear etiology, total bilirubin trending up, CT of the abdomen and pelvis shows normal liver Will fractionate bilirubin Repeat blood work in am 6. DVT PPx- SCDs Charges/Coding Visit Charges Inpatient E&M: 89763 Subs Hosp L2
[2021-09-11] MEDS: Sucralfate 1 GM Tablet PO ×3 (11:47→21:43)
[2021-09-11] MEDS: Acetaminophen 500 MG Tablet 1000 MG PO ×2 (13:14→21:47)
[2021-09-11 13:32] LABS: Bilirubin, Direct 0.29 mg/dL (0.00-0.30)
[2021-09-11 15:51] VITALS: BP 106/74; PULSE 60; RESP 18; TEMP 36.6; O2SAT 100
[2021-09-11] MEDS: 0.9% Saline Lock 10 ML Syringe IV ×2 (18:14→20:38)
[2021-09-11] MEDS: proCHLORPERazine 10 MG/2 ML Vial 5 MG IV (20:24)
[2021-09-11] MEDS: Gabapentin 100 MG Capsule 200 MG PO (21:44)
[2021-09-11] MEDS: amLODIPine 10 MG Tablet PO (21:45)
[2021-09-11] MEDS: QUEtiapine 100 MG Tablet 300 MG PO (21:46)
[2021-09-11 21:47] VITALS: BP 121/59; PULSE 72
[2021-09-11] MEDS: Metoprolol(XL)Succ 25 MG Tablet PO (21:47)
[2021-09-11 21:55] VITALS: BP 121/59; PULSE 72; RESP 18; TEMP 37.2; O2SAT 99
[2021-09-12] VITALS (7 sets, daily range): BP systolic 109–130; BP diastolic 75–86; PULSE 65–100; RESP 16–18; TEMP 36.4–37.3; O2SAT 97–99
[2021-09-12] MEDS: Lactated Ringers 1,000 ML 100 ML IV ×3 (02:51→21:32)
[2021-09-12] MEDS: Ondansetron 4 MG/2 ML Vial IV (02:55)
[2021-09-12] MEDS: proCHLORPERazine 10 MG/2 ML Vial 5 MG IV ×4 (06:06→21:30)
[2021-09-12] MEDS: 0.9% Saline Lock 10 ML Syringe IV (06:06)
[2021-09-12] MEDS: Acetaminophen 500 MG Tablet 1000 MG PO ×3 (06:11→21:29)
[2021-09-12] MEDS: Sucralfate 1 GM Tablet PO (06:11)
[2021-09-12 06:31] LABS: Absolute Lymphocyte Count 1.34 X10^3/uL (0.83-4.51); Absolute Neutrophil Count 5.3 X10^3/uL (2.0-7.7); Basophil# 0.02 X10^3/uL; Basophil% 0.3 % (0-1); Eosinophil# 0.06 X10^3/uL; Eosinophils% 0.8 % (0-5); Hematocrit 41.3 % (40-54); Hemoglobin 13.8 g/dL (13.0-16.5); Lymphocyte # 1.34 X10^3/ul (0.83-4.51); Mean Corp Hgb Conc 33.4 g/dL (32-36); Mean Corpuscular Hgb 29.7 pg (27.0-32.0); Mean Platelet Vol. 12.2 fl (6.2-12.0); Monocyte# 0.67 X10^3/uL; NRBC Flagged by Analyzer 0 % (0-5); Neutrophil # 5.31 X10^3/uL (2.7-7.7); Neutrophil % 71.2 % (47-70); Platelet Count 192 K/mm3 (150-450); RBC Distribution Width CV 13.2 % (11.6-14.6); RBC Distribution Width SD 43.6 fl (35.1-43.9); Red Blood Count 4.64 M/mm3 (4.6-6.2); White Blood Count 7.5 K/mm3 (4.4-11.0)
[2021-09-12 06:56] LABS: ALB/GLOB Ratio 1.2 RATIO (0.9-2.4); AST(SGOT) 17 U/L (15-37); Alanine Aminotransfer ALT/SGPT 18 U/L (16-61); Albumin, Serum 3.9 g/dL (3.2-5.0); Alkaline Phosphatase 99 U/L (45-117); Anion Gap 7 (5-15); BUN 10 mg/dL (7-18); BUN/Creat Ratio 10.3 RATIO (10-20); Calcium,Total 9.1 mg/dL (8.5-10.1); Chloride 108 mmol/L (98-107); Creatinine, Serum 0.97 mg/dL (0.70-1.30); EST Glomerular Filtration Rate 90 mL/min (>60); Est Glom Filt Rate - Afr Amer 109 mL/min (>60); Estimated Creatinine Clearance 103.75 ml/min; Globulin 3.2 g/dL (2.2-4.2); Glucose 101 mg/dL (74-106); Potassium 4.1 mmol/L (3.5-5.1); Protein, Total 7.1 g/dL (6.4-8.2); Sodium Level 138 mmol/L (136-145)
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
[2021-09-12] MEDS: clonazePAM 1 MG Tablet PO (08:53)
--- NOTE | 2021-09-12 15:09 | CHAPLAIN ---
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 ___ Other (describe below) Sacrament/Intervention _x__ Active listening ___ Anointing ___ Buddhist ___ Bereavement ___ Communion _x__ Zahira exploration ___ _x__ Life review _x__ Prayer ___ Reconciliation ___ Sacrament of Sick _x__ Supportive presence ___ Wedding ___ Other (describe below) Pastoral Comments upon entering room the patient was curled up in bed with covers over him; introducing self and role of clinical education coordinator the patient became tearful and stated please pray for me; after prayer the patient became very open to talk about his situation, illness, fears, and need of spiritual support; pt opened up about his life and stresses and sought spiritual help; spouse came into room at this time; patient spoke freely about his past and stated that there are things I need to talk about; long time of presence and encouragement and support given; pt would like a follow up visit of spiritual care
[2021-09-12 15:10] LABS: Pathologist Review Reviewed
[2021-09-12 15:13] LABS: Pathologist Review Reviewed
[2021-09-12] MEDS: busPIRone 5 MG Tablet 10 MG PO ×2 (16:29→21:29)
[2021-09-12] MEDS: Scopolamine 1mg/72hr Patch 1 PATCH TD (16:29)
[2021-09-12] MEDS: Ensure Clear 120 ML Liquid PO (16:31)
[2021-09-12] MEDS: QUEtiapine 100 MG Tablet 300 MG PO (21:29)
[2021-09-12] MEDS: clonazePAM 0.5 MG Tablet PO (21:29)
[2021-09-12] MEDS: amLODIPine 10 MG Tablet PO (21:29)
[2021-09-12] MEDS: Metoprolol(XL)Succ 25 MG Tablet PO (21:30)
[2021-09-12] MEDS: Gabapentin 100 MG Capsule 200 MG PO (21:30)
[2021-09-13 03:10] VITALS: BP 109/85; PULSE 64; RESP 18; TEMP 36.6; O2SAT 97
[2021-09-13] MEDS: Lactated Ringers 1,000 ML 100 ML IV (03:16)
[2021-09-13] MEDS: proCHLORPERazine 10 MG/2 ML Vial 5 MG IV ×3 (03:17→11:50)
[2021-09-13] MEDS: 0.9% Saline Lock 10 ML Syringe IV ×2 (03:17→07:25)
[2021-09-13] MEDS: Gabapentin 100 MG Capsule 200 MG PO (05:44)
[2021-09-13] MEDS: busPIRone 5 MG Tablet 10 MG PO (05:44)
[2021-09-13] MEDS: Acetaminophen 500 MG Tablet 1000 MG PO (05:44)
[2021-09-13] MEDS: clonazePAM 0.5 MG Tablet PO (08:42)
[2021-09-13] MEDS: Ensure Clear 120 ML Liquid PO ×2 (08:42→11:50)
[2021-09-13 08:50] VITALS: BP 124/76; PULSE 95; RESP 16; TEMP 36.8; O2SAT 99
--- NOTE | 2021-09-13 11:00 | PCM.DC ---
Discharge Instructions Diet Discharge Diet: Light diet - advance as tolerated Activity Discharge Activity: Return to Normal Activity and May Not Drive Weight Bearing Status: Weight bearing as tolerated Dressing / Incision Call your doctor if you observe: Fever of 101 or Higher, Coldness, Increased Pain, Numbness or Tingling, Change in Color, Inability to urinate, Inability to have a bowel movement, Shortness of breath, Dizziness, Fainting spells, Swelling in the ankles, Chest pain, Prolonged hiccupping, Increased palpitations (irregular heartbeat), Calf discomfort and Uncontrolled pain Follow Up Care Test Results: Test results from this visit will be discussed in further detail at your follow-up appointment, if applicable. Discharge Plan Admission Admit Date/Time: 09/09/21 20:11 Primary Reason for Your Visit: Intractable nausea and vomiting, functional abdominal pain Attending Provider: Gerard Khan Primary Care Provider: Talia Bateman Consulting Providers: Zaki Hall ; Mindi Singh Discharge Orders/Prescriptions Prescriptions: New sucralfate 1 gram Tablet 1 g PO 1HR_ACHS Qty: 120 RF: 0 buspirone 10 mg tablet 10 mg PO TID Qty: 90 RF: 0 Continued pantoprazole 40 MG tablet 40 mg PO BID RF: 0 metoprolol succinate 25 MG tablet 25 mg PO QHS RF: 0 amlodipine 10 mg tablet 10 mg PO QHS RF: 0 gabapentin 400 mg capsule 400 mg PO QHS 30 Days Qty: 30 RF: 1 quetiapine [Seroquel] 300 mg Tablet 300 mg PO QHS RF: 0 ondansetron 8 mg tablet,disintegrating 8 mg PO Q8H PRN (Reason: nausea and vomiting) Qty: 90 RF: 0 Changed benazepril 10 mg tablet 5 mg PO QHS Qty: 0 RF: 0 Discontinued clonazepam [Klonopin] 1 mg tablet 1 mg PO BID 30 Days Qty: 60 RF: 1 Referrals / Follow Up: FriendBlake DO [STAFF PHYSICIAN] - Within 2 Weeks (FOR Functional abdominal pain/cyclical vomiting syndrome) Talia Bateman PA [Primary Care Provider] - Disposition Disposition (needs filled in before D/C Order can be placed): Home, Self Care
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
[2021-09-13 12:24] VITALS: BP 126/95; PULSE 84; RESP 16; TEMP 36.7; O2SAT 99
== END 2021-09-13 12:46 | disposition home or self-care (01) | DRG 393 ==
LOC: ED 20:14 → MS3 20:31
PROVIDERS: Internal Medicine; Admitting Provider Hospitalist; Emergency Provider Emergency Medicine; PCP Physician Assistant; Visit Provider Internal Medicine
DX: R11.15 Cyclical vomiting syndrome unrelated to migraine (principal); E43 Unspecified severe protein-calorie malnutrition; N17.9 Acute kidney failure, unspecified; E87.2 Acidosis; E86.0 Dehydration; I10 Essential (primary) hypertension; E78.49 Other hyperlipidemia; E80.7 Disorder of bilirubin metabolism, unspecified; K57.30 Diverticulosis of large intestine without perforation or abscess without bleeding; N20.0 Calculus of kidney; F90.9 Attention-deficit hyperactivity disorder, unspecified type; F43.10 Post-traumatic stress disorder, unspecified; Z80.0 Family history of malignant neoplasm of digestive organs; Z60.9 Problem related to social environment, unspecified; R73.9 Hyperglycemia, unspecified; K21.00 Gastro-esophageal reflux disease with esophagitis, without bleeding; F32.A Depression, unspecified
CPT/HCPCS: 36415; 74176; 80048; 80053; 80076; 81001; 82247; 82248; 83036; 83690; 85025; 97802; 97803; 99284; J7030; J7120; A4216; J2405

== ENCOUNTER → 2021-10-24 | Outpatient (CLI) | payer MEDICARE, SELFPAY ==
--- NOTE | 2021-10-24 15:09 | MRI_ITS ---
STUDY: MR MRCP WITHOUT CONTRAST REASON FOR EXAM: Male, 41 years old. suspect pancreatic origin for n/v TECHNIQUE: Standard MRCP technique was utilized. 3-D postprocessing images were reviewed. COMPARISON: None. FINDINGS: Gall Bladder: Gall bladder is surgically absent. Cystic duct: Normal with no demonstrated fixed filling defect. Intrahepatic ducts: Normal visualized intrahepatic ducts with no demonstrated fixed filling defect, dilation or stricture. Common hepatic duct: Normal with no demonstrated fixed filling defect, dilation or stricture. Common bile duct: Normal with no demonstrated fixed filling defect, dilation or stricture. Pancreatic duct: Normal with no demonstrated fixed filling defect, dilation or stricture. Other: Liver is enlarged measuring 21 cm in craniocaudal dimension. Simple 1 cm cyst in the left upper renal pole. 1.4 cm T1 isointense/T2 hyperintense lesion in the inferomedial aspect of the spleen. MRI/MRCP Abdomen without Contrast IMPRESSION: Normal intra and extrahepatic biliary ducts. Normal pancreas. Hepatomegaly. 1.4 cm T1 isointense/T2 hyperintense lesion in the inferomedial aspect of the spleen is indeterminate. One possible etiology is a hemangioma. Electronically Signed: Zeb Ortiz MD at 16:52 EDT ,
== END | disposition home or self-care (01) ==
LOC: MRI 15:09
PROVIDERS: PCP Physician Assistant; Visit Provider Internal Medicine Gastroenterology
DX: R11.2 Nausea with vomiting, unspecified (principal)
CPT/HCPCS: 74181

== ENCOUNTER → 2021-11-15 | Outpatient (CLI) | payer MEDICARE, MEDICAID, SELFPAY ==
--- NOTE | 2021-11-15 10:05 | US_ITS ---
STUDY: ABDOMINAL ULTRASOUND - RIGHT UPPER QUADRANT REASON FOR VISIT: Male, 41 years old Eval for fibrosis -- HEPATOMEGALY TECHNIQUE: Ultrasound evaluation of the right upper quadrant was performed with real-time and static mauro-scale imaging. TECHNICAL QUALITY: Adequate. COMPARISON: None. FINDINGS: Liver: The liver is mildly enlarged and measures 17.9 cm. There is increased echogenicity consistent with fatty infiltration. The bile ducts are within normal limits. There is hepatic color flow. The direction of portal flow is hepatopetal. There is no demonstrated mass lesion. Gallbladder: The patient is status post cholecystectomy. Common Bile Duct (C.B.D.): The common bile duct measures 4.5 mm. Pancreas: Normal size of the head, body and tail of the pancreas. There is normal echogenicity of the pancreas. There is no demonstrated pancreatic mass or cyst. Right Kidney: Normal size of the right kidney. The right kidney measures 10.9 cm x 5.1 cm x 4.7 cm. Normal renal cortex. The right cortex measures 1.6 cm. There is no demonstrated renal mass or cyst. There is no right hydronephrosis. US/Abdomen Limited IMPRESSION: Mild hepatomegaly and fatty infiltration the liver. Status post cholecystectomy. Electronically Signed: Kofi Johnson MD at 11:56 EDT ,
--- NOTE | 2021-11-15 10:06 | US_ITS ---
STUDY: ABDOMINAL ULTRASOUND - ELASTOGRAPHY REASON FOR VISIT: Male, 41 years old. Fatty infiltration of the liver. TECHNIQUE: Liver stiffness measurements were obtained on a setObject RS 85 ultrasound machine using a CA 1-7 probe following the SRU guidelines. 3 measurements were obtained using a 2-D-SWE method. The IQR/M was 19% suggesting a quality data set. TECHNICAL QUALITY: Adequate. COMPARISON: Comparison is made with prior study done earlier in the day. FINDINGS: Liver: Fatty infiltration of the liver. Median liver stiffness measured 7.3 kPa. US/Elastography Parenchyma/Organ IMPRESSION: Liver stiffness measures 7.3 kPa compatible with F2-F3 (Mild to moderate liver fibrosis) Metavir score. Electronically Signed: Kofi Johnson MD at 11:57 EDT ,
== END | disposition home or self-care (01) ==
LOC: US 10:02
PROVIDERS: PCP Physician Assistant; Referring Provider Internal Medicine Gastroenterology; Visit Provider Internal Medicine Gastroenterology
DX: R16.0 Hepatomegaly, not elsewhere classified (principal); K76.0 Fatty (change of) liver, not elsewhere classified; Z90.49 Acquired absence of other specified parts of digestive tract
CPT/HCPCS: 76705; 76981

== ENCOUNTER 2021-12-19 08:12 | Emergency (ER) | payer MEDICARE, MEDICAID, SELFPAY ==
[2021-12-19 08:13] VITALS: BP 125/81; PULSE 118; RESP 18; TEMP 36.4; O2SAT 96; BMI 21.8
--- NOTE | 2021-12-19 08:21 | EDS_ITS ---
HPI History of Present Illness Chief Complaint: Abd Pain Informant: patient Narrative Narrative: -year-old male presenting to the emergency department chief complaint of vomiting and dehydration. Patient states that on Sunday he began to vomit. He states that on Sunday with the help of some Zofran he got at home but today despite drinking 3 bottles of Pedialyte he still has not urinated and feels dehydrated. He notes chills but no fever. He denies any bowel movements over the past couple days. He states that he feels something squeezing his kidneys and so that is why he is feeling dehydrated. He notes his abdomen is sore. The patient is currently following with Dr. Dailey. It was felt in the past that he could have cyclic vomiting syndrome. He states that he is supposed to have a capsule endoscopy soon. [facility] Medical History Abdominal pain ADHD (attention deficit hyperactivity disorder) Anxiety disorder Benign essential HTN Bipolar 1 disorder Cannabis-related disorder Chronic cough Chronic post-traumatic stress disorder COVID Dehydration Esophageal reflux Familial combined hyperlipidemia Gastric reflux Gilbert syndrome Hepatomegaly Hiatal hernia History of diverticulitis History of echocardiogram History of edema History of hiatal hernia History of IBS History of steroid therapy History of stress test HTN (hypertension) Hypokalemia Hypomagnesemia Hypophosphatemia IBS (irritable bowel syndrome) Intractable nausea and vomiting Nephrolithiasis Smoker Social anxiety disorder Tobacco abuse Vertigo, intermittent Wears dentures Wears glasses Home Medications metoprolol succinate 25 mg tablet,extended release 24 hr 25 mg PO QHS 05/21/20 [History Last Taken Unknown] pantoprazole 40 mg tablet,delayed release 40 mg PO BID 05/21/20 [History Last Taken Unknown] amlodipine 10 mg tablet 10 mg PO QHS 01/31/21 [History Last Taken Unknown] gabapentin 400 mg capsule 400 mg PO QHS 30 days #30 caps 04/20/21 [Rx Last Taken Unknown] quetiapine 300 mg tablet (Seroquel) 300 mg PO QHS 04/20/21 [History Last Taken Unknown] ondansetron 8 mg disintegrating tablet 8 mg PO Q8H PRN nausea and vomiting #90 tabs 08/24/21 [Rx Last Taken Unknown] benazepril 10 mg tablet 5 mg PO QHS #0 tabs 09/13/21 [Rx Last Taken Unknown] buspirone 10 mg tablet 10 mg PO TID #90 tabs 09/13/21 [Rx Last Taken Unknown] Allergy/AdvReac Type Severity Reaction Status Date / Time ciprofloxacin AdvReac Upset Verified 12/19/21 08:15 Stomach doxycycline AdvReac Upset Verified 12/19/21 08:15 Stomach metronidazole [From Flagyl] AdvReac Upset Verified 12/19/21 08:15 Stomach Family History Aunt Colon cancer Father Diabetes Hypertension Mother High cholesterol Surgical History History of esophagogastroduodenoscopy (EGD) History of esophagogastroduodenoscopy (EGD) History of incision and drainage S/P cholecystectomy S/P colonoscopy S/P inguinal hernia repair S/P orchiopexy S/P right knee surgery S/P vasectomy Social History Smoking Status: Current every day smoker tobacco type: cigarettes second hand exposure: Yes alcohol intake: never substance use type: does not use caffeine: Yes what type of physical activity do you participate in: none frequency: does not exercise seatbelt use: always ROS ROS ED ROS Narrative Lightheadedness Constitutional Constitutional ED: Denies chills or weight loss Eyes Eyes: Denies change in vision or diplopia ENT ENT ED: Denies ear pain, rhinorrhea or sore throat Cardiovascular Cardiovascular: Reports racing heartbeat; Denies chest pain, orthopnea or palpitations Respiratory/Chest Respiratory/Chest: Denies cough, dyspnea or orthopnea Gastrointestinal Gastrointestinal: Reports abdominal pain, nausea and vomiting; Denies diarrhea Genitourinary Genitourinary ED: Denies dysuria, hematuria or urinary frequency Musculoskeletal Musculoskeletal: Reports back pain and myalgias; Denies arthralgias Integumentary Denies abscess or rash Neurologic Neurologic: Denies headache(s) or weakness Psychiatric Psychiatric: Denies anxiety, depression, suicidal ideation or suicidal thoughts Endocrine Endocrinology: Denies polydipsia, polyphagia or polyuria Allergic/Immunologic Allergic/Immunologic ED: Denies mouth swelling, tongue swelling or urticaria EXAM Physical Exam Const Vital Signs: 12/19/21 08:13 12/19/21 10:25 Temperature 97.6 F L Temperature Source Temporal Pulse Rate 118 H 71 Respiratory Rate 18 20 H Blood Pressure 125/81 H 125/86 H Blood Pressure Mean 95 99 Pulse Ox 96 98 Oxygen Delivery Method Room Air Room Air Positive well nourished and well developed General Appearance ED: well developed HEENT Reports normocephalic, head/scalp atraumatic and dry mucous membranes Mouth ED: Yes dry mucous membranes Mouth: dry mucous membranes Eyes PERRL and EOMs intact bilaterally Neck no lymphadenopathy, supple and no JVD Resp normal respiratory effort and clear to auscultation bilaterally Cardio regular rate, regular rhythm and no murmurs GI Inspection: Negative for abdominal distention Auscultation: normoactive bowel sounds Palpation: soft and tender other (Diffuse tenderness to palpation); Negative for guarding or rebound tenderness present Back/Spine normal ROM General Back: CVA tenderness bilateral Extremity normal to inspection General Extremety ED: Negative for edema General Extremity: Negative for edema Neuro oriented x3 and CN's II-XII intact bilaterally Sensorium / Orientation: alert Motor Exam: strength 5/5 throughout Psych Mood & Affect: anxious; Negative for depressed or tearful Skin no rashes or lesions noted and no wounds MDM MDM MDM Narrative Medical decision making narrative: White count is 11.7. The creatinine 1.25 with a BUN of 21. Sodium potassium are within normal limits. Anion gap is 8 with a CO2 of 21. Lipase 218. Patient received a liter of IV fluids and Zofran. He also received a milligram of Ativan. He is doing better and would like to go home to rest. Lab Data Attestation: I reviewed the patient's lab results. Labs: Laboratory Results - last 24 hr 12/19/21 12/19/21 08:10 08:10 WBC 11.7 H RBC 5.15 Hgb 15.3 Hct 44.2 MCV 85.8 MCH 29.7 MCHC 34.6 RDW Std Deviation 42.9 RDW Coeff of Seymour 13.8 Plt Count 239 MPV 11.9 Immature Gran % (Auto) 0.600 Neut % (Auto) 75.7 H Lymph % (Auto) 15.2 L Baxter % (Auto) 7.3 Eos % (Auto) 0.9 Baso % (Auto) 0.3 Absolute Neuts (auto) 8.9 H Absolute Lymphs (auto) 1.78 Nucleated RBC % 0 Sodium 137 Potassium 4.0 Chloride 108 H Carbon Dioxide 21.0 Anion Gap 8 BUN 21 H Creatinine 1.25 Estim Creat Clear Calc 83.11 Est GFR (MDRD) Af Amer 81 Est GFR (MDRD) Non-Af 67 BUN/Creatinine Ratio 16.8 Glucose 113 H Calcium 9.3 Total Bilirubin 1.50 H Direct Bilirubin 0.26 AST 20 ALT 29 Alkaline Phosphatase 99 Total Protein 7.8 Albumin 4.3 Globulin 3.5 Lipase 218 Discharge Plan Triage Chief Complaint: Abd Pain ED Provider: Des Ku Dx/Rx/DC Orders Clinical Impression: Nausea and vomiting, Acute dehydration Instructions: ED Vomiting (Adult) Prescriptions: No Action pantoprazole 40 MG tablet 40 mg PO BID metoprolol succinate 25 MG tablet 25 mg PO QHS amlodipine 10 mg tablet 10 mg PO QHS gabapentin 400 mg capsule 400 mg PO QHS 30 Days Qty: 30 1RF quetiapine [Seroquel] 300 mg Tablet 300 mg PO QHS buspirone 10 mg tablet 10 mg PO TID Qty: 90 0RF benazepril 10 mg tablet 5 mg PO QHS Qty: 0 0RF Rx Instructions: Start after 3 days ondansetron 8 mg tablet,disintegrating 8 mg PO Q8H PRN (Reason: nausea and vomiting) Qty: 90 0RF Primary Care Provider: Talia Bateman Referrals: Talia Bateman, HALEY [Primary Care Provider] - As Needed Disposition Disposition: Home, Self Care
[2021-12-19] MEDS: Ondansetron 4 MG/2 ML Vial IV (08:40)
[2021-12-19] MEDS: 0.9% Normal Saline 1,000 ML 1000 ML IV (08:40)
[2021-12-19 09:04] LABS: Absolute Lymphocyte Count 1.78 X10^3/uL (0.83-4.51); Absolute Neutrophil Count 8.9 X10^3/uL (2.0-7.7); Basophil# 0.04 X10^3/uL; Basophil% 0.3 % (0-1); Eosinophil# 0.11 X10^3/uL; Eosinophils% 0.9 % (0-5); Hematocrit 44.2 % (40-54); Hemoglobin 15.3 g/dL (13.0-16.5); Lymphocyte # 1.78 X10^3/ul (0.83-4.51); Lymphocyte % 15.2 % (19-41); Mean Corp Hgb Conc 34.6 g/dL (32-36); Mean Corpuscular Hgb 29.7 pg (27.0-32.0); Mean Corpuscular Volume 85.8 fL (80-94); Mean Platelet Vol. 11.9 fl (6.2-12.0); Monocyte# 0.85 X10^3/uL; Monocyte% 7.3 % (0-10); NRBC Flagged by Analyzer 0 % (0-5); Neutrophil # 8.87 X10^3/uL (2.7-7.7); Neutrophil % 75.7 % (47-70); Platelet Count 239 K/mm3 (150-450); RBC Distribution Width CV 13.8 % (11.6-14.6); RBC Distribution Width SD 42.9 fl (35.1-43.9); Red Blood Count 5.15 M/mm3 (4.6-6.2); White Blood Count 11.7 K/mm3 (4.4-11.0)
[2021-12-19 09:23] LABS: AST(SGOT) 20 U/L (15-37); Alanine Aminotransfer ALT/SGPT 29 U/L (16-61); Albumin, Serum 4.3 g/dL (3.2-5.0); Alkaline Phosphatase 99 U/L (45-117); Anion Gap 8 (5-15); BUN 21 mg/dL (7-18); BUN/Creat Ratio 16.8 RATIO (10-20); Bilirubin, Direct 0.26 mg/dL (0.00-0.30); Calcium,Total 9.3 mg/dL (8.5-10.1); Chloride 108 mmol/L (98-107); Creatinine, Serum 1.25 mg/dL (0.70-1.30); EST Glomerular Filtration Rate 67 mL/min (>60); Est Glom Filt Rate - Afr Amer 81 mL/min (>60); Estimated Creatinine Clearance 83.11 ml/min; Globulin 3.5 g/dL (2.2-4.2); Glucose 113 mg/dL (74-106); Lipase 218 U/L (73-393); Protein, Total 7.8 g/dL (6.4-8.2); Sodium Level 137 mmol/L (136-145)
[2021-12-19] MEDS: LORazepam 2 MG/ML Syringe 1 MG IV (10:09)
[2021-12-19 10:25] VITALS: BP 125/86; PULSE 71; RESP 20; O2SAT 98
[2021-12-19 11:18] VITALS: BP 126/102; PULSE 85; RESP 20; O2SAT 96
== END 2021-12-19 11:20 | disposition home or self-care (01) ==
PROVIDERS: Emergency Provider Emergency Medicine; PCP Physician Assistant; Visit Provider Emergency Medicine
DX: E86.0 Dehydration (principal); F31.9 Bipolar disorder, unspecified; R10.9 Unspecified abdominal pain; R11.2 Nausea with vomiting, unspecified; I10 Essential (primary) hypertension; E78.49 Other hyperlipidemia; F17.210 Nicotine dependence, cigarettes, uncomplicated; Z79.899 Other long term (current) drug therapy
CPT/HCPCS: 80048; 80076; 83690; 85025; 87811; 96361; 96374; 96375; 99283; J7030; A4216; J2405

== ENCOUNTER 2022-07-20 15:19 | Inpatient (IN) | payer MEDICARE, MEDICAID, SELFPAY ==
[2022-07-20 15:19] VITALS: BP 148/79; PULSE 108; RESP 20; TEMP 36.2; O2SAT 97; BMI 23.1
--- NOTE | 2022-07-20 16:00 | EDS_ITS ---
HPI HPI - GI History of Present Illness Chief Complaint: Nausea/Vomiting Informant: patient Abdominal Pain/Flank Pain Onset: Yesterday Context: Gradual Onset Timing: Continuous Quality: Stabbing and - (Squeezing) Location: LUQ and Left Flank Worsened by: Nothing Nausea/Vomiting/Emesis GI Symptom: Positive for Nausea and Vomiting Quality: Positive for Nonbilious and Blood streaks; Negative for Coffee ground or Hematemesis Diarrhea/Melena/Hematochezia GI Symptom: Negative for Diarrhea, Melena or Hematochezia Associated Symptoms Associated Symptoms: Negative for Dysuria, Frequency or Hematuria Narrative Narrative: Patient presents with abdominal pain, nausea, and vomiting that became worse tod ay. Patient states he started feeling nauseated last evening. Patient states that vomiting started at 6 AM today. Patient states he has pain over his left upper abdomen and in his left flank. Patient describes his pain as stabbing and squeezing. Patient states that he has had some streaks of blood in his emesis. Patient denies any coffee-ground emesis. Patient states vomiting makes his pain worse. Patient denies any diarrhea, melena, or hematochezia. Patient denies any dysuria, frequency, or hematuria. Patient states he has not had any urine output today. [facility] Medical History Abdominal pain ADHD (attention deficit hyperactivity disorder) Anxiety disorder Benign essential HTN Bipolar 1 disorder Cannabis-related disorder Chronic cough Chronic post-traumatic stress disorder COVID Dehydration Esophageal reflux Familial combined hyperlipidemia Gastric reflux Gilbert syndrome Hepatomegaly Hiatal hernia History of diverticulitis History of echocardiogram History of edema History of hiatal hernia History of IBS History of steroid therapy History of stress test HTN (hypertension) Hypokalemia Hypomagnesemia Hypophosphatemia IBS (irritable bowel syndrome) Intractable nausea and vomiting Liver fibrosis Nephrolithiasis Smoker Social anxiety disorder Tobacco abuse Vertigo, intermittent Wears dentures Wears glasses Home Medications metoprolol succinate 25 mg tablet,extended release 24 hr 25 mg PO QHS 05/21/20 [History Last Taken Unknown] pantoprazole 40 mg tablet,delayed release 40 mg PO BID 05/21/20 [History Last Taken Unknown] amlodipine 10 mg tablet 10 mg PO QHS 01/31/21 [History Last Taken Unknown] gabapentin 400 mg capsule 400 mg PO QHS 30 days #30 caps 12/22/21 [Rx Last Taken Unknown] quetiapine 300 mg tablet (Seroquel) 300 mg PO QHS 04/20/21 [History Last Taken Unknown] benazepril 10 mg tablet 5 mg PO QHS #0 tabs 09/13/21 [Rx Last Taken Unknown] buspirone 10 mg tablet 10 mg PO TID #90 tabs 09/13/21 [Rx Last Taken Unknown] promethazine 25 mg rectal suppository 25 mg [place] QHS #12 ea 02/03/22 [Rx Last Taken Unknown] ondansetron 8 mg disintegrating tablet 8 mg PO Q8H PRN nausea and vomiting #90 tabs 05/04/22 [Rx Last Taken Unknown] Allergy/AdvReac Type Severity Reaction Status Date / Time ciprofloxacin AdvReac Upset Verified 07/20/22 15:22 Stomach doxycycline AdvReac Upset Verified 07/20/22 15:22 Stomach metronidazole [From Flagyl] AdvReac Upset Verified 07/20/22 15:22 Stomach Family History Aunt Colon cancer Father Diabetes Hypertension Mother High cholesterol Surgical History History of esophagogastroduodenoscopy (EGD) History of esophagogastroduodenoscopy (EGD) History of hernia surgery History of incision and drainage S/P cholecystectomy S/P colonoscopy S/P inguinal hernia repair S/P orchiopexy S/P right knee surgery S/P vasectomy Social History Smoking Status: Current every day smoker tobacco type: cigarettes second hand exposure: Yes alcohol intake: never substance use type: does not use caffeine: Yes what type of physical activity do you participate in: none frequency: does not exercise seatbelt use: always ROS ROS ED Constitutional Constitutional ED: Reports chills and subjective; Denies fever(s) Eyes Eyes: Denies blurry vision or change in vision ENT ENT ED: Denies rhinorrhea or sore throat Cardiovascular Cardiovascular: Denies chest pain or palpitations Respiratory/Chest Respiratory/Chest: Denies cough or dyspnea Gastrointestinal Gastrointestinal: Reports abdominal pain, nausea and vomiting; Denies diarrhea or melena Genitourinary Genitourinary ED: Denies dysuria or hematuria Musculoskeletal Musculoskeletal: Reports back pain; Denies neck pain Integumentary Denies abscess or rash Neurologic Neurologic: Reports headache(s); Denies weakness Allergic/Immunologic Allergic/Immunologic ED: Denies mouth swelling or urticaria EXAM Physical Exam Const Vital Signs: 07/20/22 15:19 07/20/22 18:19 07/20/22 20:00 Temperature 97.1 F L Temperature Source Temporal Pulse Rate 108 H 130 H Respiratory Rate 20 H 20 H 18 Blood Pressure 148/79 H 107/74 Blood Pressure Mean 102 85 Pulse Ox 97 99 Oxygen Delivery Method Room Air Room Air Positive well nourished and well developed General Appearance ED: well developed HEENT Reports moist mucous membranes Neck supple and no JVD Resp normal respiratory effort and clear to auscultation bilaterally Cardio regular rate, regular rhythm and no murmurs GI normal to inspection, nondistended, normoactive bowel sounds Palpation: soft and tender epigastric and LUQ; Negative for guarding or rebound tenderness present Back/Spine General Back: CVA tenderness left Extremity normal to inspection General Extremety ED: Negative for edema or tenderness General Extremity: Negative for edema Neuro oriented x3, CN's II-XII intact bilaterally and no sensory deficits noted Sensorium / Orientation: alert Motor Exam: strength 5/5 throughout Psych mental status grossly normal Skin no rashes or lesions noted MDM MDM MDM Narrative Medical decision making narrative: Differential diagnosis includes gastroenteritis, gastritis, pancreatitis, ureteral calculus, pyelonephritis, bowel obstruction, bowel perforation, and urinary tract infection. CBC will be obtained to assess for leukocytosis and anemia. Comprehensive metabolic profile will be obtained to assess for renal function, hepatic function, and electrolyte abnormality. Lipase will be obtained to assess for pancreatitis. Urinalysis will be obtained to assess for urinary tract infection. CT scan of the abdomen pelvis will be obtained to assess for ureteral calculus, bowel obstruction, perforation, and pyelonephritis. Lab Data Attestation: I reviewed the patient's lab results. Lab results narrative: CBC was reviewed. There is a leukocytosis of 22.0. Hemoglobin was 17.0. Comprehensive metabolic profile was reviewed. Creatinine was elevated at 2.25. BUN was normal at 17. Glucose was 208. CO2 was low at 17. Urinalysis was reviewed. There is no evidence of urinary tract infection or hematuria. Labs: Laboratory Results - last 24 hr 07/20/22 07/20/22 07/20/22 16:20 16:20 19:50 WBC 22.0 H RBC 5.82 Hgb 17.0 H Hct 48.7 MCV 83.7 MCH 29.2 MCHC 34.9 RDW Std Deviation 40.3 RDW Coeff of Seymour 13.2 Plt Count 306 MPV 12.2 H Immature Gran % (Auto) 0.800 Neut % (Auto) 90.1 H Lymph % (Auto) 4.9 L [place] % (Auto) 3.9 Eos % (Auto) 0.0 Baso % (Auto) 0.3 Absolute Neuts (auto) 19.9 H Absolute Lymphs (auto) 1.07 Nucleated RBC % 0 Sodium 137 Potassium 4.5 Chloride 106 Carbon Dioxide 17.0 L Anion Gap 14 BUN 17 Creatinine 2.25 H Estim Creat Clear Calc 48.38 Est GFR (MDRD) Af Amer 41 L Est GFR (MDRD) Non-Af 34 L BUN/Creatinine Ratio 7.6 L Glucose 208 H Calcium 11.1 H Total Bilirubin 1.20 H AST 16 ALT 23 Alkaline Phosphatase 112 Total Protein 9.4 H Albumin 5.6 H Globulin 3.8 Albumin/Globulin Ratio 1.5 Lipase 177 Urine Color Yellow Urine Clarity Clear Urine pH 7.0 Ur Specific [place] 1.010 Urine Protein 30 H Urine Glucose (UA) Normal Urine Ketones 15 H Urine Occult Blood 10 H Urine Nitrite Negative Urine Bilirubin Negative Urine Urobilinogen Normal Ur Leukocyte Esterase Negative Urine RBC 0-5 SEEN Urine WBC 0 SEEN Ur Squamous Epith Cells 0 SEEN Urine Bacteria 0 SEEN Hyaline Casts 10-25 SEEN Urine Mucus 0 SEEN Radiography Diagnostic Testing: Clinical Impression(s) from Imaging Studies Abdomen/Pelvis CT 07/20/22 16:08 IMPRESSION: No acute abnormality or major interval change. Electronically Signed: Naeem Sanchez DO at 16:47 EDT Reading Location ID and State: [facility] / [place] Tel [phone], Service support , CT scan of the abdomen pelvis was obtained. There is no acute abnormality noted. This was interpreted by the radiologist and was also independently reviewed by myself. Management Discussion w/another healthcare provider: Hospitalist Treatment and Re-Evaluation :: Patient was given IV fluids, Zofran, and morphine. Patient had minimal improvement with this. Patient was given Benadryl and Thorazine. Patient was given a dose of Pepcid. Patient was also given a dose of Ativan. Patient still was having some nausea and vomiting after this. Patient was given a dose of Phenergan. Patient was given more IV fluids. Patient was advised of his findings. Patient was advised of need for admission. Patient is agreeable with this. Case was discussed with the hospitalist. She will admit the patient to her service. Patient understood and was agreeable with the plan. All questions were answered. Discharge Plan Triage Chief Complaint: Nausea/Vomiting ED Provider: Kevin Hatfield Dx/Rx/DC Orders Clinical Impression: Acute kidney injury, Leukocytosis, Dehydration, Intractable nausea and vomiting Prescriptions: No Action promethazine 25 mg suppository 25 mg [place] QHS Qty: 12 6RF ondansetron 8 mg tablet,disintegrating 8 mg PO Q8H PRN (Reason: nausea and vomiting) Qty: 90 3RF pantoprazole 40 MG tablet 40 mg PO BID metoprolol succinate 25 MG tablet 25 mg PO QHS amlodipine 10 mg tablet 10 mg PO QHS gabapentin 400 mg capsule 400 mg PO QHS 30 Days Qty: 30 1RF quetiapine [Seroquel] 300 mg Tablet 300 mg PO QHS buspirone 10 mg tablet 10 mg PO TID Qty: 90 0RF benazepril 10 mg tablet 5 mg PO QHS Qty: 0 0RF Rx Instructions: Start after 3 days Primary Care Provider: Talia Bateman Referrals: Talia Bateman PA [Primary Care Provider] - Disposition Disposition: Acute Care [facility]
--- NOTE | 2022-07-20 16:08 | CT_ITS ---
STUDY: CT ABDOMEN AND PELVIS WITHOUT CONTRAST REASON FOR EXAM: Male, 42 years old. Pain. Nausea and vomiting beginning this morning. History of cholecystectomy and herniorrhaphy. RADIATION DOSAGE (If Supplied By Facility): CTDIvol = ( 7.83 ) mGy, DLP = ( 401.21 ) mGycm TECHNIQUE: Transaxial images were obtained from the dome of the diaphragm to the symphysis pubis without oral contrast, and without intravenous contrast. Sagittal and coronal images were reconstructed. Individualized dose optimization techniques were used for this CT. COMPARISON: CT the abdomen and pelvis, September 10, 2021. FINDINGS: The visualized lung bases are unremarkable. The visualized portions of the heart are within normal limits. Normal liver. The gallbladder is absent in keeping with history of cholecystectomy. No biliary ductal abnormality. Normal spleen. Normal pancreas. Normal bilateral adrenal glands. Normal right kidney. There is a 2 mm nonobstructing calculus upper pole calyx. There is a vague hypodensity in the upper pole cortex measuring 1 cm thought to represent a cyst. Minimal bilateral ureters. Normal visualized stomach. Normal small intestine. Normal colon. The appendix is visualized and appears normal. There is diffuse atherosclerotic calcification of the abdominal aorta, without a demonstrated aneurysm. Normal inferior vena cava. Normal retroperitoneum. Urinary bladder is collapsed but grossly unremarkable. Normal size prostate. Phleboliths without lymphadenopathy. No free air or free fluid is seen within the abdominal cavity. Evidence of right inguinal herniorrhaphy. The abdominal wall is otherwise unremarkable. No osseous changes. CT/Abdomen/Pelvis without Cont IMPRESSION: No acute abnormality or major interval change. Electronically Signed: Naeem Sanchez DO at 16:47 EDT ,
[2022-07-20] MEDS: Morphine 4 MG/ML Syringe IV ×2 (16:14→20:30)
[2022-07-20] MEDS: Ondansetron 4 MG/2 ML Vial IV (16:15)
[2022-07-20] MEDS: 0.9% Normal Saline 1,000 ML 1000 ML IV ×3 (16:15→20:30)
[2022-07-20 16:28] LABS: Absolute Lymphocyte Count 1.07 X10^3/uL (0.83-4.51); Absolute Neutrophil Count 19.9 X10^3/uL (2.0-7.7); Basophil# 0.06 X10^3/uL; Basophil% 0.3 % (0-1); Eosinophil# 0.01 X10^3/uL; Hematocrit 48.7 % (40-54); Lymphocyte # 1.07 X10^3/ul (0.83-4.51); Lymphocyte % 4.9 % (19-41); Mean Corp Hgb Conc 34.9 g/dL (32-36); Mean Corpuscular Hgb 29.2 pg (27.0-32.0); Mean Corpuscular Volume 83.7 fL (80-94); Mean Platelet Vol. 12.2 fl (6.2-12.0); Monocyte# 0.85 X10^3/uL; Monocyte% 3.9 % (0-10); NRBC Flagged by Analyzer 0 % (0-5); Neutrophil # 19.85 X10^3/uL (2.7-7.7); Neutrophil % 90.1 % (47-70); Platelet Count 306 K/mm3 (150-450); RBC Distribution Width CV 13.2 % (11.6-14.6); RBC Distribution Width SD 40.3 fl (35.1-43.9); Red Blood Count 5.82 M/mm3 (4.6-6.2)
[2022-07-20 16:43] LABS: ALB/GLOB Ratio 1.5 RATIO (0.9-2.4); AST(SGOT) 16 U/L (15-37); Alanine Aminotransfer ALT/SGPT 23 U/L (16-61); Albumin, Serum 5.6 g/dL (3.2-5.0); Alkaline Phosphatase 112 U/L (45-117); Anion Gap 14 (5-15); BUN 17 mg/dL (7-18); BUN/Creat Ratio 7.6 RATIO (10-20); Calcium,Total 11.1 mg/dL (8.5-10.1); Chloride 106 mmol/L (98-107); Creatinine, Serum 2.25 mg/dL (0.70-1.30); EST Glomerular Filtration Rate 34 mL/min (>60); Est Glom Filt Rate - Afr Amer 41 mL/min (>60); Estimated Creatinine Clearance 48.38 ml/min; Globulin 3.8 g/dL (2.2-4.2); Glucose 208 mg/dL (74-106); Lipase 177 U/L (73-393); Potassium 4.5 mmol/L (3.5-5.1); Protein, Total 9.4 g/dL (6.4-8.2); Sodium Level 137 mmol/L (136-145)
[2022-07-20] MEDS: Famotidine 200 MG/20 ML MDV 20 MG in 0.9% Normal Saline (Pres. free 8 ML 300 MG IV (17:14)
[2022-07-20] MEDS: LORazepam 2 MG/ML Syringe 0.5 MG IV (17:16)
[2022-07-20 18:19] VITALS: BP 107/74; PULSE 130; RESP 20; O2SAT 99
[2022-07-20 20:00] VITALS: RESP 18
[2022-07-20 20:00] LABS: Bacteria 0 SEEN /hpf (None Seen); Mucous, Urine 0 SEEN /hpf (<or=2+); Squamous Epithelial Cells - UA 0 SEEN /hpf (0-5); White Blood Cells 0 SEEN /hpf (0-5)
[2022-07-20 20:05] LABS: Color, Urine Yellow (Yellow); Glucose, Dipstick Normal (Normal); Ketone-Dipstick 15 mg/dl (Negative); Leukocyte Esterase-Dipstick Negative /ul (Negative); Nitrite-Dipstick Negative (Negative); Occult Blood-Urine 10 /ul (Negative); Protein-Dipstick 30 mg/dl (Negative); Urine Bilirubin Dipstick Negative (Negative); Urine Clarity Clear (Clear); Urine Urobilinogen Normal (Normal)
[2022-07-20 20:13] LABS: Red Blood Cells-Urine 0-5 SEEN /hpf (0-5)
[2022-07-20 20:14] LABS: Hyaline Cast 10-25 SEEN /lpf (0-5)
[2022-07-20] MEDS: proMETHazine 25 MG/ML Syringe 12.5 MG IM (20:30)
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
[2022-07-20 21:25] VITALS: BP 148/96; PULSE 110; RESP 20; TEMP 36.6; O2SAT 97
[2022-07-20 22:32] VITALS: BMI 23.8
[2022-07-20 22:32] LABS: Magnesium 2.1 mg/dL (1.6-2.6); Phosphorus 2.2 mg/dL (2.5-4.9)
[2022-07-20 22:43] VITALS: BP 110/75; PULSE 99; RESP 16; TEMP 37; O2SAT 97
[2022-07-20] MEDS: 0.9% Normal Saline 1,000 ML 150 ML IV (22:48)
[2022-07-20] MEDS: Heparin Injection (Vial) 5,000 UNIT/ML VIAL 5000 UNIT SC (23:12)
[2022-07-20] MEDS: HYDROmorphone 0.5 MG/0.5 ML SYRINGE IV (23:21)
[2022-07-21] MEDS: Haloperidol Lactate 5 MG/ML Vial IV ×5 (00:09→23:44)
[2022-07-21] MEDS: Ondansetron 4 MG/2 ML Vial IV ×2 (03:17→19:54)
[2022-07-21] MEDS: HYDROmorphone 0.5 MG/0.5 ML SYRINGE IV ×7 (03:17→23:42)
[2022-07-21 04:06] VITALS: BP 132/89; PULSE 94; RESP 18; TEMP 36.4; O2SAT 97
[2022-07-21] MEDS: 0.9% Normal Saline 1,000 ML 150 ML IV ×3 (05:11→18:29)
[2022-07-21 06:00] VITALS: BMI 23.6
[2022-07-21 07:18] LABS: Absolute Lymphocyte Count 1.34 X10^3/uL (0.83-4.51); Absolute Neutrophil Count 15.1 X10^3/uL (2.0-7.7); Basophil# 0.03 X10^3/uL; Basophil% 0.2 % (0-1); Eosinophil# 0.01 X10^3/uL; Eosinophils% 0.1 % (0-5); Hematocrit 40.2 % (40-54); Hemoglobin 13.3 g/dL (13.0-16.5); Lymphocyte # 1.34 X10^3/ul (0.83-4.51); Lymphocyte % 7.5 % (19-41); Mean Corp Hgb Conc 33.1 g/dL (32-36); Mean Corpuscular Hgb 29.1 pg (27.0-32.0); Mean Platelet Vol. 12.4 fl (6.2-12.0); Monocyte# 1.23 X10^3/uL; Monocyte% 6.9 % (0-10); NRBC Flagged by Analyzer 0 % (0-5); Neutrophil # 15.14 X10^3/uL (2.7-7.7); Neutrophil % 84.7 % (47-70); Platelet Count 209 K/mm3 (150-450); RBC Distribution Width CV 13.5 % (11.6-14.6); RBC Distribution Width SD 43.5 fl (35.1-43.9); Red Blood Count 4.57 M/mm3 (4.6-6.2); White Blood Count 17.9 K/mm3 (4.4-11.0)
[2022-07-21 07:42] LABS: ALB/GLOB Ratio 1.4 RATIO (0.9-2.4); AST(SGOT) 14 U/L (15-37); Alanine Aminotransfer ALT/SGPT 18 U/L (16-61); Albumin, Serum 4.1 g/dL (3.2-5.0); Alkaline Phosphatase 79 U/L (45-117); Anion Gap 11 (5-15); BUN 15 mg/dL (7-18); BUN/Creat Ratio 14.7 RATIO (10-20); Calcium,Total 8.7 mg/dL (8.5-10.1); Chloride 108 mmol/L (98-107); Creatinine, Serum 1.02 mg/dL (0.70-1.30); EST Glomerular Filtration Rate 84 mL/min (>60); Est Glom Filt Rate - Afr Amer 102 mL/min (>60); Estimated Creatinine Clearance 107.45 ml/min; Glucose 117 mg/dL (74-106); Potassium 4.1 mmol/L (3.5-5.1); Protein, Total 7.1 g/dL (6.4-8.2); Sodium Level 140 mmol/L (136-145)
--- NOTE | 2022-07-21 08:00 | EKG12_ITS ---
Test Reason : A.M. EKG Blood Pressure : / mmHG Vent. Rate : 084 BPM Atrial Rate : 084 BPM P-R Int : 130 ms QRS Dur : 104 ms QT Int : 386 ms P-R-T Axes : 076 070 062 degrees QTc Int : 456 ms Normal sinus rhythm with sinus arrhythmia Normal ECG When compared with ECG of 21-MAY-2020 09:50, No significant change was found Confirmed by RAYSA ALVES, MARY ([id number]), commissioning editor SARINA PICKETT ([id number]) on 07/25/2022 9:00:58 AM Referred By: DUSTIN Confirmed By:MARY TABARES MD
[2022-07-21 08:25] VITALS: O2SAT 97
[2022-07-21 10:54] VITALS: BP 111/81; PULSE 85; RESP 16; TEMP 37.1; O2SAT 97
--- NOTE | 2022-07-21 11:25 | CASEMGMT ---
DIRK VILLALOBOS DC Planning Assessment: Face to Face with patient for initial transition planning/care coordination assessment.?DIRK VILLALOBOS introduced self and role at [facility], pt voices understanding and is agreeable to participating in assessment. Care providers, pharmacy,?and demographics verified. Admitting Dx: Intractable n/v, abd pain? PCP: HALEY Radford/ Dr. Ashton Specialists: Friend (GI-has appointment on Sunday), Stinger ([facility] Psychiatrist) Preferred Pharmacy: [facility] Insurance: [facility] A/B, [facility] Prescription Benefit:?yes Living Will/HPOA: none LNOK: Dorothy Living Arrangements: Pt lives in a two story home with his and his father who is currently not well and they are caring for. Pt denies any difficulty with his stairs. Pt is independent with all ADLs including self care and household tasks. Transportation: pt drives and denies any concerns with transportation. DME/HHC/SNF: pt denies ? Plan: Pt plans to return home at discharge so he can continue to assist in the care of his father. Pt states he quit smoking 6 months ago and expressed concern regarding the treatment of his anxiety. Discussed with his nurse Jaimie who states she has contacted Dr. Borrero in follow-up. Will continue to monitor and assist with DC needs as identified. Candice Rodriguez RN CM
[2022-07-21] MEDS: FLU VACC QS2022-23(6MOS UP)/PF 60 MCG/0.5 ML SYRINGE IM (11:42)
[2022-07-21] MEDS: Heparin Injection (Vial) 5,000 UNIT/ML VIAL 5000 UNIT SC ×2 (11:43→22:41)
--- NOTE | 2022-07-21 13:46 | CHAPLAIN ---
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 ___ Manager Massage Department ___ Other (describe below) Sacrament/Intervention ___ Active listening ___ Anointing ___ Judaism ___ Bereavement ___ Communion ___ Zahira exploration ___ ___ Life review _x__ Prayer ___ Reconciliation ___ Sacrament of Sick _x__ Supportive presence ___ Wedding ___ Other (describe below) Pastoral Comments patient has been seen in previous admission and had sought for spiritual care support; pt is found in bed and speaks I don't feel good at all right now; offer of presence, prayer, or other support; pt responds 'please pray for me'; offer of ongoing or future support as needed or desired; pt expresses thank you, thank you,;
--- NOTE | 2022-07-21 14:58 | PN_ITS ---
Subjective Subjective Patient seen and examined. He was admitted with a complaint of intractable nausea and vomiting. He still states he is having incessant nausea but no vomiting. He is also having left flank pain. He states he has been told he has cannabinoid hyperemesis syndrome but states he last used cannabinoids about a week prior to admission. He denies any diarrhea or fever or chills. Review of systems otherwise negative. Objective Data Objective Data Vital Signs: Vital Signs Temp Pulse Resp BP Pulse Ox O2 Del Method 98.8 F 85 16 111/81 H 97 Room Air 07/21/22 10:54 07/21/22 10:54 07/21/22 10:54 07/21/22 10:54 07/21/22 10:54 07/21/22 10:54 Oxygen Delivery Method Room Air Weight: 184 lb 1.376 oz Body Mass Index (BMI) 23.6 Intake & Output: Intake and Output for Last 24 Hours 07/19/22 07/20/22 07/21/22 23:59 23:59 23:59 Intake Total 3172.1 / 3172.1 2092.5 / 2092.5 Balance 3172.1 / 3172.1 2091. / 2091. Medical Nutrition Assessment Dietitian: Malnutrition Criteria Met Start: 07/21/22 10:11 Freq: Status: Active Protocol: Document 07/21/22 10:11 PARTHA (Rec: 07/21/22 10:11 PARTHA [id number]) Nutrition Malnutrition Evidence of Malnutrition Exists Yes Malnutrition (severe): Chronic Evidenced By Suboptimal Energy Intake ( Severe),Weight Loss (Severe) Clinical Problem Chronic Disease or Condition Related Malnutrition Etiology related to intractable n/v/abd pain and inadequate energy intake Signs/Symptoms as evidenced by unintentional wt loss of 22.2% and <75% po intake in past 6-7 months Status Active Problem Recommendation Dietitian Recommendations/Changes As medically able, rec LEISA to transitional w/ goal of liberal Regular diet w/ 8 oz ensure clear w/ meals tid for increased nutrition if consumed If NPO anticipated to be prolonged, rec consider supplemental nutrition support if in accordance w/ pt/family wishes. Lab / Micro Data Result Diagrams: 07/21/22 06:43 07/21/22 06:43 Labs: Laboratory Results - last 24 hr 07/20/22 16:20: WBC 22.0 H, RBC 5.82, Hgb 17.0 H, Hct 48.7, MCV 83.7, MCH 29.2, MCHC 34.9, RDW Std Deviation 40.3, RDW Coeff of [place]ym[place] 13.2, Plt Count 306, MPV 12.2 H, Immature Gran % (Auto) 0.800, Neut % (Auto) 90.1 H, Lymph % (Auto) 4.9 L , [place] % (Auto) 3.9, Eos % (Auto) 0.0, Baso % (Auto) 0.3, Absolute Neuts (auto) 19.9 H, Absolute Lymphs (auto) 1.07, Nucleated RBC % 0 07/20/22 16:20: Sodium 137, Potassium 4.5, Chloride 106, Carbon Dioxide 17.0 L, Anion Gap 14, BUN 17, Creatinine 2.25 H, Estim Creat Clear Calc 48.38, Est GFR (MDRD) Af Amer 41 L, Est GFR (MDRD) Non-Af 34 L, BUN/Creatinine Ratio 7.6 L, Glucose 208 H, Calcium 11.1 H, Total Bilirubin 1.20 H, AST 16, ALT 23, Alkaline Phosphatase 112, Total Protein 9.4 H, Albumin 5.6 H, Globulin 3.8, Albumin/Globulin Ratio 1.5, Lipase 177 07/20/22 16:20: Phosphorus 2.2 L, Magnesium 2.1 07/20/22 19:50: Urine Color Yellow, Urine Clarity Clear, Urine pH 7.0, Ur Specific [place] 1.010, Urine Protein 30 H, Urine Glucose (UA) Normal, Urine Ketones 15 H, Urine Occult Blood 10 H, Urine Nitrite Negative, Urine Bilirubin Negative, Urine Urobilinogen Normal, Ur Leukocyte Esterase Negative, Urine RBC 0-5 SEEN, Urine WBC 0 SEEN, Ur Squamous Epith Cells 0 SEEN, Urine Bacteria 0 SEEN, Hyaline Casts 10-25 SEEN, Urine Mucus 0 SEEN 07/21/22 06:43: WBC 17.9 H, RBC 4.57 L, Hgb 13.3, Hct 40.2, MCV 88.0 D, MCH 29.1, MCHC 33.1 D, RDW Std Deviation 43.5, RDW Coeff of [place] 13.5, Plt Count 209, MPV 12.4 H, Immature Gran % (Auto) 0.600, Neut % (Auto) 84.7 H, Lymph % (Auto) 7.5 L, [place] % (Auto) 6.9, Eos % (Auto) 0.1, Baso % (Auto) 0.2, Absolute Neuts (auto) 15.1 H, Absolute Lymphs (auto) 1.34, Nucleated RBC % 0 07/21/22 06:43: Sodium 140, Potassium 4.1, Chloride 108 H, Carbon Dioxide 21.0, Anion Gap 11, BUN 15, Creatinine 1.02, Estim Creat Clear Calc 107.45, Est GFR (MDRD) Af Amer 102, Est GFR (MDRD) Non-Af 84, BUN/Creatinine Ratio 14.7, Glucose 117 H, Calcium 8.7, Total Bilirubin 1.20 H, AST 14 L, ALT 18, Alkaline Phosphatase 79, Total Protein 7.1, Albumin 4.1, Globulin 3.0, Albumin/Globulin Ratio 1.4 Radiography Diagnostic Testing: Radiology Impression Abdomen/Pelvis CT 07/20/22 16:08 IMPRESSION: No acute abnormality or major interval change. Electronically Signed: Naeem Sanchez DO at 16:47 EDT Reading Location ID and State: [address] [place] [address] Tel [phone], Service support , Physical Exam Const alert and oriented x3 Constitutional Narrative: In moderate distress due to nausea and abdominal pain. HEENT normocephalic and moist oral mucous membranes Neck no lymphadenopathy and supple Lymph Lymphatic: no lymphadenopathy noted and no lymphedema noted Resp normal respiratory effort, normal air movement and clear to auscultation bilaterally Cardio regular rate, regular rhythm, S1 normal heart sound, S2 normal heart sound and no murmurs GI GI Narrative: minimal generalised tenderness, no guarding or rebound tenderness. No costophrenic angle tenderness Extremity normal capillary refill and no clubbing, cyanosis or edema Skin General Skin Exam: no breakdown and turgor normal Neuro CN's II-XII intact bilaterally, no focal motor deficits and no sensory deficits noted Motor Exam: strength 5/5 throughout Psych thought process normal Attitude: agitated Assessment & Plan Assessment/Plan (1) Acute kidney injury: (2) Abdominal pain: (3) Nausea and vomiting: PLAN: Plan #Intractable nausea and vomiting due to cannabinoid hyperemesis syndrome * still complains of nausea and vomiting. * says he last used cannabis ~ 1 week prior * being hdyrated with IVF * on IV zofran prn * on compazine prn also * if it persists, consult gastroenterology * currently NPO. * on IV PPI * #ZACKARY * Cr was 2.25 on admission. will trend Cr. continue hydration and trend * #Fatty liver: follow up with gastroenterology on outpatient basis #anxiety, depression and bipoalar disorder: on seroquel and buspar #Hypertension: on amlodipine and metoprolol. Benazepril on hold due to ZACKARY. IV hydralazine #GERD: on PPI #History of Gilbert syndrome: Stable. Bilirubin is 1.2. #Nicotine dependence: Counseled to quit. DVT prophylaxis: Heparin Charges/Coding Visit Charges Inpatient E&M: 77438 Subs Hosp L2
[2022-07-21 15:16] VITALS: BP 123/82; PULSE 82; RESP 18; TEMP 36.7; O2SAT 97
[2022-07-21] MEDS: clonazePAM 1 MG Tablet PO (17:08)
[2022-07-21 19:42] VITALS: BP 145/95; PULSE 85; RESP 16; TEMP 36.6; O2SAT 99
[2022-07-21] MEDS: oxyCODONE 5 MG Tablet PO (22:39)
[2022-07-22] MEDS: 0.9% Normal Saline 1,000 ML 150 ML IV (02:13)
[2022-07-22] MEDS: HYDROmorphone 0.5 MG/0.5 ML SYRINGE IV (04:06)
[2022-07-22 04:11] VITALS: BP 118/83; PULSE 98; RESP 18; TEMP 36.6; O2SAT 96
[2022-07-22] MEDS: Haloperidol Lactate 5 MG/ML Vial IV (05:46)
[2022-07-22] MEDS: clonazePAM 1 MG Tablet PO (05:47)
[2022-07-22 06:00] VITALS: BMI 23.8
[2022-07-22] MEDS: Gabapentin 400 MG Capsule PO (06:47)
[2022-07-22 07:22] LABS: Absolute Lymphocyte Count 1.17 X10^3/uL (0.83-4.51); Absolute Neutrophil Count 6.9 X10^3/uL (2.0-7.7); Basophil# 0.02 X10^3/uL; Basophil% 0.2 % (0-1); Eosinophil# 0.01 X10^3/uL; Eosinophils% 0.1 % (0-5); Hematocrit 37.8 % (40-54); Hemoglobin 13.2 g/dL (13.0-16.5); Lymphocyte # 1.17 X10^3/ul (0.83-4.51); Lymphocyte % 13.4 % (19-41); Mean Corp Hgb Conc 34.9 g/dL (32-36); Mean Corpuscular Hgb 29.6 pg (27.0-32.0); Mean Corpuscular Volume 84.8 fL (80-94); Mean Platelet Vol. 12.3 fl (6.2-12.0); Monocyte# 0.57 X10^3/uL; Monocyte% 6.5 % (0-10); NRBC Flagged by Analyzer 0 % (0-5); Neutrophil # 6.91 X10^3/uL (2.7-7.7); Neutrophil % 79.5 % (47-70); Platelet Count 203 K/mm3 (150-450); RBC Distribution Width CV 13.2 % (11.6-14.6); RBC Distribution Width SD 40.7 fl (35.1-43.9); Red Blood Count 4.46 M/mm3 (4.6-6.2); White Blood Count 8.7 K/mm3 (4.4-11.0)
[2022-07-22 07:24] VITALS: O2SAT 95
[2022-07-22 07:34] LABS: Anion Gap 9 (5-15); BUN 11 mg/dL (7-18); BUN/Creat Ratio 12.9 RATIO (10-20); Calcium,Total 8.7 mg/dL (8.5-10.1); Chloride 109 mmol/L (98-107); Creatinine, Serum 0.85 mg/dL (0.70-1.30); EST Glomerular Filtration Rate 104 mL/min (>60); Est Glom Filt Rate - Afr Amer 126 mL/min (>60); Estimated Creatinine Clearance 128.94 ml/min; Glucose 98 mg/dL (74-106); Sodium Level 136 mmol/L (136-145)
[2022-07-22 07:50] VITALS: BP 151/102; PULSE 96; RESP 18; TEMP 36.4; O2SAT 97
[2022-07-22] MEDS: oxyCODONE 5 MG Tablet PO ×2 (09:22→13:31)
[2022-07-22] MEDS: Acetaminophen 325 MG Tablet 650 MG PO (09:22)
--- NOTE | 2022-07-22 12:27 | DS.PCM_ITS ---
Providers Date of Admission: 07/20/22 Date of Discharge: 07/22/22 Primary Care Physician: HALEY Llanes Reason For Visit: INTRACTABLE N/V ABD PAIN Diagnosis Discharge Diagnosis (1) Acute kidney injury: Status: Acute Code(s): N17.9 - Acute kidney failure, unspecified (2) Abdominal pain: Status: Acute Code(s): R10.9 - Unspecified abdominal pain (3) Nausea and vomiting: Status: Acute Code(s): R11.2 - Nausea with vomiting, unspecified Plan #Intractable nausea and vomiting due to cannabinoid hyperemesis syndrome * still complains of nausea and vomiting. * says he last used cannabis ~ 1 week prior * being hdyrated with IVF * on IV zofran prn * on compazine prn also * if it persists, consult gastroenterology * currently NPO. * on IV PPI * #ZACKARY * Cr was 2.25 on admission. will trend Cr. continue hydration and trend * #Fatty liver: follow up with gastroenterology on outpatient basis #anxiety, depression and bipoalar disorder: on seroquel and buspar #Hypertension: on amlodipine and metoprolol. Benazepril on hold due to ZACKARY. IV hydralazine #GERD: on PPI #History of Gilbert syndrome: Stable. Bilirubin is 1.2. #Nicotine dependence: Counseled to quit. DVT prophylaxis: Heparin Medications at Discharge Home Medications metoprolol succinate 25 mg tablet,extended release 24 hr 25 mg PO QHS HTN 05/21/20 pantoprazole 40 mg tablet,delayed release 40 mg PO BID GERD 05/21/20 amlodipine 10 mg tablet 10 mg PO QHS HTN 01/31/21 ondansetron 8 mg disintegrating tablet 8 mg PO Q8H PRN nausea and vomiting #90 tabs 05/04/22 benazepril 10 mg tablet 10 mg PO QHS Check with primary doctor 07/20/22 clonazepam 1 mg tablet 1 mg PO BID PRN PRN Anxiety 07/20/22 gabapentin 400 mg capsule 400 mg PO BID nerve pain 07/20/22 quetiapine 400 mg tablet 400 mg PO QHS bipolar 07/20/22 Hospital Course Operations None Procedures None Summary of Care Provided Minutes Spent on Discharge: 45 Hospital Course: Patient is a 42 y/o male with a PMH as outlined who was admitted via the ED on 07/20/2022 with a complaitn of intractable abdominal pain, nausea and vomiting. He had associated left upper quadrant and left sided flank discomfort. CT of the abdomen and pelvis showed no acute cardiopulmonary process apart froma 2mm nonobstructing calculus int eh upper pole of the calyx asa well as a vague hypodensity in the upper pole of the corex measuring 1cm and was otherwise normal. He was admitted and managed for intractable abdominal pain likely due to cannabinoid hyperemesis syndrome. He was given pain meds and hydrated with IVF. Pain meds as well as zofran was given. His symptoms improved and he felt better. He remained stable and was discharged home on 07/22/2022. He is to follow up with his PCP within 1-2 weeks. Patient seen and examined. He still had some abdominal pain. Review of systems was otherwise negative. Labs and vitals negative. Home meds reviewed and reconciled. Physical Exam Const alert and oriented x3 General Appearance: cooperative, comfortable and well kempt HEENT normocephalic and moist oral mucous membranes Mouth: oral and palatal mucosa normal Neck no lymphadenopathy and supple Lymph Lymphatic: no lymphadenopathy noted and no lymphedema noted Resp normal respiratory effort, normal air movement and clear to auscultation bilaterally Cardio regular rate, regular rhythm, S1 normal heart sound, S2 normal heart sound and no murmurs GI normal to inspection, nondistended, normoactive bowel sounds, soft to palpation and non-tender Extremity normal capillary refill and no clubbing, cyanosis or edema Skin no rashes or lesions noted General Skin Exam: no breakdown and turgor normal Neuro oriented x3, CN's II-XII intact bilaterally, moves all extremities, no focal motor deficits and no sensory deficits noted Sensorium / Orientation: awake and alert Motor Exam: strength 5/5 throughout Psych thought process normal Attitude: agitated Medical Records Data Medical Nutrition Assessment Dietitian: Malnutrition Criteria Met Start: 07/21/22 10:11 Freq: Status: Active Protocol: Document 07/21/22 10:11 PARTHA (Rec: 07/21/22 10:11 PARTHA [id number]) Nutrition Malnutrition Evidence of Malnutrition Exists Yes Malnutrition (severe): Chronic Evidenced By Suboptimal Energy Intake ( Severe),Weight Loss (Severe) Clinical Problem Chronic Disease or Condition Related Malnutrition Etiology related to intractable n/v/abd pain and inadequate energy intake Signs/Symptoms as evidenced by unintentional wt loss of 22.2% and <75% po intake in past 6-7 months Status Active Problem Recommendation Dietitian Recommendations/Changes As medically able, rec LEISA to transitional w/ goal of liberal Regular diet w/ 8 oz ensure clear w/ meals tid for increased nutrition if consumed If NPO anticipated to be prolonged, rec consider supplemental nutrition support if in accordance w/ pt/family wishes. Weight / BMI Weight Weight: 185 lb 13.595 oz Body Mass Index (BMI) 23.8 ABG / Lab / Microbiology Data Result Diagrams: 07/22/22 06:47 07/22/22 06:47 Laboratory: Laboratory Results - last 24 hr 07/22/22 06:47: WBC 8.7, RBC 4.46 L, Hgb 13.2, Hct 37.8 L, MCV 84.8, MCH 29.6, MCHC 34.9 D, RDW Std Deviation 40.7, RDW Coeff of Seymour 13.2, Plt Count 203, MPV 12.3 H, Immature Gran % (Auto) 0.300, Neut % (Auto) 79.5 H, Lymph % (Auto) 13.4 L, Irion % (Auto) 6.5, Eos % (Auto) 0.1, Baso % (Auto) 0.2, Absolute Neuts (auto) 6.9, Absolute Lymphs (auto) 1.17, Nucleated RBC % 0 07/22/22 06:47: Sodium 136, Potassium 4.0, Chloride 109 H, Carbon Dioxide 18.0 L , Anion Gap 9, BUN 11, Creatinine 0.85, Estim Creat Clear Calc 128.94, Est GFR (MDRD) Af Amer 126, Est GFR (MDRD) Non-Af 104, BUN/Creatinine Ratio 12.9, Glucose 98, Calcium 8.7 D/C Instructions Discharge Diet: Low fat / Low cholesterol Discharge Activity: Return to Normal Activity Weight Bearing Status: Weight bearing as tolerated Call your doctor if you observe: Fever of 101 or Higher, Shortness of breath, Dizziness, Swelling in the ankles and Chest pain Meaningful Use Info Meaningful Use Diagnoses (Choose all that apply): None applicable Discharge Plan Admission Admit Date/Time: 07/20/22 21:10 Primary Reason for Your Visit: nausea and vomiting Attending Provider: Nella Borrero Primary Care Provider: Talia Bateman Consulting Providers: Stacey Polk Instructions Patient Instructions: ED Vomiting (Adult) Discharge Orders/Prescriptions Prescriptions: Continued ondansetron 8 mg tablet,disintegrating 8 mg PO Q8H PRN (Reason: nausea and vomiting) Qty: 90 3RF pantoprazole 40 MG tablet 40 mg PO BID metoprolol succinate 25 MG tablet 25 mg PO QHS amlodipine 10 mg tablet 10 mg PO QHS quetiapine 400 mg tablet 400 mg PO QHS clonazepam 1 mg tablet 1 mg PO BID PRN PRN (Reason: Anxiety) gabapentin 400 mg capsule 400 mg PO BID benazepril 10 mg tablet 10 mg PO QHS Rx Instructions: Start after 3 days Referrals / Follow Up: Talia Bateman, PA [Primary Care Provider] - Within 2 Weeks Disposition Disposition (needs filled in before D/C Order can be placed): Home, Self Care Charges/Coding Visit Charges Inpatient E&M: 36979 Disch Hosp >30min
[2022-07-22 13:25] VITALS: BP 150/92; PULSE 70; RESP 16; TEMP 36.8; O2SAT 100
== END 2022-07-22 13:38 | disposition home or self-care (01) | DRG 392 ==
LOC: ED 21:05 → MS3 21:34
PROVIDERS: Admitting Provider Family Medicine; Emergency Provider Emergency Medicine; PCP Physician Assistant; Visit Provider Student in an Organized Health Care Education/Training Program
DX: R11.2 Nausea with vomiting, unspecified (principal); N17.9 Acute kidney failure, unspecified; F31.9 Bipolar disorder, unspecified; E78.49 Other hyperlipidemia; K76.0 Fatty (change of) liver, not elsewhere classified; E86.0 Dehydration; K21.9 Gastro-esophageal reflux disease without esophagitis; E80.4 Gilbert syndrome; I10 Essential (primary) hypertension; F12.90 Cannabis use, unspecified, uncomplicated; Z87.891 Personal history of nicotine dependence; F43.10 Post-traumatic stress disorder, unspecified; Z86.16 Personal history of COVID-19; F90.9 Attention-deficit hyperactivity disorder, unspecified type; Z80.0 Family history of malignant neoplasm of digestive organs; Z23 Encounter for immunization
CPT/HCPCS: 36415; 74176; 80048; 80053; 81001; 83690; 83735; 84100; 85025; 93005; 96372; 97802; 99285; J7030; 90686; J2405; J3490

== ENCOUNTER 2022-10-11 05:14 | Day surgery (SDC) | payer MEDICARE, MEDICAID, SELFPAY ==
[2022-10-11 06:05] VITALS: BP 209/143; PULSE 82; RESP 18; TEMP 36.8; O2SAT 99; BMI 24.3
[2022-10-11] MEDS: Lactated Ringers 1,000 ML 15 ML IV (06:21)
--- NOTE | 2022-10-11 06:30 | COLBX_PTH ---
PATIENT: CAS SANCHEZ LOC: EN U#:[id number] AGE/SX: 42/M ROOM: RE10/11/[address]: Dr. Blake Dailey DO : 1980 BED: DIS: 10/11/2022 SPEC #: [id number] RECD: 10/11/22 10:15 STATUS: LIAN RENatan #: [id number] SELINA: 10/11/22 06:[address]: Blake Dailey DEPT: SURGICAL PATHOLOGY RECD BY: Leila Feliz ENTERED: 10/11/22 11:49 SP TYPE: COLON BX OTHR DR: HALEY Llanes Tissues: A - Ileum, NOS B - Rectum, NOS Procedures: Surgery Specimen Level IV HEADER OPERATION: Colonoscopy (MAC) with Botox and biopsies PRE-OP DIAGNOSIS: Polyps and rectal pain TISSUE SUBMITTED: A ? Terminal ileum, B - Rectum MICROSCOPIC DIAGNOSIS A. Terminal ileum, biopsy: Fragments of small intestinal mucosa, no pathologic diagnosis. B. Rectum, biopsy: A fragment of colonic mucosa, no pathologic diagnosis. CHARAN:beatris 10/12/2022 MICROSCOPIC DESCRIPTION Slides are reviewed. GROSS DESCRIPTION A - Received in fixative is one container labeled with the patient's name and designated terminal ileum. The specimen consists of multiple irregular fragments of light go soft tissue that in aggregate measure 0.7 x 0.5 x 0.1 cm. The specimen is totally submitted in one cassette. B - Received in fixative is one container labeled with the patient's name and designated rectum. The specimen consists of one irregular fragment of light go soft tissue that measures 0.3 x 0.3 x 0.1 cm. The specimen is totally submitted in one cassette. / CHARAN:beatris 10/11/2022 TC:4 CPT: 91327
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
[2022-10-11] MEDS: Botulinum Toxin A 100 Units Vial IJ (07:03)
[2022-10-11] MEDS: 0.9% Normal Saline (Pres. free 10 ML Vial (07:04)
[2022-10-11] MEDS: 0.9% Saline Lock 10 ML Syringe IV (07:04)
[2022-10-11 07:10] VITALS: BP 209/143; BP 92/61; PULSE 72; RESP 16; TEMP 36.2; O2SAT 94
[2022-10-11 07:14] VITALS: BP 209/143; BP 85/56; PULSE 72; RESP 16; O2SAT 95
--- NOTE | 2022-10-11 07:15 | OP.CCLET_ITS ---
10/11/2022 Talia Bateman Re : Colonoscopy procedure for Jony Carrington Dear Fransico This procedure was performed on Tuesday, October 11, 2022. My impressions and recommendations are as follows: Impressions : - Preparation of the colon was poor. - Anal fissure found on perianal exam. - Stool in the rectum, in the recto-sigmoid colon, in the sigmoid colon, in the descending colon, in the transverse colon, in the ascending colon and in the cecum. - Friability with contact bleeding in the rectum. Biopsied. - Congested mucosa in the terminal ileum. Biopsied. Recommendations : - Discharge patient to home. - Resume previous diet. - Continue present medications. - Await pathology results. - Repeat colonoscopy in 1 year for surveillance. My findings are described in the full procedure note, which is enclosed. If I can be of further assistance, please feel free to contact me at . Sincerely, Blake Dailey, 10/11/2022 7:14:42 AM This report has been signed electronically.
--- NOTE | 2022-10-11 07:15 | OP.COLON_ITS ---
Patient Name: Jony Carrington Procedure Date: 10/11/2022 6:29 AM Date of : 1980 Age: 42 Procedure: Colonoscopy Indications: Follow-up for history of adenomatous polyps in the colon, Proctalgia fugax Providers: Blake Dailey DO Referring MD: Blake Dailey DO Medicines: Monitored Anesthesia Care Patient Profile: This is a 42 year old male. Refer to note in patient chart for documentation of history and physical. Last Colonoscopy: within the past 3 years. Complications: No immediate complications. Procedure: Pre-Anesthesia Assessment: - Prior to the procedure, a History and Physical was performed, and patient medications and allergies were reviewed. The patient is competent. The risks and benefits of the procedure and the sedation options and risks were discussed with the patient. All questions were answered and informed consent was obtained. Patient identification and proposed procedure were verified by the physician. Mental Status Examination: alert and oriented. Prophylactic Antibiotics: The patient does not require prophylactic antibiotics. Prior Anticoagulants: The patient has taken no previous anticoagulant or antiplatelet agents. ASA Grade Assessment: II - A patient with mild systemic disease. After reviewing the risks and benefits, the patient was deemed in satisfactory condition to undergo the procedure. The anesthesia plan was to use monitored anesthesia care (MAC). Immediately prior to administration of medications, the patient was re-assessed for adequacy to receive sedatives. The heart rate, respiratory rate, oxygen saturations, blood pressure, adequacy of pulmonary ventilation, and response to care were monitored throughout the procedure. The physical status of the patient was re-assessed after the procedure. After I obtained informed consent, the scope was passed under direct vision. Throughout the procedure, the patient's blood pressure, pulse, and oxygen saturations were monitored continuously. The was introduced through the anus and advanced to the terminal ileum. The colonoscopy was performed without difficulty. The patient tolerated the procedure well. The quality of the bowel preparation was poor. Scope In: 6:44:52 AM Scope Withdrawal Time 0 hours 17 minutes 17 seconds Scope Out: 7:04:45 AM Total Procedure Duration Time 0 hours 19 minutes 53 seconds Findings: An anal fissure was found on perianal exam. A large amount of liquid semi-liquid stool was found in the rectum, in the recto-sigmoid colon, in the sigmoid colon, in the descending colon, in the transverse colon, in the ascending colon and in the cecum. A localized area of mildly friable mucosa with contact bleeding was found in the rectum. Biopsies were taken with a cold forceps for histology. Verification of patient identification for the specimen was done. Estimated blood loss was minimal. A patchy area of the terminal ileum was congested. Biopsies were taken with a cold forceps for histology. Verification of patient identification for the specimen was done. Estimated blood loss was minimal. A 5 mm anal fissure was found in the anal canal. Area was successfully injected with 100 units botulinum toxin. Impression: - Preparation of the colon was poor. - Anal fissure found on perianal exam. - Stool in the rectum, in the recto-sigmoid colon, in the sigmoid colon, in the descending colon, in the transverse colon, in the ascending colon and in the cecum. - Friability with contact bleeding in the rectum. Biopsied. - Congested mucosa in the terminal ileum. Biopsied. Recommendation: - Discharge patient to home. - Resume previous diet. - Continue present medications. - Await pathology results. - Repeat colonoscopy in 1 year for surveillance. Procedure Code(s): --- Professional --- 61524, Colonoscopy, flexible; with biopsy, single or multiple 50012, Colonoscopy, flexible; with directed submucosal injection(s), any substance CPT copyright 2017 [employer]. All rights reserved. The codes documented in this report are preliminary and upon grain elevator operator review may be revised to meet current compliance requirements. Blake Dailey DO 10/11/2022 7:14:42 AM This report has been signed electronically. Number of Addenda: 0 Note Initiated On: 10/11/2022 6:29 AM
[2022-10-11 07:20] VITALS: BP 209/143; BP 92/59; PULSE 68; RESP 16; O2SAT 92
[2022-10-11 07:27] VITALS: BP 209/143; BP 96/61; PULSE 65; RESP 16; TEMP 36; O2SAT 98
[2022-10-11 07:36] VITALS: BP 209/143
== END 2022-10-11 07:44 | disposition home or self-care (01) ==
LOC: EN 05:16 → AC 05:17
PROVIDERS: PCP Physician Assistant; Referring Provider Physician Assistant; Visit Provider Internal Medicine Gastroenterology
PROC: 0DJD8ZZ Inspection of Lower Intestinal Tract, Via Natural or Artificial Opening Endoscopic (ICD-10-PCS; CPT 45378; principal; 2022-10-11 06:25)
DX: K60.2 Anal fissure, unspecified (principal); K62.5 Hemorrhage of anus and rectum; K76.0 Fatty (change of) liver, not elsewhere classified; K21.9 Gastro-esophageal reflux disease without esophagitis; F41.9 Anxiety disorder, unspecified; Z87.891 Personal history of nicotine dependence; Z86.010 Personal history of colon polyps; K58.0 Irritable bowel syndrome with diarrhea; R11.2 Nausea with vomiting, unspecified
CPT/HCPCS: 45380; 45381; 88305; J7120; A4216; J0585; J2405; J3490

== ENCOUNTER 2023-08-07 16:27 | Emergency (ER) | payer MEDICARE, MEDICAID, SELFPAY ==
[2023-08-07 16:28] VITALS: BP 138/88; PULSE 116; RESP 18; TEMP 36.4; O2SAT 99
--- NOTE | 2023-08-07 17:22 | CT_ITS ---
STUDY: CT BRAIN WITHOUT CONTRAST REASON FOR EXAM: Male, 43 years old. Trauma RADIATION DOSAGE (If Supplied By Facility): CTDIvol = ( 47.09 ) mGy, DLP = ( 943.26 ) mGycm TECHNIQUE: Transaxial CT imaging of the brain was performed without administration of intravenous contrast material. Individualized dose optimization techniques were used for this CT. COMPARISON: No relevant priors. FINDINGS: Normal soft tissue structures. Normal calvarium. Normal size ventricles and extra-axial spaces for the patient''s age. Normal white matter tracts of the cerebral hemispheres. Normal basal ganglia and thalami. Normal brainstem. Normal cerebellum. There is no intracranial hemorrhage. There are no findings of an acute ischemic infarction. Normal visualized paranasal sinuses. CT/Brain/Head without Contrast IMPRESSION: Normal unenhanced CT scan of the brain. Electronically Signed: Eugenio Galvin MD at 19:00 EDT ,
--- NOTE | 2023-08-07 17:22 | CT_ITS ---
STUDY: CT CERVICAL SPINE WITHOUT CONTRAST REASON FOR EXAM: Male, 43 years old. Trauma RADIATION DOSAGE (If Supplied By Facility): CTDIvol = ( 19.09 ) mGy, DLP = ( 408.32 ) mGycm TECHNIQUE: High resolution transaxial imaging was performed without contrast material. Sagittal and coronal images were reconstructed. Individualized dose optimization techniques were used for this CT. COMPARISON: None FINDINGS: Normal craniovertebral junction. Normal anterior atlantoaxial articulation. Normal odontoid process. Normal cervical lordosis. Normal vertebral bodies and posterior osseous elements. There is no acute fracture. C2-3: Normal endplates. Normal disc height and morphology. Normal central canal and intervertebral neuroforamina. C3-4: Anterior spurring. Normal disc height and morphology. Normal central canal and intervertebral neuroforamina. C4-5: Mild spurring. Normal disc height and morphology. Normal central canal and intervertebral neuroforamina. C5-6: Normal endplates. Normal disc height and morphology. Normal central canal and intervertebral neuroforamina. C6-7: Normal endplates. Normal disc height and morphology. Normal central canal and intervertebral neuroforamina. C7-T1: Normal endplates. Normal disc height and morphology. Normal central canal and intervertebral neuroforamina. Normal visualized soft tissue structures. CT/Spine Cervical without Contras IMPRESSION: No fracture. Mild degenerative change. Electronically Signed: Eugenio Galvin MD at 19:03 EDT ,
[2023-08-07 18:22] VITALS: PULSE 100; RESP 16; O2SAT 99
[2023-08-07 19:21] VITALS: BMI 25.6
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
[2023-08-07] MEDS: Oxycodone/Apap 5/325 Tablet PO (19:40)
--- NOTE | 2023-08-07 20:00 | RAD_ITS ---
STUDY: X-RAY - RIGHT SHOULDER REASON FOR EXAM: Male, 43 years old. MCA TECHNIQUE: 2 view(s) of the shoulder. COMPARISON: None. FINDINGS: Normal glenohumeral articulation. Normal acromioclavicular joint. Normal acromion. Normal humeral head and visualized proximal humerus. The soft tissue structures are unremarkable. There is no demonstrated fracture. Normal visualized pulmonary apex. RAD/Shoulder min 2 Views IMPRESSION: Normal x-ray examination of the shoulder. Electronically Signed: Eugenio Galvin MD at 20:39 EDT ,
--- NOTE | 2023-08-07 20:00 | RAD_ITS ---
STUDY: X-RAY CHEST REASON FOR EXAM: Male, 43 years old. MCA TECHNIQUE: PA and lateral views of the chest. COMPARISON: None. FINDINGS: The lungs are clear and expanded. There is no demonstrated pleural abnormality. Normal size heart. Normal mediastinum and moira. Normal visualized pulmonary arteries. Normal visualized aortic arch and descending thoracic aorta. Normal visualized thoracic spine. Normal visualized ribs, clavicles, and shoulders. There is no demonstrated abnormality of the visualized soft tissue structures of the upper abdomen. RAD/Chest PA and Lateral IMPRESSION: Normal x-ray examination of the chest. Electronically Signed: Eugenio Galvin MD at 20:38 EDT ,
--- NOTE | 2023-08-07 20:00 | RAD_ITS ---
STUDY: X-RAY - LEFT SHOULDER REASON FOR EXAM: Male, 43 years old. MCA TECHNIQUE: 2 view(s) of the shoulder. COMPARISON: None. FINDINGS: Normal glenohumeral articulation. Normal acromioclavicular joint. Normal acromion. Normal humeral head and visualized proximal humerus. The soft tissue structures are unremarkable. There is no demonstrated fracture. Normal visualized pulmonary apex. RAD/Shoulder min 2 Views IMPRESSION: Normal x-ray examination of the shoulder. Electronically Signed: Eugenio Galvin MD at 20:39 EDT ,
[2023-08-07 20:15] VITALS: BP 135/82; PULSE 82; RESP 16; TEMP 36.3; O2SAT 97
== END 2023-08-07 21:48 | disposition home or self-care (01) ==
PROVIDERS: Emergency Provider Emergency Medicine; Visit Provider Emergency Medicine
DX: S16.1XXA Strain of muscle, fascia and tendon at neck level, initial encounter (principal); F31.9 Bipolar disorder, unspecified; Z87.891 Personal history of nicotine dependence; V28.49XA Other motorcycle driver injured in noncollision transport accident in traffic accident, initial encounter; I10 Essential (primary) hypertension; Z79.899 Other long term (current) drug therapy; F41.9 Anxiety disorder, unspecified; K21.9 Gastro-esophageal reflux disease without esophagitis; Z90.49 Acquired absence of other specified parts of digestive tract; F43.10 Post-traumatic stress disorder, unspecified; S40.011A Contusion of right shoulder, initial encounter
CPT/HCPCS: 70450; 71046; 72125; 73030; 99282

== ENCOUNTER → 2023-10-03 | Outpatient (CLI) | payer MEDICARE, MEDICAID, SELFPAY | END | disposition home or self-care (01) | PROVIDERS: PCP Internal Medicine; Referring Provider Internal Medicine; Visit Provider Internal Medicine | DX: R00.2 Palpitations (principal) | CPT/HCPCS: 93225; 93226 ==

== ENCOUNTER → 2023-10-08 | Outpatient (CLI) | payer MEDICARE, MEDICAID, SELFPAY ==
[2023-10-08 08:47] LABS: Absolute Lymphocyte Count 1.96 X10^3/uL (0.83-4.51); Absolute Neutrophil Count 4.7 X10^3/uL (2.0-7.7); Basophil# 0.05 X10^3/uL; Basophil% 0.7 % (0-1); Eosinophils% 2.7 % (0-5); Hematocrit 44.8 % (40-54); Hemoglobin 14.8 g/dL (13.0-16.5); Lymphocyte # 1.96 X10^3/ul (0.83-4.51); Lymphocyte % 26.6 % (19-41); Mean Corpuscular Hgb 29.2 pg (27.0-32.0); Mean Corpuscular Volume 88.5 fL (80-94); Monocyte# 0.47 X10^3/uL; Monocyte% 6.4 % (0-10); NRBC Flagged by Analyzer 0 % (0-5); Neutrophil # 4.65 X10^3/uL (2.7-7.7); Neutrophil % 63.1 % (47-70); Platelet Count 186 K/mm3 (150-450); RBC Distribution Width CV 13.6 % (11.6-14.6); RBC Distribution Width SD 43.7 fl (35.1-43.9); Red Blood Count 5.06 M/mm3 (4.6-6.2); White Blood Count 7.4 K/mm3 (4.4-11.0)
[2023-10-08 09:55] LABS: ALB/GLOB Ratio 1.2 RATIO (0.9-2.4); AST(SGOT) 18 U/L (15-37); Alanine Aminotransfer ALT/SGPT 22 U/L (16-61); Albumin, Serum 4.1 g/dL (3.2-5.0); Alkaline Phosphatase 117 U/L (45-117); Anion Gap 6 (5-15); BUN 9 mg/dL (7-18); BUN/Creat Ratio 8.1 RATIO (10-20); Calcium,Total 8.9 mg/dL (8.5-10.1); Chloride 109 mmol/L (98-107); Cholesterol 291 mg/dL (200); Creatinine, Serum 1.11 mg/dL (0.70-1.30); EST Glomerular Filtration Rate 76 mL/min (>60); Est Glom Filt Rate - Afr Amer 92 mL/min (>60); Globulin 3.5 g/dL (2.2-4.2); Glucose 106 mg/dL (74-106); High Density Lipoprotein 32 mg/dL; PSA,Total - Annual Screen 0.57 ng/mL (0.00-4.00); Potassium 4.6 mmol/L (3.5-5.1); Protein, Total 7.6 g/dL (6.4-8.2); Sodium Level 134 mmol/L (136-145); T4 Free Direct 0.75 ng/dL (0.76-1.46); Thyroid Stim Hormone (TSH) 3.44 uIU/mL (0.358-3.74); Triglycerides 207 mg/dL; Very Low Density Lipoprotein 41 mg/dL (5-40)
== END | disposition home or self-care (01) ==
LOC: LAB 07:46
PROVIDERS: PCP Internal Medicine; Referring Provider Internal Medicine; Visit Provider Internal Medicine
DX: I10 Essential (primary) hypertension (principal); R00.2 Palpitations; Z12.5 Encounter for screening for malignant neoplasm of prostate
CPT/HCPCS: 36415; 80053; 80061; 81001; 84153; 84439; 84443; 85025; G0103

== ENCOUNTER → 2024-03-26 | Outpatient (CLI) | payer MEDICARE, MEDICAID, SELFPAY ==
[2024-03-26 12:40] LABS: ALB/GLOB Ratio 1.4 RATIO (0.9-2.4); AST(SGOT) 22 U/L (15-37); Alanine Aminotransfer ALT/SGPT 24 U/L (16-61); Albumin, Serum 4.7 g/dL (3.2-5.0); Alkaline Phosphatase 117 U/L (45-117); Anion Gap 5 (5-15); BUN 10 mg/dL (7-18); BUN/Creat Ratio 8.9 RATIO (10-20); Calcium,Total 9.3 mg/dL (8.5-10.1); Chloride 105 mmol/L (98-107); Cholesterol 150 mg/dL (200); Creatinine, Serum 1.12 mg/dL (0.70-1.30); EST Glomerular Filtration Rate 75 mL/min (>60); Est Glom Filt Rate - Afr Amer 91 mL/min (>60); Globulin 3.3 g/dL (2.2-4.2); Glucose 105 mg/dL (74-106); High Density Lipoprotein 37 mg/dL; Potassium 4.3 mmol/L (3.5-5.1); Sodium Level 135 mmol/L (136-145); Triglycerides 117 mg/dL; Very Low Density Lipoprotein 23 mg/dL (5-40)
== END | disposition home or self-care (01) ==
LOC: BIMLAB 09:12
PROVIDERS: PCP Internal Medicine; Referring Provider Internal Medicine; Visit Provider Internal Medicine
DX: E78.5 Hyperlipidemia, unspecified (principal)
CPT/HCPCS: 36415; 80053; 80061

== ENCOUNTER 2024-04-14 06:15 | Emergency (ER) | payer MEDICARE, MEDICAID, SELFPAY ==
[2024-04-14 06:16] VITALS: BP 150/126; PULSE 121; RESP 20; TEMP 36.7; O2SAT 96; BMI 26.4
[2024-04-14 06:19] VITALS: BP 150/126; PULSE 109; RESP 19; TEMP 36.6; O2SAT 95
--- NOTE | 2024-04-14 06:24 | CT_ITS ---
INDICATION: right flank pain EXAMINATION: CT ABDOMEN AND PELVIS WITHOUT CONTRAST - CT Abdomen And Pelvis W/O Contrast Injection TECHNIQUE: Helically acquired images were obtained of the abdomen and pelvis without oral or IV contrast. The protocol utilizes one or more of the following dose reduction techniques: automated exposure control, adjustment of mA and/or kV according to patient size,and/or use of iterative reconstruction technique. IV Contrast dosage and agent: None. Oral contrast: None. RADIATION DOSAGE (If Supplied By Facility): CTDIvol = ( 8.5 ) mGy, DLP = ( 913.01 ) mGycm COMPARISON: Prior study dated: 05/08/2015. FINDINGS: LOWER CHEST: Lung bases are clear. No cardiomegaly or pericardial effusion. LIVER: Homogeneous. No focal mass. GALLBLADDER AND BILIARY TREE: Absent gallbladder consistent with previous cholecystectomy. No intra- or extrahepatic biliary ductal dilation. PANCREAS: No focal cystic or solid mass. SPLEEN: Normal size without focal cystic or solid mass. ADRENAL GLANDS: Prominent left adrenal gland unchanged as prior exam. KIDNEYS AND URETERS: Normal renal size and position. Persistent 2 mm nonobstructing stone in the upper pole of the left kidney. Possible small cysts in the left kidney not clearly visualized. No evidence of hydronephrosis. PERITONEUM: No ascites or free air. No other fluid collection. BOWEL: No evidence of acute appendicitis. No stomach or bowel distension. No focal inflammatory change. LYMPH NODES: No enlarged mesenteric or retroperitoneal lymph nodes. VESSELS: Aorta is non-dilated. URINARY BLADDER: Unremarkable. REPRODUCTIVE ORGANS: No pelvic masses. ABDOMINAL WALL: Status post right inguinal hernia repair. Small left inguinal hernia containing fat. BONES: No lytic or blastic abnormality. CT/Abdomen/Pelvis without Cont IMPRESSION: 1. No focal acute inflammatory process. 2. Small nonobstructing stone in the left kidney unchanged. Electronically Signed: Chilo Crockett MD at 8:32 EST ,
--- NOTE | 2024-04-14 06:28 | EDS_ITS ---
HPI History of Present Illness Chief Complaint: Abd Pain Informant: patient and spouse/S.O. Narrative Narrative: Patient is a 43-year-old male with past medical history of hypertension IBS ADHD and hyperlipidemia. He states that last night around 8:00 he felt a small amount of pain along the right back/abdomen. He reports that it was not severe however and he was able to lie down and throughout the night he kept having recurrent bouts of pain that caused him to toss and turn. However about 1 hour prior to arrival he have severe right sided abdominal/flank pain with bouts of nausea and vomit. He denies any recent trauma or excessive activity. He states that there is been no known sick contact. He denies any dysuria or hematuria. However based on the persistent worsening symptoms he presents for evaluation. [facility] Medical History Localized skin mass, lump, or swelling Hyperlipidemia Screening for prostate cancer Palpitations PTSD (post-traumatic stress disorder) History of renal disease DVT (deep venous thrombosis) Restless legs Injury of head and neck Former smoker Liver fibrosis Hepatomegaly Bipolar 1 disorder Social anxiety disorder Wears dentures Wears glasses History of hiatal hernia History of IBS History of diverticulitis Gastric reflux History of edema History of echocardiogram History of stress test Abdominal pain COVID Hypomagnesemia Hypokalemia Hypophosphatemia ADHD (attention deficit hyperactivity disorder) Intractable nausea and vomiting IBS (irritable bowel syndrome) Dehydration Tobacco abuse Cannabis-related disorder Familial combined hyperlipidemia Esophageal reflux Chronic post-traumatic stress disorder Benign essential HTN Anxiety disorder Gilbert syndrome Vertigo, intermittent HTN (hypertension) Hiatal hernia Nephrolithiasis Home Medications ?Medication ?Instructions ?Recorded ?Last Taken ?Type clonazepam 1 mg tablet 1 mg PO BID PRN PRN Anxiety 07/20/22 Unknown History quetiapine 400 mg tablet 400 mg PO QHS bipolar 07/20/22 Unknown History ondansetron 8 mg disintegrating 8 mg PO Q8H PRN nausea and 12/06/22 Unknown Rx tablet vomiting #90 tabs promethazine 25 mg tablet 25 mg PO TID PRN nausea and 12/06/22 Unknown Rx vomiting #90 tabs gabapentin 400 mg capsule 400 mg PO TID nerve pain 09/28/23 Unknown History pantoprazole 40 mg tablet,delayed 40 mg PO BID #60 TABLETS 11/22/23 Unknown Rx release amlodipine 10 mg tablet 10 mg PO QHS HTN #30 tabs 03/13/24 Unknown Rx rosuvastatin 20 mg tablet 20 mg PO DAILY #30 tabs 03/13/24 Unknown Rx amoxicillin 875 mg-potassium 1 tab PO Q12H #10 tabs 03/26/24 Unknown Rx clavulanate 125 mg tablet benazepril 10 mg tablet 10 mg PO QHS Check with primary 04/03/24 Unknown Rx doctor #90 tabs metoprolol succinate 25 mg 25 mg PO QHS HTN #90 tabs 04/03/24 Unknown Rx tablet,extended release 24 hr Allergy/AdvReac Type Severity Reaction Status Date / Time ciprofloxacin AdvReac Upset Verified 04/14/24 06:20 Stomach doxycycline AdvReac Upset Verified 04/14/24 06:20 Stomach metronidazole (From Flagyl) AdvReac Upset Verified 04/14/24 06:20 Stomach Family History Aunt Colon cancer Father Diabetes Hypertension Mother High cholesterol Surgical History History of hernia surgery History of esophagogastroduodenoscopy (EGD) History of esophagogastroduodenoscopy (EGD) S/P colonoscopy History of incision and drainage S/P orchiopexy S/P vasectomy S/P cholecystectomy S/P right knee surgery S/P inguinal hernia repair Social History household members: spouse and children housing: house current occupational status: disabled Smoking Status: Former smoker Electronic Cigarette Use: with nicotine how long ago did patient quit smoking: Reports quitting cigarette tobacco use ~ 5 months prior 02/2022. second hand exposure: Yes alcohol intake: never substance use type: marijuana caffeine: Yes what type of physical activity do you participate in: none frequency: does not exercise seatbelt use: always do you feel safe at home: Yes ROS ROS ED Constitutional Constitutional ED: Denies chills or fever(s) Eyes Eyes: Denies blurry vision or change in vision ENT ENT ED: Denies sore throat Cardiovascular Cardiovascular: Denies chest pain Respiratory/Chest Respiratory/Chest: Denies cough or dyspnea Gastrointestinal Gastrointestinal: Reports abdominal pain, nausea and vomiting; Denies diarrhea Genitourinary Genitourinary ED: Denies dysuria, hematuria or urinary frequency Musculoskeletal Musculoskeletal: Reports back pain Integumentary Denies rash Neurologic Neurologic: Denies headache(s) Hematologic/Lymphatic Hematologic/Lymphatic: Denies easy bleeding or easy bruising EXAM Physical Exam Const Vital Signs: 04/14/24 06:16 04/14/24 06:19 Temperature 98.0 F 98 F Temperature Source Axillary Axillary Pulse Rate 121 H 109 H Respiratory Rate 20 H 19 H Blood Pressure 150/126 H 150/126 H Blood Pressure Mean 134 134 Pulse Ox 96 95 Oxygen Delivery Method Room Air Room Air Positive well nourished and well developed General Appearance ED: well developed; Negative for pallor HEENT HEENT Narrative: Normocephalic atraumatic Eyes PERRL and EOMs intact bilaterally General Eye ED: Negative for scleral icterus Neck supple Neck Narrative: No nuchal rigidity or meningeal signs Resp normal respiratory effort and clear to auscultation bilaterally Cardio regular rhythm Rate: tachycardic and other Other Details: Tachycardic rate with regular rhythm Radial and carotid pulses are equal and symmetric No murmurs rubs or gallops noted GI non-tender and non-distended Auscultation: normoactive bowel sounds Palpation: soft Back/Spine Back/Spine Narrative: Positive right CVA pain present Extremity normal to inspection Extremity Narrative: No asymmetric edema no pitting edema negative Homans' sign bilaterally Neuro oriented x3, CN's II-XII intact bilaterally and no sensory deficits noted Sensorium / Orientation: alert Motor Exam: strength 5/5 throughout Psych Mood & Affect: anxious Skin no rashes or lesions noted and no wounds Skin Narrative: No overlying soft tissue changes to suggest trauma or infection General Skin Exam: Negative for jaundice or pallor MDM MDM MDM Narrative Medical decision making narrative: Patient arrived to ER hypertensive and tachycardic but was in pain which is a normal physiologic response. His history and exam is most consistent with kidney stone. Therefore in order to check for kidney stone versus UTI versus pyelonephritis versus acute kidney injury basic blood work with urine sample and noncontrast CT will be obtained. At this time and we are having difficulty obtaining the IV and getting his symptoms under control. Therefore I am morphine and oral Zofran will be provided. As the imaging and laboratory studies are still pending he will be signed out to the day physician for continued care. History & Record Review Discussion w/independent historian: Patient Discharge Plan Triage Chief Complaint: Abd Pain ED Provider: Shad Foreman Dx/Rx/DC Orders Prescriptions: No Action ondansetron 8 mg tablet,disintegrating 8 mg PO Q8H PRN (Reason: nausea and vomiting) Qty: 90 3RF promethazine 25 mg tablet 25 mg PO TID PRN (Reason: nausea and vomiting) Qty: 90 3RF amoxicillin-pot clavulanate 875-125 mg tablet 1 tab PO Q12H Qty: 10 0RF quetiapine 400 mg tablet 400 mg PO QHS clonazepam 1 mg tablet 1 mg PO BID PRN PRN (Reason: Anxiety) Patient Comments: weaning off taking 1/[address] brandon casas gabapentin 400 mg capsule 400 mg PO TID pantoprazole 40 mg tablet,delayed release (DR/EC) 40 mg PO BID Qty: 60 5RF amlodipine 10 mg tablet 10 mg PO QHS Qty: 30 0RF rosuvastatin 20 mg tablet 20 mg PO DAILY Qty: 30 1RF Rx Instructions: Take 1/2 tablet daily x 2 weeks then increase to 1 tablet benazepril 10 mg tablet 10 mg PO QHS Qty: 90 1RF metoprolol succinate 25 mg tablet extended release 24 hr 25 mg PO QHS Qty: 90 1RF Primary Care Provider: Adelso Sevilla Referrals: Adelso Sevilla MD [Primary Care Provider] - Print Language: Maori
[2024-04-14] MEDS: morphine 10 MG/ML Syringe IM (07:14)
[2024-04-14] MEDS: Ondansetron ODT 4 MG Tablet PO (07:14)
[2024-04-14 07:19] LABS: Anion Gap 10 (5-15); BUN 9 mg/dL (7-18); BUN/Creat Ratio 6.7 RATIO (10-20); Calcium,Total 9.9 mg/dL (8.5-10.1); Chloride 110 mmol/L (98-107); Creatinine, Serum 1.35 mg/dL (0.70-1.30); EST Glomerular Filtration Rate 61 mL/min (>60); Est Glom Filt Rate - Afr Amer 73 mL/min (>60); Estimated Creatinine Clearance 80.34 ml/min; Glucose 119 mg/dL (74-106); Potassium 4.2 mmol/L (3.5-5.1); Sodium Level 138 mmol/L (136-145)
[2024-04-14] MEDS: proCHLORPERazine 10 MG/2 ML Vial IV (07:24)
[2024-04-14] MEDS: Ketorolac 30 MG/ML Syringe IV (07:25)
[2024-04-14] MEDS: DiphenhydrAMINE 50 MG/ML Syringe 25 MG IV (07:25)
[2024-04-14] MEDS: 0.9% Normal Saline (1000mL) 1,000 ML 999 ML IV (07:28)
[2024-04-14 07:37] LABS: Absolute Lymphocyte Count 1.59 X10^3/uL (0.83-4.51); Absolute Neutrophil Count 15.1 X10^3/uL (2.0-7.7); Basophil# 0.07 X10^3/uL; Basophil% 0.4 % (0-1); Eosinophil# 0.09 X10^3/uL; Eosinophils% 0.5 % (0-5); Hematocrit 43.7 % (40-54); Lymphocyte # 1.59 X10^3/ul (0.83-4.51); Lymphocyte % 8.9 % (19-41); Mean Corp Hgb Conc 34.3 g/dL (32-36); Mean Corpuscular Hgb 29.7 pg (27.0-32.0); Mean Corpuscular Volume 86.5 fL (80-94); Mean Platelet Vol. 12.7 fl (6.2-12.0); Monocyte# 0.85 X10^3/uL; Monocyte% 4.7 % (0-10); NRBC Flagged by Analyzer 0 % (0-5); Neutrophil # 15.14 X10^3/uL (2.7-7.7); Neutrophil % 84.6 % (47-70); Platelet Count 206 K/mm3 (150-450); RBC Distribution Width CV 13.2 % (11.6-14.6); RBC Distribution Width SD 41.1 fl (35.1-43.9); Red Blood Count 5.05 M/mm3 (4.6-6.2); White Blood Count 17.9 K/mm3 (4.4-11.0)
[2024-04-14 08:00] VITALS: BP 150/106; PULSE 98; RESP 19; TEMP 36.8; O2SAT 98
[2024-04-14] MEDS: Haloperidol Lactate 5 MG/ML Vial 2 MG IM (08:45)
== END 2024-04-14 10:04 | disposition home or self-care (01) ==
PROVIDERS: Emergency Provider Emergency Medicine; PCP Internal Medicine; Visit Provider Emergency Medicine
DX: R10.9 Unspecified abdominal pain (principal); E78.49 Other hyperlipidemia; R11.2 Nausea with vomiting, unspecified; Z87.891 Personal history of nicotine dependence; I10 Essential (primary) hypertension
CPT/HCPCS: 36415; 74176; 80048; 85025; 96361; 96372; 96374; 96375; 99283; A4216; J2405

== ENCOUNTER → 2024-05-16 | Outpatient (CLI) | payer MEDICARE, MEDICAID, SELFPAY ==
[2024-05-22 12:08] LABS: Pancreatic Elastase, Fecal 46 (>200)
== END | disposition home or self-care (01) ==
LOC: LABSPEC 10:25
PROVIDERS: PCP Internal Medicine; Referring Provider Student in an Organized Health Care Education/Training Program; Visit Provider Student in an Organized Health Care Education/Training Program
DX: K62.89 Other specified diseases of anus and rectum (principal)
CPT/HCPCS: 82653; 83993

== ENCOUNTER 2024-06-02 10:36 | Day surgery (SDC) | payer MEDICARE, MEDICAID, SELFPAY ==
--- NOTE | 2024-05-29 16:49 | PAT.ANESEVAL ---
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 When Was Last Pacemaker Check QUESTION #4 FULL TEXT: You/Your Family Experience fever (hyperthermia) with Anesthesia Last Oral Intake Last Oral intake: Last Oral Intake NPO since Meds taken in AM with sips of water? Meds patient instructed to take am of surgery PONV PONV - mortgage loan originator: PONV - mortgage loan originator Female No 05/29/24 10:26 HX of Motion Sickness Yes 05/29/24 10:26 HX of N/V After Surgery No 05/29/24 10:26 Non-Smoker Yes 05/29/24 10:26 Duration of Surgery greater No 05/29/24 10:26 than 60 minutes Number of Risk Factors 2 05/29/24 10:26 PONV Score Moderate Risk 05/29/24 10:26 Height & Weight Height & Weight: Anesthesia: Height & Weight Height 6 ft 2 in 04/14/24 06:16 Respiratory Assessment Respiratory Assessment - mortgage loan originator: Respiratory Tract Infection Hx - mortgage loan originator Hx Respiratory Tract Infection No 05/29/24 10:26 STOP Sleep Apnea STOP Sleep Apnea - mortgage loan originator: STOP Sleep Apnea - mortgage loan originator Hx Hypertension Yes: CONTROLLED WITH MEDS 05/29/24 10:26 Hx Sleep Apnea No 05/29/24 10:26 CPAP No 10/09/22 13:32 BIPAP No 10/09/22 13:32 Do you snore loudly (louder Yes 05/29/24 10:26 than talking or can be heard Do you often feel tired/ No 05/29/24 10:26 fatigued/ sleepy during daytime? Has anyone observed you stop Yes 05/29/24 10:26 breathing during sleep? STOP Results Positive 05/29/24 10:26 QUESTION #5 FULL TEXT : Do you snore loudly (louder than talking or can be heard through closed doors)? 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 Specify any problems Hx of Preganancy in last 3 N/A 05/29/24 10:26 Months Nurse Filling Out Transfusion [email or web address] 05/29/24 10:26 & Questions: Date: 05/29/24 05/29/24 10:26 Time: 10:05/29/24 10:26 Patient unable to answer at this time (ie. confused, unrespo /Reproduction History /Reproductive History - mortgage loan originator: /Reproductive Hx- mortgage loan originator Hx Now Gestational Age (in weeks): EDC: Hx Hx Para Hx Section SAB No 10/09/22 13:32 Active Medications Active Medications: Current Medications Generic Name Dose Route Start Last Admin Trade Name Freq PRN Reason Stop Dose Admin Botulinum Toxin Type A 100 units 06/02/24 08:00 Botulinum Toxin A 100 Units Vial IJ 06/02/24 08:01 X1 [facility] Medical History Localized skin mass, lump, or swelling Hyperlipidemia Screening for prostate cancer Palpitations PTSD (post-traumatic stress disorder) History of renal disease DVT (deep venous thrombosis) Restless legs Injury of head and neck Former smoker Liver fibrosis Hepatomegaly Bipolar 1 disorder Social anxiety disorder Wears dentures Wears glasses History of hiatal hernia History of IBS History of diverticulitis Gastric reflux History of edema History of echocardiogram History of stress test Abdominal pain COVID Hypomagnesemia Hypokalemia Hypophosphatemia ADHD (attention deficit hyperactivity disorder) Intractable nausea and vomiting IBS (irritable bowel syndrome) Dehydration Tobacco abuse Cannabis-related disorder Familial combined hyperlipidemia Esophageal reflux Chronic post-traumatic stress disorder Benign essential HTN Anxiety disorder Gilbert syndrome Vertigo, intermittent HTN (hypertension) Hiatal hernia Nephrolithiasis Home Medications ?Medication ?Instructions ?Recorded ?Last Taken ?Type clonazepam 1 mg tablet 1 mg PO BID PRN PRN Anxiety 07/20/22 Unknown History quetiapine 400 mg tablet 400 mg PO QHS bipolar 07/20/22 Unknown History ondansetron 8 mg disintegrating 8 mg PO Q8H PRN nausea and 12/06/22 Unknown Rx tablet vomiting #90 tabs gabapentin 400 mg capsule 800 mg PO TID nerve pain 09/28/23 Unknown History benazepril 10 mg tablet 10 mg PO QHS Check with primary 04/03/24 Unknown Rx doctor #90 tabs metoprolol succinate 25 mg 25 mg PO QHS HTN #90 tabs 04/03/24 Unknown Rx tablet,extended release 24 hr promethazine 25 mg tablet 25 mg PO TID PRN nausea and 04/14/24 Unknown Rx vomiting 7 days #21 tabs amlodipine 10 mg tablet 10 mg PO QHS HTN #90 tabs 04/18/24 Unknown Rx pantoprazole 40 mg tablet,delayed 40 mg PO BID #60 TABLETS 05/09/24 Unknown Rx release famotidine 40 mg tablet 40 mg PO QDAY #60 tabs 05/15/24 Unknown Rx lamotrigine 100 mg tablet 200 mg PO DAILY 05/29/24 Unknown History omeprazole 20 mg capsule,delayed 20 mg PO DAILY 05/29/24 Unknown History release rosuvastatin 20 mg tablet 20 mg PO QHS 05/29/24 Unknown History Allergy/AdvReac Type Severity Reaction Status Date / Time ciprofloxacin AdvReac Upset Verified 05/29/24 10:20 Stomach doxycycline AdvReac Upset Verified 05/29/24 10:20 Stomach metronidazole (From Flagyl) AdvReac Upset Verified 05/29/24 10:20 Stomach Family History Aunt Colon cancer Father Diabetes Hypertension Mother High cholesterol Surgical History History of hernia surgery History of esophagogastroduodenoscopy (EGD) History of esophagogastroduodenoscopy (EGD) S/P colonoscopy History of incision and drainage S/P orchiopexy S/P vasectomy S/P cholecystectomy S/P right knee surgery S/P inguinal hernia repair Social History household members: spouse and children housing: house current occupational status: disabled Smoking Status: Former smoker Electronic Cigarette Use: with nicotine how long ago did patient quit smoking: Reports quitting cigarette tobacco use ~ 5 months prior 02/2022. second hand exposure: Yes alcohol intake: never substance use type: marijuana caffeine: Yes what type of physical activity do you participate in: none frequency: does not exercise seatbelt use: always do you feel safe at home: Yes Audit: Pertinent Findings Pertinent Findings EKG Perinent findings: July 21, 2022. Normal sinus rhythm with sinus arrhythmia. Additional pertinent findings: October 03, 2023. Holter monitor. Average heart rate was normal sinus rhythm. No ventricular ectopy noted. No atrial fibrillation noted. There were a total of 28 supraventricular ectopic beats. Patient's diary noted pressure and pain at night but his monitor was normal sinus rhythm during these times. Recommendation Anesthesia Recommendation Anesthesia recommendation: OPTIMIZED for anesthesia
[2024-06-02] VITALS (8 sets, daily range): BP systolic 92–132; BP diastolic 54–85; PULSE 66–93; RESP 16; TEMP 2.2–37.1; O2SAT 94–98; BMI 26.6
--- NOTE | 2024-06-02 11:46 | PRE.ANES_ITS ---
ASA Classification* ASA Classification ASA Classification: 2 Assessment & Plan Anesthesia* Anesthesia Assessment Anesthesia Assessment: Discussed sedation and/or anesthesia options, risks, benefits, and alternatives with patient/parents/legal guardian/POA. Questions invited. The patient/parents/legal guardian/POA seems to understand and agrees to proceed with anesthesia plan. Reviewed the physical assessment, medical history, allergy history and patient home medications list prior to surgery/procedure/anesthetic and documented any changes. Performed airway and anesthesia risk assessments. Anesthesia Type Anesthesia Type: MAC Anesthesia Focused Assessment* Temperature: 98.7 F Pulse Rate: 93 Blood Pressure: 132/85 Respiratory Rate: 16 Pulse Ox: 97 Airway Assessment Mouth opens: >3 cm Mallampati Score: II Focused Labs Anesthesia Preop lab: CBC WBC 17.9 K/mm3 (4.4-11.0) H 04/14/24 07:33 4 RBC 5.05 M/mm3 (4.6-6.2) 04/14/24 07:33 04/14/24 Hgb 15.0 g/dL (13.0-16.5) 04/14/24 07:33 04/14/24 Hct 43.7 % (40-54) 04/14/24 07:33 04/14/24 Plt Count 206 K/mm3 (150-450) 04/14/24 07:33 04/14/24 CHEMISTRY Potassium 4.2 mmol/L (3.5-5.1) 04/14/24 06:59 04/14/24 Sodium 138 mmol/L (136-145) 04/14/24 06:59 04/14/24 Magnesium 2.1 mg/dL (1.6-2.6) 07/20/22 16:20 07/20/22 Phosphorus 2.2 mg/dL (2.5-4.9) L 07/20/22 16:20 07/20/22 BUN 9 mg/dL (7-18) 04/14/24 06:59 04/14/24 Creatinine 1.35 mg/dL (0.70-1.30) H 04/14/24 06:59 Glucose 119 mg/dL (74-106) H 04/14/24 06:59 04/14/24 TSH 3.44 uIU/mL (0.358-3.74) 10/08/23 07:48 COAG PT 12.9 SECONDS (11.7-14.9) 05/21/20 11:00 Pre-Assessment Diagnosis/Proposed Procedure Planned Operative Procedure(s): COLONOSCOPY, EGD Anesthesia History 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 When Was Last Pacemaker Check QUESTION #4 FULL TEXT: You/Your Family Experience fever (hyperthermia) with Anesthesia Last Oral Intake Last Oral intake: Last Oral Intake NPO since 04:30 06/02/24 11:03 Meds taken in AM with sips of Yes 06/02/24 11:03 water? Meds patient instructed to take am of surgery PONV PONV - electric distribution checker: PONV - electric distribution checker Female No 05/29/24 10:26 HX of Motion Sickness Yes 05/29/24 10:26 HX of N/V After Surgery No 05/29/24 10:26 Non-Smoker Yes 05/29/24 10:26 Duration of Surgery greater No 05/29/24 10:26 than 60 minutes Number of Risk Factors 2 05/29/24 10:26 PONV Score Moderate Risk 05/29/24 10:26 Height & Weight Height & Weight: Anesthesia: Height & Weight Height 6 ft 2 in 06/02/24 11:03 Weight: 94.2 kg 06/02/24 11:03 Body Mass Index (BMI) 26.6 06/02/24 11:03 Respiratory Assessment Respiratory Assessment - electric distribution checker: Respiratory Tract Infection Hx - electric distribution checker Hx Respiratory Tract Infection No 05/29/24 10:26 STOP Sleep Apnea STOP Sleep Apnea - electric distribution checker: STOP Sleep Apnea - electric distribution checker Hx Hypertension Yes: CONTROLLED WITH MEDS 05/29/24 10:26 Hx Sleep Apnea No 05/29/24 10:26 CPAP No 10/09/22 13:32 BIPAP No 10/09/22 13:32 Do you snore loudly (louder Yes 05/29/24 10:26 than talking or can be heard Do you often feel tired/ No 05/29/24 10:26 fatigued/ sleepy during daytime? Has anyone observed you stop Yes 05/29/24 10:26 breathing during sleep? STOP Results Positive 05/29/24 10:26 QUESTION #5 FULL TEXT : Do you snore loudly (louder than talking or can be heard through closed doors)? 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 Specify any problems Hx of Preganancy in last 3 N/A 05/29/24 10:26 Months Nurse Filling Out Transfusion [email or web address] 05/29/24 10:26 & Questions: Date: 05/29/24 05/29/24 10:26 Time: 10:30 05/29/24 10:26 Patient unable to answer at this time (ie. confused, unrespo /Reproduction History /Reproductive History - electric distribution checker: /Reproductive Hx- electric distribution checker Hx Now Gestational Age (in weeks): EDC: Hx Hx Para Hx Section SAB No 10/09/22 13:32 PFSH Medical History Localized skin mass, lump, or swelling Hyperlipidemia Screening for prostate cancer Palpitations PTSD (post-traumatic stress disorder) History of renal disease DVT (deep venous thrombosis) Restless legs Injury of head and neck Former smoker Liver fibrosis Hepatomegaly Bipolar 1 disorder Social anxiety disorder Wears dentures Wears glasses History of hiatal hernia History of IBS History of diverticulitis Gastric reflux History of edema History of echocardiogram History of stress test Abdominal pain COVID Hypomagnesemia Hypokalemia Hypophosphatemia ADHD (attention deficit hyperactivity disorder) Intractable nausea and vomiting IBS (irritable bowel syndrome) Dehydration Tobacco abuse Cannabis-related disorder Familial combined hyperlipidemia Esophageal reflux Chronic post-traumatic stress disorder Benign essential HTN Anxiety disorder Gilbert syndrome Vertigo, intermittent HTN (hypertension) Hiatal hernia Nephrolithiasis Home Medications ?Medication ?Instructions ?Recorded ?Last Taken ?Type clonazepam 1 mg tablet 1 mg PO BID PRN PRN Anxiety 07/20/22 Unknown History quetiapine 400 mg tablet 400 mg PO QHS bipolar Unknown History ondansetron 8 mg disintegrating 8 mg PO Q8H PRN nausea and 12/06/22 06/02/24 04:30 Rx tablet vomiting #90 tabs gabapentin 400 mg capsule 800 mg PO TID nerve pain 06/02/24 04:30 History benazepril 10 mg tablet 10 mg PO QHS Check with prim babak 04/03/24 Unknown Rx doctor #90 tabs metoprolol succinate 25 mg 25 mg PO QHS HTN #90 tabs 1 06/04/23 Unknown Rx tablet,extended release 24 hr promethazine 25 mg tablet 25 mg PO TID PRN nausea and 04/14/24 Unknown Rx vomiting 7 days #21 tabs amlodipine 10 mg tablet 10 mg PO QHS HTN #90 tabs Unknown Rx pantoprazole 40 mg tablet,delayed 40 mg PO BID #60 TAB LETS 05/09/24 Unknown Rx release famotidine 40 mg tablet 40 mg PO QDAY #60 tabs 05/15 Unknown Rx lamotrigine 100 mg tablet 200 mg PO DAILY 05/29/2407/22 04:30 History omeprazole 20 mg capsule,delayed 20 mg PO DAILY Unknown History release rosuvastatin 20 mg tablet 20 mg PO QHS 05/29/24 Unknow n History Allergy/AdvReac Type Severity Reaction Status Date / Time ciprofloxacin AdvReac Upset Verified 06/02/24 11:00 Stomach doxycycline AdvReac Upset Verified 06/02/24 11:00 Stomach metronidazole (From Flagyl) AdvReac Upset Verified 06/02/24 11:00 Stomach Family History Aunt Colon cancer Father Diabetes Hypertension Mother High cholesterol Surgical History History of hernia surgery History of esophagogastroduodenoscopy (EGD) History of esophagogastroduodenoscopy (EGD) S/P colonoscopy History of incision and drainage S/P orchiopexy S/P vasectomy S/P cholecystectomy S/P right knee surgery S/P inguinal hernia repair Social History household members: spouse and children housing: house current occupational status: disabled Smoking Status: Former smoker Electronic Cigarette Use: with nicotine how long ago did patient quit smoking: Reports quitting cigarette tobacco use ~ 5 months prior 02/2022. second hand exposure: Yes alcohol intake: never substance use type: marijuana caffeine: Yes what type of physical activity do you participate in: none frequency: does not exercise seatbelt use: always do you feel safe at home: Yes Review of Systems (Anesthesia) ROS Narrative System reviewed and no additional complaints, except as documented.
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
--- NOTE | 2024-06-02 12:00 | EGD_PTH ---
PATIENT: CAS SANCHEZ LOC: EN U#:[id number] AGE/SX: 44/M ROOM: RE06/02/[address]: Dr. Blake Dailey DO : 1980 BED: DIS: 06/02/2024 SPEC #: [id number] RECD: 06/02/24 13:31 STATUS: LIAN RENatan #: [id number] SELINA: 06/02/24 12:[address]: Blake Dailey DEPT: SURGICAL PATHOLOGY RECD BY: Louisa Rodriguez ENTERED: 06/02/24 13:49 SP TYPE: EGD BIOPSY OT DR: Dr. Adelso Sevilla MD Tissues: A - Duodenum, NOS B - Ileum, NOS Procedures: Surgery Specimen Level IV HEADER OPERATION: Colonoscopy, EGD with biopsy, Botox in rectum PRE-OP DIAGNOSIS: Proctalgia fugax, anal fissure, rectal pain, nausea/vomiting TISSUE SUBMITTED: A- Duodenum biopsy, B- Terminal ileum biopsy MICROSCOPIC DIAGNOSIS A. Duodenum, biopsy: Mild chronic duodenitis. Villous architecture is maintained. No significant increase in intraepithelial lymphocytes, not suggestive of Celiac's disease. B. Terminal ileum, biopsy: Ileal mucosa with no significant pathologic findings. /mr 06/03/2024 MICROSCOPIC DESCRIPTION Slides are reviewed. GROSS DESCRIPTION A. Received in fixative is one container labeled with the patient's name and designated Duodenum biopsy. The specimen consists of one irregular fragment of light og soft tissue that measures 0.5 x 0.3 x 0.3 cm. The specimen is totally submitted in one cassette. B. Received in fixative is one container labeled with the patient's name and designated Terminal ileum biopsy. The specimen consists of multiple irregular fragments of light go soft tissue that in aggregate measure 1.5 x 0.3 x 0.2 cm. The specimen is totally submitted in one cassette. BW.mr 06/02/2024 TC:3 CPT:[id number]
[2024-06-02] MEDS: 0.9% Normal Saline (Pres. free 10 ML Vial (12:20)
[2024-06-02] MEDS: Botulinum Toxin A 100 Units Vial IJ (12:21)
[2024-06-02] MEDS: 0.9% Saline Lock 10 ML Syringe IV (12:31)
--- NOTE | 2024-06-02 12:32 | PCM.POST.ANE ---
Anesthesia: Postop Eval I Current Vital Signs Temperature: 36 F Pulse Rate: 78 Blood Pressure: 106/78 Respiratory Rate: 16 Pulse Ox: 98 Oxygen Delivery Method: Room Air Assessment Airway patent: Yes Spontaneous unlabored respirations: Yes Mental status: Awake nausea: No Vomiting: No Anesthesia Complication: No Fluid Hydration Crystalloid volume administer (ml): 10 Total IV fluid infused: 10 Progress Note Anesthesia document: Postop Eval 1 completed: Yes
--- NOTE | 2024-06-02 12:39 | OP.CCLET_ITS ---
06/02/2024 Adelso Sevilla MD [address] [place] [address] [place] [address] Re : Upper GI endoscopy procedure for Jony Carrington Dear Dr. Sevilla This procedure was performed on Sunday, June 02, 2024. My impressions and recommendations are as follows: Impressions : - LA Grade A reflux esophagitis with no bleeding. - Gastroparesis. Biopsied. - No gross lesions in the fourth portion of the duodenum. Recommendations : - Discharge patient to home. - Resume previous diet. - Continue present medications. - Await pathology results. My findings are described in the full procedure note, which is enclosed. If I can be of further assistance, please feel free to contact me at . Sincerely, Blake Dailey, 06/02/2024 12:39:10 PM This report has been signed electronically.
--- NOTE | 2024-06-02 12:39 | OP.EGD_ITS ---
Patient Name: Jony Carrington Procedure Date: 06/02/2024 11:55 AM Date of : 1980 Age: 44 Procedure: Upper GI endoscopy Indications: Epigastric abdominal pain Providers: Blake Dailey DO Referring MD: Adelso Sevilla MD Medicines: Monitored Anesthesia Care Patient Profile: This is a 44 year old male. Refer to note in patient chart for documentation of history and physical. Patient has symptoms. Complications: No immediate complications. Procedure: Pre-Anesthesia Assessment: - Prior to the procedure, a History and Physical was performed, and patient medications and allergies were reviewed. The patient is competent. The risks and benefits of the procedure and the sedation options and risks were discussed with the patient. All questions were answered and informed consent was obtained. Patient identification and proposed procedure were verified by the physician in the pre-procedure area. Mental Status Examination: alert and oriented. Airway Examination: normal oropharyngeal airway and neck mobility. Respiratory Examination: clear to auscultation. CV Examination: normal. Prophylactic Antibiotics: The patient does not require prophylactic antibiotics. Prior Anticoagulants: The patient has taken no anticoagulant or antiplatelet agents except for NSAID medication. ASA Grade Assessment: II - A patient with mild systemic disease. After reviewing the risks and benefits, the patient was deemed in satisfactory condition to undergo the procedure. The anesthesia plan was to use monitored anesthesia care (MAC). Immediately prior to administration of medications, the patient was re-assessed for adequacy to receive sedatives. The heart rate, respiratory rate, oxygen saturations, blood pressure, adequacy of pulmonary ventilation, and response to care were monitored throughout the procedure. The physical status of the patient was re-assessed after the procedure. After obtaining informed consent, the endoscope was passed under direct vision. Throughout the procedure, the patient's blood pressure, pulse, and oxygen saturations were monitored continuously. The pediatric colonoscope was introduced through the mouth, and advanced to the second part of duodenum. The upper GI endoscopy was accomplished without difficulty. The patient tolerated the procedure well. Scope In: 12:11:56 PM Scope Out: 12:14:38 PM Total Procedure Duration Time 0 hours 2 minutes 42 seconds Findings: LA Grade A (one or more mucosal breaks less than 5 mm, not extending between tops of 2 mucosal folds) esophagitis with no bleeding was found 36 to 39 cm from the incisors. Suspect gastroparesis due to patient symptoms and retained gastric contents. Biopsies were taken with a cold forceps for histology. Verification of patient identification for the specimen was done. Estimated blood loss was minimal. Biopsies were taken with a cold forceps for Helicobacter pylori testing. Verification of patient identification for the specimen was done. Estimated blood loss was minimal. No gross lesions were noted in the fourth portion of the duodenum. A small hiatal hernia was present. Impression: - LA Grade A reflux esophagitis with no bleeding. - Gastroparesis. Biopsied. - No gross lesions in the fourth portion of the duodenum. Recommendation: - Discharge patient to home. - Resume previous diet. - Continue present medications. - Await pathology results. Procedure Code(s): --- Professional --- 76669, Esophagogastroduodenoscopy, flexible, transoral; with biopsy, single or multiple CPT copyright 2021 [employer]. All rights reserved. The codes documented in this report are preliminary and upon videographer review may be revised to meet current compliance requirements. Blake Dailey DO 06/02/2024 12:39:10 PM This report has been signed electronically. Number of Addenda: 0 Note Initiated On: 06/02/2024 11:55 AM
--- NOTE | 2024-06-02 12:42 | OP.COLON_ITS ---
Patient Name: Jony Carrington Procedure Date: 06/02/2024 12:14 PM Date of : 1980 Age: 44 Procedure: Colonoscopy Indications: Abdominal pain in the left lower quadrant, Abdominal pain in the right lower quadrant, Clinically significant diarrhea of unexplained origin Providers: Blake Dailey DO Referring MD: Adelso Sevilla MD Medicines: Monitored Anesthesia Care Patient Profile: This is a 44 year old male. Refer to note in patient chart for documentation of history and physical. Patient has symptoms. Last Colonoscopy: several years ago. Complications: No immediate complications. Procedure: Pre-Anesthesia Assessment: - Prior to the procedure, a History and Physical was performed, and patient medications and allergies were reviewed. The patient is competent. The risks and benefits of the procedure and the sedation options and risks were discussed with the patient. All questions were answered and informed consent was obtained. Patient identification and proposed procedure were verified by the physician in the pre-procedure area. Mental Status Examination: alert and oriented. Airway Examination: normal oropharyngeal airway and neck mobility. Respiratory Examination: clear to auscultation. CV Examination: normal. Prophylactic Antibiotics: The patient does not require prophylactic antibiotics. Prior Anticoagulants: The patient has taken no anticoagulant or antiplatelet agents except for NSAID medication. ASA Grade Assessment: II - A patient with mild systemic disease. After reviewing the risks and benefits, the patient was deemed in satisfactory condition to undergo the procedure. The anesthesia plan was to use monitored anesthesia care (MAC). Immediately prior to administration of medications, the patient was re-assessed for adequacy to receive sedatives. The heart rate, respiratory rate, oxygen saturations, blood pressure, adequacy of pulmonary ventilation, and response to care were monitored throughout the procedure. The physical status of the patient was re-assessed after the procedure. After I obtained informed consent, the scope was passed under direct vision. Throughout the procedure, the patient's blood pressure, pulse, and oxygen saturations were monitored continuously. The pediatric colonoscope was introduced through the anus and advanced to the terminal ileum. The colonoscopy was performed without difficulty. The patient tolerated the procedure well. The quality of the bowel preparation was adequate. Scope In: 12:16:06 PM Scope Withdrawal Time 0 hours 9 minutes 9 seconds Scope Out: 12:27:39 PM Total Procedure Duration Time 0 hours 11 minutes 33 seconds Findings: The perianal and digital rectal examinations were normal. A few small-mouthed diverticula were found in the recto-sigmoid colon and sigmoid colon. Non-bleeding internal hemorrhoids were found during retroflexion. The hemorrhoids were Grade II (internal hemorrhoids that prolapse but reduce spontaneously). The exam was otherwise without abnormality on direct and retroflexion views. Localized mild inflammation characterized by erythema was found in the terminal ileum. Biopsies were taken with a cold forceps for histology. Verification of patient identification for the specimen was done. Estimated blood loss was minimal. A 5 mm anal fissure was found in the anal canal. The internal anal sphincter was successfully injected with 100 units botulinum toxin. Impression: - Diverticulosis in the recto-sigmoid colon and in the sigmoid colon. - Non-bleeding internal hemorrhoids. - The examination was otherwise normal on direct and retroflexion views. - Mild inflammation was found in the ileum secondary to ileitis. Biopsied. Recommendation: - Discharge patient to home. - Resume previous diet. - Continue present medications. - Await pathology results. - Repeat colonoscopy in 5 years for surveillance. Procedure Code(s): --- Professional --- 59377, Chemodenervation of internal anal sphincter 80617, Colonoscopy, flexible; with biopsy, single or multiple CPT copyright 2021 [employer]. All rights reserved. The codes documented in this report are preliminary and upon bell maker review may be revised to meet current compliance requirements. Blake Dailey DO 06/02/2024 12:42:27 PM This report has been signed electronically. Number of Addenda: 0 Note Initiated On: 06/02/2024 12:14 PM
--- NOTE | 2024-06-02 12:43 | OP.CCLET_ITS ---
06/02/2024 Adelso Sevilla MD [address] [place] [address] [place] [address] Re : Colonoscopy procedure for Jony Carrington Dear Dr. Sevilla This procedure was performed on Sunday, June 02, 2024. My impressions and recommendations are as follows: Impressions : - Diverticulosis in the recto-sigmoid colon and in the sigmoid colon. - Non-bleeding internal hemorrhoids. - The examination was otherwise normal on direct and retroflexion views. - Mild inflammation was found in the ileum secondary to ileitis. Biopsied. Recommendations : - Discharge patient to home. - Resume previous diet. - Continue present medications. - Await pathology results. - Repeat colonoscopy in 5 years for surveillance. My findings are described in the full procedure note, which is enclosed. If I can be of further assistance, please feel free to contact me at . Sincerely, Blake Friend, 06/02/2024 12:42:27 PM This report has been signed electronically.
--- NOTE | 2024-06-02 12:59 | POSTOPAN2_ITS ---
Anesthesia Postop Eval I Sum Postop Eval Completion status Anesthesia document: Postop Eval 1 completed: Yes Anesthesia Postop Eval I Summary Anesthesia Postop Eval I Summary: Anesthesia Postop Eval I: Assessment Summary Airway patent Yes 06/02/24 12:32 INTERNAL AUDIT MANAGER.JCLI Spontaneous unlabored Yes 06/02/24 12:32 INTERNAL AUDIT MANAGER.PASQUALE respirations Mental status Awake 06/02/24 12:32 INTERNAL AUDIT MANAGER.VENECIALI nausea No 06/02/24 12:32 INTERNAL AUDIT MANAGER.VENECIALI Vomiting No 06/02/24 12:32 INTERNAL AUDIT MANAGER.PASQUALE Anesthesia Postop Eval I: Fluid Summary Crystalloid volume administer 10 06/02/24 12:32 INTERNAL AUDIT MANAGER.JCLI (ml) Colloids volume administered ( ml) Blood Product volume administered (ml) Total IV fluid infused 10 06/02/24 12:32 INTERNAL AUDIT MANAGER.PASQUALE Anesthesia Postop Eval I: Summary Notes Anesthesia Complication No 06/02/24 12:32 INTERNAL AUDIT MANAGER.PASQUALE Anesthesia Complication Comment: Post-operative progress note Anesthesia: Postop Eval II Evaluation Mental status: Awake Pain Level: 0 nausea: No Vomiting: No
--- NOTE | 2024-06-02 12:59 | PCM.POSTANE2 ---
Anesthesia Postop Eval I Sum Postop Eval Completion status Anesthesia document: Postop Eval 1 completed: Yes Anesthesia Postop Eval I Summary Anesthesia Postop Eval I Summary: Anesthesia Postop Eval I: Assessment Summary Airway patent Yes 06/02/24 12:32 ELECTROCARDIOGRAPH REPAIRER.[email or web address] Spontaneous unlabored Yes 06/02/24 12:32 ELECTROCARDIOGRAPH REPAIRER.[email or web address] respirations Mental status Awake 06/02/24 12:32 ELECTROCARDIOGRAPH REPAIRER.VENECIALI nausea No 06/02/24 12:32 ELECTROCARDIOGRAPH REPAIRER.VENECIALI Vomiting No 06/02/24 12:32 ELECTROCARDIOGRAPH REPAIRER.PASQUALE Anesthesia Postop Eval I: Fluid Summary Crystalloid volume administer 10 06/02/24 12:32 ELECTROCARDIOGRAPH REPAIRER.JCLI (ml) Colloids volume administered ( ml) Blood Product volume administered (ml) Total IV fluid infused 10 06/02/24 12:32 ELECTROCARDIOGRAPH REPAIRER.PASQUALE Anesthesia Postop Eval I: Summary Notes Anesthesia Complication No 06/02/24 12:32 ELECTROCARDIOGRAPH REPAIRER.PASQUALE Anesthesia Complication Comment: Post-operative progress note Anesthesia: Postop Eval II Evaluation Mental status: Awake Pain Level: 0 nausea: No Vomiting: No
== END 2024-06-02 13:11 | disposition home or self-care (01) ==
LOC: EN 10:37 → AC 10:39
PROVIDERS: PCP Internal Medicine; Referring Provider Internal Medicine; Visit Provider Internal Medicine Gastroenterology
PROC: 0DJD8ZZ Inspection of Lower Intestinal Tract, Via Natural or Artificial Opening Endoscopic (ICD-10-PCS; CPT 45378; principal; 2024-06-02 11:55)
DX: K29.80 Duodenitis without bleeding (principal); K21.00 Gastro-esophageal reflux disease with esophagitis, without bleeding; K31.84 Gastroparesis; K57.30 Diverticulosis of large intestine without perforation or abscess without bleeding; E78.49 Other hyperlipidemia; Z87.891 Personal history of nicotine dependence; I10 Essential (primary) hypertension; K60.2 Anal fissure, unspecified; K64.1 Second degree hemorrhoids; K59.4 Anal spasm; K62.89 Other specified diseases of anus and rectum; R11.2 Nausea with vomiting, unspecified; Z79.899 Other long term (current) drug therapy
CPT/HCPCS: 45380; 46505; 43239; 88305; A4216; J0585

== ENCOUNTER 2024-12-01 07:42 | Emergency (ER) | payer MEDICARE, MEDICAID, SELFPAY ==
[2024-12-01 07:42] VITALS: BP 163/110; PULSE 130; PULSE 135; RESP 20; TEMP 36.1; O2SAT 97; BMI 26.1
--- NOTE | 2024-12-01 07:58 | EX.ED.DYSGE1 ---
HPI History of Present Illness Chief Complaint: Abd Pain Narrative Narrative: Chief complaint and HPI: Nausea and vomiting. 44-year-old male with past medical history HTN, HLD, cannabinoid hyperemesis syndrome presents for evaluation of nausea and vomiting. Patient states 4 days ago he smoked marijuana. States since then he has had nausea and vomiting. Endorses abdominal cramping secondary to the consistent nausea and vomiting. States it feels like his typical cannabinoid hyperemesis syndrome. Has been taking Phenergan with little relief. Denies any fever, chills, shortness of breath, chest pain, dysuria. States he was doing really well being clean from marijuana however had a relapse. Denies any other illicit drugs. States this feels like his typical cannabinoid hyperemesis syndrome. Review of systems: See HPI Medications: As listed on the chart Allergies: As listed on the chart PFSH: Per chart Vital signs: As listed on the chart. Reviewed. Physical exam: Gen: A&O x3, NAD Head: Normocephalic, atraumatic Eyes: No sclera icterus, conjunctiva clear ENT: Dry mucous membranes Neck: Trachea midline, No JVD CV: RRR, no murmurs, no peripheral edema Resp: Lungs CTA BL, no w/r/c GI: Abd soft, non-distended, non-tender, no r/r/g Musc: Full ROM, no deformity Skin: Warm, dry Neuro: Alert, oriented, grossly intact, sensation intact Psych: Cooperative, appropriate mood and affect [facility] Medical History (Updated 08/07/24 @ 22:[address] Adelso Sevilla MD) Palpable mass of neck Cervical radiculopathy Localized skin mass, lump, or swelling Hyperlipidemia Screening for prostate cancer Palpitations PTSD (post-traumatic stress disorder) History of renal disease DVT (deep venous thrombosis) Restless legs Injury of head and neck Former smoker Liver fibrosis Hepatomegaly Bipolar 1 disorder Social anxiety disorder Wears dentures Wears glasses History of hiatal hernia History of IBS History of diverticulitis Gastric reflux History of edema History of echocardiogram History of stress test Abdominal pain COVID Hypomagnesemia Hypokalemia Hypophosphatemia ADHD (attention deficit hyperactivity disorder) Intractable nausea and vomiting IBS (irritable bowel syndrome) Dehydration Tobacco abuse Cannabis-related disorder Familial combined hyperlipidemia Esophageal reflux Chronic post-traumatic stress disorder Benign essential HTN Anxiety disorder Gilbert syndrome Vertigo, intermittent HTN (hypertension) Hiatal hernia Nephrolithiasis Home Medications ?Medication ?Instructions ?Recorded ?Last Taken ?Type clonazepam 1 mg tablet 1 mg PO BID PRN PRN Anxiety 07/20/22 Unknown History quetiapine 400 mg tablet 400 mg PO QHS bipolar 07/20/22 Unknown History ondansetron 8 mg disintegrating 8 mg PO Q8H PRN nausea and 12/06/22 06/02/24 04:30 Rx tablet vomiting #90 tabs gabapentin 400 mg capsule 800 mg PO TID nerve pain 09/28/23 06/02/24 04:30 History promethazine 25 mg tablet 25 mg PO TID PRN nausea and 04/14/24 Unknown Rx vomiting 7 days #21 tabs lamotrigine 100 mg tablet 200 mg PO DAILY 05/29/24 06/02/24 04:30 History omeprazole 20 mg capsule,delayed 20 mg PO DAILY 05/29/24 Unknown History release [id number] 3 cap PO QAC #300 caps 06/11/24 Unknown Rx 36,000-114,000-180,000 unit capsule,delay rel (Creon) benazepril 10 mg tablet 10 mg PO QHS Check with primary 09/01/24 Unknown Rx doctor #90 tabs metoprolol succinate 25 mg 25 mg PO QHS HTN #90 tabs 09/01/24 Unknown Rx tablet,extended release 24 hr rosuvastatin 20 mg tablet 20 mg PO QHS #90 tabs 09/01/24 Unknown Rx amlodipine 10 mg tablet 10 mg PO QHS HTN #90 tabs 09/24/24 Unknown Rx famotidine 40 mg tablet 40 mg PO QDAY #60 tabs 10/27/24 Unknown Rx pantoprazole 40 mg tablet,delayed 40 mg PO BID #60 TABLETS 11/04/24 Unknown Rx release Allergy/AdvReac Type Severity Reaction Status Date / Time ciprofloxacin AdvReac Upset Verified 12/01/24 07:43 Stomach doxycycline AdvReac Upset Verified 12/01/24 07:43 Stomach metronidazole (From Flagyl) AdvReac Upset Verified 12/01/24 07:43 Stomach Family History Aunt Colon cancer Father Diabetes Hypertension Mother High cholesterol Surgical History History of hernia surgery History of esophagogastroduodenoscopy (EGD) History of esophagogastroduodenoscopy (EGD) S/P colonoscopy History of incision and drainage S/P orchiopexy S/P vasectomy S/P cholecystectomy S/P right knee surgery S/P inguinal hernia repair Social History household members: spouse and children housing: house current occupational status: disabled Smoking Status: Former smoker Electronic Cigarette Use: with nicotine how long ago did patient quit smoking: Reports quitting cigarette tobacco use ~ 5 months prior 02/2022. second hand exposure: Yes alcohol intake: never substance use type: marijuana caffeine: Yes what type of physical activity do you participate in: none frequency: does not exercise seatbelt use: always do you feel safe at home: Yes EXAM Physical Exam Const Vital Signs: 12/01/24 07:42 12/01/24 07:42 12/01/24 09:42 Temperature 97 F L Temperature Source Temporal Pulse Rate 130 H 135 H 101 H Respiratory Rate 20 H 16 Blood Pressure 163/110 H 174/107 H Blood Pressure Mean 127 129 Pulse Ox 97 95 Oxygen Delivery Method Room Air Room Air 12/01/24 11:00 Temperature Temperature Source Pulse Rate 96 Respiratory Rate 24 H Blood Pressure 114/73 Blood Pressure Mean 86 Pulse Ox 99 Oxygen Delivery Method MDM MDM MDM Narrative Medical decision making narrative: 44-year-old male with past medical history HTN, HLD, cannabinoid hyperemesis syndrome presents for evaluation of nausea and vomiting. Patient states 4 days ago he smoked marijuana. States since then he has had nausea and vomiting. Endorses abdominal cramping secondary to the consistent nausea and vomiting. States it feels like his typical cannabinoid hyperemesis syndrome. Differential diagnosis includes but is not limited to cannabinoid hyperemesis syndrome, electrolyte abnormality, dehydration, UTI, suspect less likely intra-abdominal process. Given that patient feels that this is similar to his typical cannabinoid hyperemesis syndrome and this started after marijuana abuse, highly likely this is the source of his nausea and vomiting. Abdominal exam is benign therefore do not think any imaging is needed at this time. Will perform basic abdominal labs. Will treat for hyperemesis syndrome with NS bolus, Haldol, Benadryl, Zofran. CBC with leukocytosis of 25.1 on chart review, patient has a history of leukocytosis with his nausea and vomiting. No anemia. CMP shows dehydration with anion gap of 22. His BUN is 24. Creatinine is 1.68. In March 2024 creatinine was 1.35. Bilirubin elevated at 1.56. This can be seen with nausea and vomiting. No transaminitis. Lipase unremarkable. Mild hyperglycemia at 166. I suspect patient's anion gap is likely secondary to dehydration however cannot rule out DKA. Will add on urine, VBG, beta hydroxybutyrate. On reevaluation, patient's nausea and vomiting has improved. He still endorsing abdominal pain. Given his leukocytosis we will perform CT abdomen pelvis. Will give another NS bolus and repeat BMP. VBG unremarkable without acidosis. Beta hydroxybutyrate mildly elevated at 0.5. CT abdomen pelvis without any acute intra-abdominal pathology. UA negative for UTI. Mild ketones. Consistent with mild dehydration and not DKA. Repeat BMP after fluids shows resolved anion gap. Creatinine function improving. Patient's lab abnormalities were secondary to dehydration from nausea and vomiting. On reevaluation, patient no longer vomiting. Symptoms are improving. Can tolerate p.o. intake. Patient stable to discharge home. Will give Zofran as needed for nausea and vomiting. Follow-up with primary care physician. Educated to refrain from marijuana abuse. He confirmed understand the plan. Impression: 1. Cannabinoid hyperemesis syndrome 2. Dehydration secondary to #1 Lab Data Labs: Laboratory Results - last 24 hr 12/01/24 12/01/24 12/01/24 08:00 10:26 11:09 WBC 25.1 H RBC 5.18 Hgb 15.7 Hct 44.3 MCV 85.5 MCH 30.3 MCHC 35.4 RDW Std Deviation 42.2 RDW Coeff of [place] 13.5 Plt Count 302 MPV 12.0 Immature Gran % (Auto) 0.800 Neut % (Auto) 85.8 H Lymph % (Auto) 7.3 L [place] % (Auto) 5.7 Eos % (Auto) 0.1 Baso % (Auto) 0.3 Absolute Neuts (auto) 21.5 H Absolute Lymphs (auto) 1.84 Nucleated RBC % 0 Platelet Estimate ADEQUATE Sodium 138 139 Potassium 3.8 4.1 Chloride 98 106 Carbon Dioxide 17.1 L 21.7 Anion Gap 22 H 12 BUN 24 H 21 H Creatinine 1.68 H 1.29 H Estim Creat Clear Calc 63.88 83.19 Est GFR (MDRD) Non-Af 50 L 69 BUN/Creatinine Ratio 14.1 16.1 Glucose 166 H 118 H Calcium 10.5 8.7 Total Bilirubin 1.56 H AST 36 ALT 27 Alkaline Phosphatase 120 Total Protein 8.5 H Albumin 5.4 H Globulin 3.1 Albumin/Globulin Ratio 1.7 Lipase 23 b-Hydroxybutyric mmol/L 0.5 H Urine Color Yellow Urine Clarity Clear Urine pH 7.0 Ur Specific [place] 1.010 Urine Protein 100 H Urine Glucose (UA) Normal Urine Ketones 15 H Urine Occult Blood 25 H Urine Nitrite Negative Urine Bilirubin Negative Urine Urobilinogen Normal Ur Leukocyte Esterase Negative Urine RBC 0-5 SEEN Urine WBC 0 SEEN Ur Squamous Epith Cells 0 SEEN Urine Bacteria 0 SEEN Urine Mucus 0 SEEN ABG Data ABG results: ABG 12/01/24 09:30 Specimen Type GAYE Sample Site Not entered VBG pH 7.43 H VBG pO2 43 H VBG HCO3 22 VBG Total CO2 23 VBG O2 Sat (Calc) 81 H VBG Base Excess -2 L POC Mix VBG pCO2 Pt Tmp 33.3 L O2 Delivery Device Not entered Radiography Diagnostic Testing: Clinical Impression(s) from Imaging Studies Abdomen/Pelvis CT 12/01/24 08:57 IMPRESSION: Stable examination. Reading Location: [facility] Discharge Plan Triage Chief Complaint: Abd Pain ED Provider: Rajat Torres Dx/Rx/DC Orders Prescriptions: No Action ondansetron 8 mg tablet,disintegrating 8 mg PO Q8H PRN (Reason: nausea and vomiting) Qty: 90 3RF quetiapine 400 mg tablet 400 mg PO QHS clonazepam 1 mg tablet 1 mg PO BID PRN PRN (Reason: Anxiety) Patient Comments: weaning off taking 1/[address] brandon casas gabapentin 400 mg capsule 800 mg PO TID lamotrigine 100 mg tablet 200 mg PO DAILY omeprazole 20 mg capsule,delayed release(DR/EC) 20 mg PO DAILY promethazine 25 mg tablet 25 mg PO TID PRN (Reason: nausea and vomiting) 7 Days Qty: 21 0RF Creon 36,000-114,000- 180,000 unit capsule,delayed release(DR/EC) 3 cap PO QAC Qty: 300 3RF Rx Instructions: administer 2-3 capsules with meals and 1-2 with snacks. Max 10 capsules daily metoprolol succinate 25 mg tablet extended release 24 hr 25 mg PO QHS Qty: 90 1RF benazepril 10 mg tablet 10 mg PO QHS Qty: 90 1RF rosuvastatin 20 mg tablet 20 mg PO QHS Qty: 90 1RF amlodipine 10 mg tablet 10 mg PO QHS Qty: 90 1RF famotidine 40 mg tablet 40 mg PO QDAY Qty: 60 2RF pantoprazole 40 mg tablet,delayed release (DR/EC) 40 mg PO BID Qty: 60 5RF Primary Care Provider: Adelso Sevilla Referrals: Adelso Sevilla MD [Primary Care Provider] - Print Language: Estonian
[2024-12-01] MEDS: DiphenhydrAMINE 50 MG/ML Syringe IV (08:05)
[2024-12-01] MEDS: 0.9% Normal Saline (1000mL) 1,000 ML 999 ML IV (08:05)
[2024-12-01 08:08] LABS: Hematocrit 44.3 % (40-54); Hemoglobin 15.7 g/dL (13.0-16.5); Immature Granulocytes Count 0.190 X10^3/uL (0.0-0.0); Mean Corp Hgb Conc 35.4 g/dL (32-36); Mean Corpuscular Volume 85.5 fL (80-94); Mean Platelet Vol. 12.0 fl (6.2-12.0); NRBC Flagged by Analyzer 0 % (0-5); POSITIVE DIFFERENTIAL YES; Platelet Count 302 K/mm3 (150-450); RBC Distribution Width CV 13.5 % (11.6-14.6); RBC Distribution Width SD 42.2 fl (35.1-43.9); Red Blood Count 5.18 M/mm3 (4.6-6.2); White Blood Count 25.1 K/mm3 (4.4-11.0)
[2024-12-01 08:11] LABS: Differential Indicated SCAN CRITERIA MET
[2024-12-01 08:36] LABS: AST(SGOT) 36 U/L (<=37); Alanine Aminotransfer ALT/SGPT 27 U/L (<=46); Albumin, Serum 5.4 g/dL (3.5-5.0); Alkaline Phosphatase 120 U/L (40-129); Anion Gap 22 (5-15); BUN 24 mg/dL (4-19); BUN/Creat Ratio 14.1 RATIO (10-20); Calcium,Total 10.5 mg/dL (7.6-11.0); Carbon Dioxide 17.1 mmol/L (21.0-32.0); Chloride 98 mmol/L (98-108); Estimated Creatinine Clearance 63.88 ml/min (50-250); Globulin 3.1 g/dL (2.2-4.2); Glucose 166 mg/dL (70-99); Lipase 23 U/L (13-75); Potassium 3.8 mmol/L (3.3-5.1)
--- NOTE | 2024-12-01 08:57 | CT_ITS ---
PROCEDURE: ABDOMEN/PELVIS W IV CONT ONLY 12/01/2024 REASON FOR EXAM: ABDOMINAL PAIN Nausea and vomiting. Cyclic vomiting. TECHNIQUE: ABDOMEN/PELVIS W IV CONT ONLY Coronal and Sagittal reconstruction series were provided. CONTRAST: Isovue-300 VOLUME: 95 mL One or more dose reduction techniques were used (e.g., Automated exposure control, adjustment of the mA and/or kV according to patient size, use of iterative reconstruction technique. RADIATION DOSE SUMMARY: CTDlvol: 12.6 mGy DLP: 992.24 mGycm COMPARISON: Prior study dated April 14, 2024. FINDINGS: Lung bases: Minimal bibasilar dependent atelectasis. Liver: Diffuse fatty infiltration. Gallbladder: Surgically absent. Spleen: Normal size. Pancreas: Normal size without evidence of mass surrounding inflammation or ductal dilation. Adrenals: Stable enlargement of the left adrenal gland suggestive of possible adrenal hyperplasia. Kidneys: The calculus in the upper pole calyx of the left kidney. No evidence of hydronephrosis. 1 cm cyst is seen in the posterior medial aspect of the upper pole of the left kidney. Incidental note is made of a left retroaortic renal vein. This is a normal variant. Bladder: Unremarkable Bowel: Unremarkable Appendix: Unremarkable Lymph nodes: Unremarkable. Vasculature: Mild diffuse atherosclerotic calcifications are noted. Peritoneum / Retroperitoneum: Prior right inguinal hernia repair. Small left inguinal hernia containing fat. Bones: Anterior spondylosis at the T11-T12 level. CT/Abdomen/Pelvis W IV Cont ONLY IMPRESSION: Stable examination. Reading Location: [facility]
[2024-12-01 09:34] LABS: SITE Not entered; VBG BASE EXCESS -2 mmol/L (-1.0-3.5); VBG PO2 43 mmHg (25-40); VBG SO2 81 % (50-70); VBG TCO2 23 mmol/L (23-33)
[2024-12-01 09:35] LABS: BETA-HYDROXYBUTYRATE 0.5 mmol/L (0.0-0.3)
[2024-12-01 09:42] VITALS: BP 174/107; PULSE 101; RESP 16; O2SAT 95
[2024-12-01] MEDS: 0.9% Normal Saline (1000mL) 1,000 ML 1000 ML IV (09:46)
[2024-12-01 10:33] LABS: Mucous, Urine 0 SEEN /hpf (<or=2+); Squamous Epithelial Cells - UA 0 SEEN /hpf (0-5)
[2024-12-01 10:45] LABS: Color, Urine Yellow (Yellow); Glucose, Dipstick Normal (Normal); Ketone-Dipstick 15 mg/dl (Negative); Leukocyte Esterase-Dipstick Negative /ul (Negative); Nitrite-Dipstick Negative (Negative); Occult Blood-Urine 25 /ul (Negative); Protein-Dipstick 100 mg/dl (Negative); Specific Gravity, Urine 1.010 (1.002-1.030); Urine Bilirubin Dipstick Negative (Negative)
[2024-12-01 10:56] LABS: Red Blood Cells-Urine 0-5 SEEN /hpf (0-5)
[2024-12-01 11:00] VITALS: BP 114/73; PULSE 96; RESP 24; O2SAT 99
[2024-12-01 11:42] LABS: Anion Gap 12 (5-15); BUN 21 mg/dL (4-19); BUN/Creat Ratio 16.1 RATIO (10-20); Calcium,Total 8.7 mg/dL (7.6-11.0); Carbon Dioxide 21.7 mmol/L (21.0-32.0); Chloride 106 mmol/L (98-108); Estimated Creatinine Clearance 83.19 ml/min (50-250); Glucose 118 mg/dL (70-99); Potassium 4.1 mmol/L (3.3-5.1)
[2024-12-01 12:18] VITALS: BP 120/96; PULSE 95; RESP 12; TEMP 36.1; O2SAT 99
== END 2024-12-01 12:21 | disposition home or self-care (01) ==
PROVIDERS: Emergency Provider Surgery; PCP Internal Medicine; Visit Provider Surgery
DX: R10.9 Unspecified abdominal pain (principal); F12.988 Cannabis use, unspecified with other cannabis-induced disorder; E86.0 Dehydration; I10 Essential (primary) hypertension; R11.2 Nausea with vomiting, unspecified; Z86.718 Personal history of other venous thrombosis and embolism; Z87.891 Personal history of nicotine dependence; R73.9 Hyperglycemia, unspecified; E78.49 Other hyperlipidemia; D72.829 Elevated white blood cell count, unspecified
CPT/HCPCS: 74177; 80048; 80053; 81001; 82010; 82803; 83690; 85025; 96361; 96374; 96375; 99284; Q9967; A4216; J2405

== ENCOUNTER 2025-01-26 15:35 | Inpatient (IN) | payer MEDICARE, MEDICAID, SELFPAY ==
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
--- OUTSIDE RECORDS SUMMARY | 2025-01-05 10:24 | XMS RPT_ITS ---
Author Name Auto Generated Organization OHIP Care Team Providers Care Strap Stitcher Name Role Phone ARA WELSH Attending Unavailable ARA WELSH Primary Care Unavailable PROBLEMS DATE TYPE CONDITION / CODE ATTENDING STATUS ELIAN RCE 05/21/2018 Active Pain in testicle , unspecified laterality / N50.819(ICD-10) ARA WELSH Active [facility] 01/05/2025 Active Radiculopathy of lumbar region / M54.16(ICD-10) ARA WELSH Active [facility] 01/05/2025 Active Acute left-sided back pain, unspecified back location / M54.9(ICD-10) ARA WELSH Active [facility] PROCEDURES No Procedure Records Found RESULTS PROGRESS Observed: 01/20/2025 7:48 AM Status: COMPLETED Source: [facility] HNO ID: [id number] Author: ARA WELSH MD Service: ? Author Type: Physician Type: Progress Notes Filed: 01/20/2025 07:50 Note Text: Ordered by non physician out of encounter CNPTOUTREACH Observed: 01/20/2025 12:00 AM Status: COMPLETED Source: [facility] Patient Outreach ([facility]) CAS SANCHEZ ([id number]) 1980 M NFR Date Time Provider Department 01/20/25 ARA WELSH INTATUL During your visit today, we recorded the [...] Observed: 01/05/2025 11:20 AM Status: COMPLETED Source: [facility] ([id number]) 1980 Talia NFR Date Time Provider Department [...] due to cannabis abuse (HCC) 01/19/[address] [facility] Cyclic vomiting syndrome Dyspepsia and other specified disorders of function of stomach EXT THROMBOS HEMORRHOID 12/25/2006 Gilbert's syndrome HEPATITIS A W/O COMA 08/19/2008 H/O hepatitis A per serology (IgM neg) --- 07/2008, [facility], scanned Hypertension Intermittent explosive disorder 12/31 Intracranial [...] kg/m? General: Awake, alert, in evident pain DIAPER FOLDER: Answering questions appropriately. Upper limb strength normal. [...] Ara Welsh MD Internal Medicine and Pediatrics [facility] 01/05/2025 12:00 PM Portions of note generated prior to visit. History of illness, past medical and surgical history, family and social history, medications, allergies, labs and imaging reviewed during visit and are updated as appropriate following visit. I spent 45 minutes in the visit, with more than 50% of the total csyk-vm-vblc time of the visit in counseling / coordination of care. Future Appointments Date Time Provider Department Center 02/05/2025 11:[address] [facility] [1] Social History Tobacco Use Smoking status: [...] [M54.9] Order(s):COMPREHENSIVE METABOLIC PANEL [SQCMP] Order #: [id number] FUTURE CT LUMBAR SPINE W IVCON [2272122] Order #: [id number] FUTURE CONSULT TO PHYSICAL THERAPY [9032] Order #: [id number]: 1 FUTURE Prescriptions as of 01/05/2025 - [...] Service: OFFICE/OUTPATIENT NEW MODERATE MDM 45 MINUTES [21870] Additional E/M codes: VISIT CPLX INHERENT EANDM ASSOC WITH MED * Disposition: Return in about 1 month (around 02/04/2025). Follow-up and Disposition History for Encounter Date Provider Department Center 01/05/2025 [id number], MARY FAMPWS Liang [facility] Encounter Status:Closed by ARA WELSH on 01/05/25 PROGRESS Observed: 01/05/2025 10:39 AM Status: COMPLETED Source: [facility] HNO ID: [id number] Author: ARA WELSH MD Service: ? Author [...] due to cannabis abuse (HCC) 01/19/[address] [facility] Cyclic vomiting syndrome Dyspepsia and other specified disorders of function of stomach EXT THROMBOS HEMORRHOID 12/25/2006 Gilbert's syndrome HEPATITIS A W/O COMA 08/19/2008 H/O hepatitis A per serology (IgM neg) --- 07/2008, [facility], scanned Hypertension Intermittent explosive disorder 12/31 Intracranial [...] kg/m? General: Awake, alert, in evident pain DIAPER FOLDER: Answering questions appropriately. Upper limb strength normal. [...] Ara Welsh MD Internal Medicine and Pediatrics [facility] 01/05/2025 12:00 PM Portions of note generated prior to visit. History of illness, past medical and surgical history, family and social history, medications, allergies, labs and imaging reviewed during visit and are updated as appropriate following visit. I spent 45 minutes in the visit, with more than 50% of the total mrgs-yb-alsr time of the visit in counseling / coordination of care. Future Appointments Date Time Provider Department Center 02/05/2025 11:20 AM Ara Welsh MD [facility] [1] Social History Tobacco Use Smoking [...] / CODE REACTION SEVERITY SOURCE 05/17/2018 DRUG INGREDI/[id number](S NOMED CT) DOXYCYCLINE GI UPSET [facility] 08/29/2013 DRUG INGREDI/[id number](S NOMED CT) LEVOFLOXACIN Vomiting [facility] 06/05/2012 DRUG INGREDI/[id number](S NOMED CT) CIPROFLOXACIN Vomiting [facility] ENCOUNTERS ADMIT/DISCHARGE ACCOUNT NUMBER ADMITTING ENCOUNTER CLASS LOC ATION SOURCE 01/05/2025/ 5 [id number] [facility] PAYERS ENCOUNTER GUARANTOR PAYER SUBSCRIBER SOURCE 01/05/2025 Primary Insurance:[facility] DUAL ADVANTAGE HMO SNPPolicy Number: [id number] Date:[id number] Name:Abby RIOSB: [id number] [place] [address] [facility]
[2025-01-26] VITALS (10 sets, daily range): BP systolic 109–151; BP diastolic 65–115; PULSE 84–137; RESP 14–29; TEMP 36.4–36.9; O2SAT 93–100; BMI 30.2; BMI 27.3
[2025-01-26] MEDS: 0.9% Normal Saline (1000mL) 1,000 ML 1000 ML IV (16:10)
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
[2025-01-26 16:28] LABS: Hematocrit 41.5 % (40-54); Hemoglobin 14.8 g/dL (13.0-16.5); Immature Granulocytes Count 0.070 X10^3/uL (0.0-0.0); Mean Corp Hgb Conc 35.7 g/dL (32-36); Mean Corpuscular Volume 84.7 fL (80-94); Mean Platelet Vol. 12.1 fl (6.2-12.0); NRBC Flagged by Analyzer 0 % (0-5); Platelet Count 246 K/mm3 (150-450); RBC Distribution Width CV 13.5 % (11.6-14.6); RBC Distribution Width SD 41.5 fl (35.1-43.9); Red Blood Count 4.90 M/mm3 (4.6-6.2); White Blood Count 15.2 K/mm3 (4.4-11.0)
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
[2025-01-26 16:54] LABS: Anion Gap 17 (5-15); BUN 9 mg/dL (4-19); BUN/Creat Ratio 6.5 RATIO (10-20); Calcium,Total 9.7 mg/dL (7.6-11.0); Carbon Dioxide 18.1 mmol/L (21.0-32.0); Chloride 101 mmol/L (98-108); Estimated Creatinine Clearance 84.59 ml/min (50-250); Glucose 113 mg/dL (70-99); Potassium 3.6 mmol/L (3.3-5.1)
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
[2025-01-26] MEDS: fentaNYL 100 MCG/2 ML Ampul 50 MCG IV ×2 (17:10→17:37)
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
--- NOTE | 2025-01-26 18:18 | ED.RN ---
Pt. failed ambulation. Attempted with walker and also failed. Pt. could get to ride of bed but whenever he put pressure on left leg he c/o lower back pain and lef flank/hip pain. Pt. very shaky and unsteady when attempting to walk with walker and was only able to move 3 steps.
[2025-01-26] MEDS: HYDROcodone Bitartrate/Apap 5/325 Tablet PO (18:28)
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
[2025-01-26] MEDS: 0.9% Saline Lock 10 ML Syringe IV ×2 (21:55→22:10)
[2025-01-26] MEDS: Metoprolol(XL)Succ 25 MG Tablet PO (22:18)
[2025-01-27] MEDS: 0.9% Saline Lock 10 ML Syringe IV ×7 (01:03→23:28)
[2025-01-27 01:05] VITALS: BP 124/90; PULSE 106; RESP 18; TEMP 36.6; O2SAT 96
[2025-01-27 05:30] VITALS: BP 119/91; PULSE 78; RESP 18; TEMP 36.7; O2SAT 96
[2025-01-27 06:40] LABS: Hematocrit 38.9 % (40-54); Hemoglobin 13.6 g/dL (13.0-16.5); Immature Granulocytes Count 0.050 X10^3/uL (0.0-0.0); Mean Corp Hgb Conc 35.0 g/dL (32-36); Mean Corpuscular Volume 86.4 fL (80-94); Mean Platelet Vol. 12.6 fl (6.2-12.0); NRBC Flagged by Analyzer 0 % (0-5); POSITIVE COUNT YES; RBC Distribution Width CV 13.7 % (11.6-14.6); RBC Distribution Width SD 42.7 fl (35.1-43.9); Red Blood Count 4.50 M/mm3 (4.6-6.2); White Blood Count 6.4 K/mm3 (4.4-11.0)
[2025-01-27 06:52] LABS: Differential Indicated SCAN CRITERIA MET
[2025-01-27] MEDS: Creon 12,000 unit DR CapSULE 9 CAP PO ×3 (08:29→16:47)
[2025-01-27] MEDS: FLU VACCINE 2025-26(6MOS UP) 45 MCG/0.5 ML SYRINGE IM (10:49)
[2025-01-27 11:30] VITALS: BP 103/78; PULSE 79; RESP 18; TEMP 36.2; O2SAT 98
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
[2025-01-27 17:30] VITALS: BP 128/98; PULSE 86; RESP 18; TEMP 36.4; O2SAT 99
[2025-01-27 20:21] VITALS: BP 119/110; PULSE 88
[2025-01-27] MEDS: Metoprolol(XL)Succ 25 MG Tablet PO (20:21)
[2025-01-27 21:00] VITALS: BP 116/104; PULSE 91; RESP 18; TEMP 36.3; O2SAT 99
[2025-01-28 03:32] VITALS: BP 117/106; PULSE 87; RESP 16; TEMP 36.6; O2SAT 97
[2025-01-28] MEDS: 0.9% Saline Lock 10 ML Syringe IV (04:24)
[2025-01-28] MEDS: Creon 12,000 unit DR CapSULE 9 CAP PO ×2 (07:59→10:59)
[2025-01-28 08:06] LABS: Hematocrit 36.2 % (40-54); Hemoglobin 12.8 g/dL (13.0-16.5); Immature Granulocytes Count 0.020 X10^3/uL (0.0-0.0); Mean Corp Hgb Conc 35.4 g/dL (32-36); Mean Corpuscular Volume 85.0 fL (80-94); Mean Platelet Vol. 12.1 fl (6.2-12.0); NRBC Flagged by Analyzer 0 % (0-5); Platelet Count 181 K/mm3 (150-450); RBC Distribution Width CV 13.4 % (11.6-14.6); RBC Distribution Width SD 41.7 fl (35.1-43.9); Red Blood Count 4.26 M/mm3 (4.6-6.2); White Blood Count 7.4 K/mm3 (4.4-11.0)
[2025-01-28 08:39] LABS: Anion Gap 13 (5-15); BUN 13 mg/dL (4-19); BUN/Creat Ratio 12.4 RATIO (10-20); Calcium,Total 9.0 mg/dL (7.6-11.0); Carbon Dioxide 20.4 mmol/L (21.0-32.0); Chloride 104 mmol/L (98-108); Estimated Creatinine Clearance 105.21 ml/min (50-250); Glucose 91 mg/dL (70-99); Potassium 4.0 mmol/L (3.3-5.1)
[2025-01-28 09:00] VITALS: BP 132/104; PULSE 89; RESP 18; TEMP 36.4; O2SAT 98
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
--- NOTE | 2025-01-28 12:36 | CASEMGMT ---
DIRK VILLALOBOS NOTE: Discharge order is in. Script obtained for FWW & sent to [facility] via [employer]. Per [facility] [facility] to be removed from [facility] stock. Walker provided to pt from stock, pt signed consignment form, copy given to pt, and form faxed to [employer] then placed on pt's chart. Script obtained for OP PT & faxed to them. Call placed to [facility]. Appt for OP PT scheduled for Sun @ 12:30 PM. This was placed in CM discharge plan. Pt made aware. Also notified to arrive 10-15 min early to complete paperwork. Pt states his has picked up new Rx from [facility] retail pharmacy already. He denies further discharge needs or concerns. Pt voices appreciation for assistance provided. Jason HERMAN RN CM
[2025-01-28 14:00] VITALS: BP 122/99; PULSE 88; RESP 16; TEMP 36.6; O2SAT 98
--- NOTE | 2025-01-28 14:14 | PHA.DC.MC.R ---
Pharmacy [facility] Counseling Pharmacy Service has performed discharge medication reconciliation and counseling for this patient. 1. OXYCODONE 5MG PO Q6H PRN PAIN The patient's discharge medication list was reviewed for discrepancies and discrepancies were resolved. The patient was counseled on the following discharge medications and changes in medications for homegoing were reviewed. The Reason for Use, instructions for use, and potential side effects were reviewed for all new medications. The patient's questions regarding all of their medications were answered. The patient was able to verbally demonstrate an understanding of their discharge medications. Medications at Discharge Home Medications clonazepam 1 mg tablet 1 mg PO BID PRN PRN Anxiety 07/20/22 quetiapine 400 mg tablet 400 mg PO QHS bipolar 07/20/22 gabapentin 400 mg capsule 800 mg PO BID nerve pain 09/28/23 promethazine 25 mg tablet 25 mg PO TID PRN nausea and vomiting 7 days #21 tabs 04/14/24 omeprazole 20 mg capsule,delayed release 20 mg PO DAILY reflux 05/29/24 [id number] 36,000-114,000-180,000 unit capsule,delay rel (Creon) 3 cap PO QAC #300 caps 06/11/24 benazepril 10 mg tablet 10 mg PO QHS blood pressure #90 tabs 09/01/24 metoprolol succinate 25 mg tablet,extended release 24 hr 25 mg PO QHS HTN #90 tabs 09/01/24 rosuvastatin 20 mg tablet 20 mg PO QHS cholesterol #90 tabs 09/01/24 amlodipine 10 mg tablet 10 mg PO QHS HTN #90 tabs 09/24/24 famotidine 40 mg tablet 40 mg PO QDAY reflux #60 tabs 10/27/24 pantoprazole 40 mg tablet,delayed release 40 mg PO BID reflux #60 TABLETS 11/04/24 lamotrigine 150 mg tablet 150 mg PO BID seizures 01/26/25 oxycodone 5 mg tablet 5 mg PO Q6H PRN pain 5 days #20 tabs 01/28/25
== END 2025-01-28 14:42 | disposition home or self-care (01) | DRG 556 ==
LOC: ED 16:23 → PCU 21:22
PROVIDERS: Admitting Provider Family Medicine; Emergency Provider Student in an Organized Health Care Education/Training Program; PCP Internal Medicine; Visit Provider Student in an Organized Health Care Education/Training Program
DX: M25.552 Pain in left hip (principal); K86.1 Other chronic pancreatitis; E78.5 Hyperlipidemia, unspecified; F31.9 Bipolar disorder, unspecified; I10 Essential (primary) hypertension; K21.9 Gastro-esophageal reflux disease without esophagitis; M79.605 Pain in left leg; F12.90 Cannabis use, unspecified, uncomplicated; Z87.891 Personal history of nicotine dependence; Z82.49 Family history of ischemic heart disease and other diseases of the circulatory system; Z86.16 Personal history of COVID-19; Z79.899 Other long term (current) drug therapy; F43.12 Post-traumatic stress disorder, chronic; Z86.718 Personal history of other venous thrombosis and embolism; R10.9 Unspecified abdominal pain; R53.81 Other malaise; V89.2XXA Person injured in unspecified motor-vehicle accident, traffic, initial encounter; Z90.49 Acquired absence of other specified parts of digestive tract
CPT/HCPCS: 36415; 70450; 71260; 72125; 72128; 72131; 73010; 73030; 73552; 74177; 80048; 85025; 90715; 97162; 99285; 99406; Q9967; A4216; J2405

== ENCOUNTER 2025-02-04 14:47 | Emergency (ER) | payer MEDICARE, MEDICAID, SELFPAY ==
[2025-02-04 14:49] VITALS: BP 145/99; PULSE 124; RESP 18; TEMP 36.8; O2SAT 95; BMI 28.8
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
[2025-02-04] MEDS: fentaNYL 100 MCG/2 ML Ampul 50 MCG IV (15:23)
[2025-02-04] MEDS: 0.9% Normal Saline (1000mL) 1,000 ML 1000 ML IV (15:23)
[2025-02-04 15:36] LABS: Mucous, Urine 0 SEEN /hpf (<or=2+); Red Blood Cells-Urine 0 SEEN /hpf (0-5); Squamous Epithelial Cells - UA 0 SEEN /hpf (0-5)
[2025-02-04 15:44] LABS: Color, Urine Yellow (Yellow); Glucose, Dipstick Normal (Normal); Ketone-Dipstick Negative (Negative); Leukocyte Esterase-Dipstick Negative /ul (Negative); Nitrite-Dipstick Negative (Negative); Occult Blood-Urine 10 /ul (Negative); Protein-Dipstick 15 mg/dl (Negative); Specific Gravity, Urine 1.010 (1.002-1.030); Urine Bilirubin Dipstick Negative (Negative)
[2025-02-04 15:48] VITALS: BP 125/87; PULSE 85; RESP 12; O2SAT 96
[2025-02-04 16:00] VITALS: BP 125/87; PULSE 81; RESP 24; O2SAT 94
[2025-02-04 16:00] LABS: Hematocrit 40.5 % (40-54); Hemoglobin 13.9 g/dL (13.0-16.5); Immature Granulocytes Count 0.090 X10^3/uL (0.0-0.0); Mean Corp Hgb Conc 34.3 g/dL (32-36); Mean Corpuscular Volume 86.2 fL (80-94); Mean Platelet Vol. 11.8 fl (6.2-12.0); NRBC Flagged by Analyzer 0 % (0-5); Platelet Count 241 K/mm3 (150-450); RBC Distribution Width CV 13.2 % (11.6-14.6); RBC Distribution Width SD 41.2 fl (35.1-43.9); Red Blood Count 4.70 M/mm3 (4.6-6.2); White Blood Count 11.0 K/mm3 (4.4-11.0)
[2025-02-04 16:17] LABS: AST(SGOT) 28 U/L (<=37); Alanine Aminotransfer ALT/SGPT 39 U/L (<=46); Albumin, Serum 4.9 g/dL (3.5-5.0); Alkaline Phosphatase 109 U/L (40-129); Anion Gap 11 (5-15); BUN 6 mg/dL (4-19); BUN/Creat Ratio 5.2 RATIO (10-20); Calcium,Total 9.5 mg/dL (7.6-11.0); Carbon Dioxide 25.2 mmol/L (21.0-32.0); Chloride 103 mmol/L (98-108); Estimated Creatinine Clearance 105.81 ml/min (50-250); Globulin 2.3 g/dL (2.2-4.2); Glucose 100 mg/dL (70-99); Potassium 4.0 mmol/L (3.3-5.1)
[2025-02-04 17:00] VITALS: PULSE 88; RESP 25; O2SAT 96
[2025-02-04 17:18] LABS: Prothrombin Time (Protime)PT. 13.5 SECONDS (11.7-14.9)
[2025-02-04 17:19] LABS: Partial Thromboplast Time 25.3 Seconds (24.1-36.2)
[2025-02-04 18:00] VITALS: BP 148/108; PULSE 78; RESP 21; O2SAT 96
[2025-02-04 18:28] VITALS: BP 137/109; PULSE 80; RESP 18; TEMP 37; O2SAT 98
== END 2025-02-04 18:28 | disposition home or self-care (01) ==
PROVIDERS: Emergency Provider Student in an Organized Health Care Education/Training Program; PCP Internal Medicine; Visit Provider Student in an Organized Health Care Education/Training Program
DX: S30.0XXA Contusion of lower back and pelvis, initial encounter (principal); S32.049A Unspecified fracture of fourth lumbar vertebra, initial encounter for closed fracture; F31.9 Bipolar disorder, unspecified; Z87.891 Personal history of nicotine dependence; I10 Essential (primary) hypertension; Z86.718 Personal history of other venous thrombosis and embolism; R19.00 Intra-abdominal and pelvic swelling, mass and lump, unspecified site; Z86.16 Personal history of COVID-19; Z90.49 Acquired absence of other specified parts of digestive tract; F12.90 Cannabis use, unspecified, uncomplicated; V49.9XXA Car occupant (driver) (passenger) injured in unspecified traffic accident, initial encounter
CPT/HCPCS: 74177; 80053; 81001; 85025; 85610; 85730; 93005; 96361; 96374; 99284; Q9967; A4216